=== PATIENT | female | born 1970 | race African-American/Black ===

== ENCOUNTER 2019-03-25 13:21 | Inpatient (IN) | payer OTHER ==
[~2019-03-25] VITALS: Ht 170.2 cm; Wt 100.4 kg
[~2019-03-25 13:21] MED LIST: LORAZEPAM 1 MG TABLET FOR AGITATION PO PRN; QUET300T5 PO; TRAZ-214 PO
--- NOTE | 2019-03-25 13:39 | NUR ---
MS/RN NOTE RECEIVED AMBULATING PATIENT. PATIENT ALERT AND ORIENTED X4. IN ROOM AIR AND DENIES SOB. RESPIRATION REGULAR AND UNLABORED. DENIES PAIN. THE PATIENT IN NO APPARENT DISTRESS. DENIES S-/HI AT THIS TIME. NO IV PRESENT. PATIENT IS GIVEN ORIENTATION TO THE UNIT/FLOOR AND SHE VERBALIZED UNDERSTANDING. WILL CONTINUE TO MONITOR. Addendum: 03/25/19 at 1910 by LAURYN VÁZQUEZ RN THE PATIENT STATED HAVING AUDITORY HALLUCINATIONS. DENIES COMMAND HALLUCINATIONS. PER PATIENT " I JUST HEAR LOTS OF PEOPLE TALKING BUT NOTHING SPECIFIC".
[2019-03-25 14:00] VITALS: BP 123/72
[2019-03-25] MEDS ORDERED: HYDR25TA4 PO (14:29)
[2019-03-25] MEDS ORDERED: ZOLP10TA6 PO (14:29)
[2019-03-25] MEDS ORDERED: LORA1TAB PO (14:29)
[2019-03-25] MEDS ORDERED: IBUP-1953 PO (14:29)
[2019-03-25] MEDS ORDERED: AMLO5TAB4 PO (14:29)
[2019-03-25] MEDS ORDERED: ACET-2030 PO (14:29)
[2019-03-25] MEDS ORDERED: MAGN400O6 PO (14:29)
[2019-03-25] MEDS ORDERED: QUET50TA PO (14:29)
[2019-03-25] MEDS ORDERED: QUET300T2 PO (14:29)
[2019-03-25] MEDS ORDERED: QUET100T PO (14:29)
[2019-03-25] MEDS ORDERED: MAG-55 PO (14:29)
[2019-03-25] MEDS ORDERED: MAG HYDROX/AL HYDROX/SIMETH 30 ML UDC PO PRN (15:00)
[2019-03-25] MEDS ORDERED: IBUPROFEN 200 MG TABLET PO PRN (15:00)
[2019-03-25] MEDS ORDERED: MAGNESIUM HYDROXIDE 30 ML UDC PO PRN (15:00)
[2019-03-25] MEDS ORDERED: ACETAMINOPHEN ES 500 MG TABLET PO PRN (15:00)
[2019-03-25] MEDS ORDERED: LORAZEPAM 1 MG TABLET FOR AGITATION PO PRN (15:00)
--- NOTE | 2019-03-25 15:59 | NUR ---
MS/RN NOTE PER DR AC REGULAR DIET. NOTED AND CARRIED OUT.
[2019-03-25 16:00] VITALS: BP 119/83
--- NOTE | 2019-03-25 18:35 | NUR ---
MS/RN CLOSING NOTE THE PATIENT ALERT AND ORIENTED X4. IN ROOM AIR AND SATURATION IS AT 99%. DENIES SOB. RESPIRATION REGULAR AND UNLABORED. DENIES PAIN. THE PATIENT IN NO APPARENT DISTRESS. THE PATIENT IS DENIES ANY HALLUCINATIONS AT THIS TIME. PATIENT IS CALM AND COOPERATIVE. BED LOW AND LOCKED. SIDE RAILS UP X2. CALL LIGHT WITHIN REACH. WILL ENDORSE TO KILN HEAD HOUSE OPERATOR.
--- NOTE | 2019-03-25 20:06 | NUR ---
RN MS OPENING NOTES RECEIVED PT IN BED, AWAKE ALERT ORIENTED X4, BREATHING EVEN AND UNLABORED ON ROOM AIR. NO COMPLAINT OF PAIN OR DISCOMFORT AT THIS TIME. DENIES HALLUCINATIONS AT THIS TIME, APPEARS CALM AND COOPERATIVE. BED IN LOCKED POSITION, CALL LIGHT WITHIN REACH AT ALL TIMES. WILL CONTINUE TO MONITOR FREQUENTLY
[2019-03-25] MEDS ORDERED: SEROQUEL 300 MG PO ONE (22:00)
--- NOTE | 2019-03-26 06:13 | NUR ---
RN MS CLOSING NOTES PT REMAINS IN BED, SLEEPING, EASILY AROUSED TO NAME CALL. BREATHING EVEN AND UNLABORED ON ROOM AIR, NO SOB. NO COMPLAINT OF PAIN OR DISCOMFORT, DENIES HALLUCINATIONS, CALM AND COOPERATIVE DURING SHIFT. ALL NEEDS MET, COMPLIANT WITH CARE PLAN. BED IN LOCKED POSITION, CALL LIGHT WITHIN REACH AT ALL TIMES, WILL ENDORSE TO DAY NURSE FOR JUANJO
--- NOTE | 2019-03-26 07:40 | NUR ---
MS/RN OPENING NOTE THE PATIENT ALERT AND ORIENTED X4. IN ROOM AIR AND DENIES SOB. RESPIRATION REGULAR AND UNLABORED. DENIES PAIN. THE PATIENT DENIES SI/HI. CONFIRMS HAVING AUDITORY HALLUCINATION. ACCORDING TO HER THERE ARE MULTIPLE VOICES BUT THE NON OF THE VOICES GIVE COMMANDS OR ABOUT SI/HI. PER PATIENT " THEY ARE JUST TALKING". BED LOW AND LOCKED. SIDE RAILS UP X2. CALL LIGHT WITHIN REACH. WILL CONTINUE TO MONITOR.
[2019-03-26 08:00] VITALS: BP 117/80
[2019-03-26] MEDS: AMLODIPINE 5 MG PO SCH (08:14)
[2019-03-26] MEDS: HYDROCHLOROTHIAZIDE 25 MG PO SCH (08:15)
[2019-03-26] MEDS ORDERED: HYDROCHLOROTHIAZIDE 25 MG TABLET PO SCH (09:00)
[2019-03-26] MEDS ORDERED: AMLODIPINE BESYLATE 5 MG TABLET PO SCH (09:00)
[2019-03-26 16:00] VITALS: BP 108/68
--- NOTE | 2019-03-26 18:37 | NUR ---
MS/RN CLOSING NOTE THE PATIENT ALERT AND ORIENTED X4. DENIES PAIN. RESPIRATION REGULAR AND UNLABORED. DENIES SOB. THE PATIENT IN NO APPARENT DISTRESS. DENIES SI/HI. THE PATIENT IN NO APPARENT DISTRESS. BED LOW AND LOCKED. SIDE RAILS UP X2. CALL LIGHT WITHIN REACH. WILL ENDORSE TO SALES REPRESENTATIVE GROCERIES.
[2019-03-26 20:00] VITALS: BP 106/65
[2019-03-26 21:47] VITALS: BP 106/65
[2019-03-26] MEDS ORDERED: SEROQUEL 300 MG PO ONE (22:00)
[2019-03-27 08:00] VITALS: BP 126/88
--- NOTE | 2019-03-27 08:08 | NUR ---
MS RN OPENING NOTES RECEIVED PT SITTING UP IN BED. PT IS A/O X4, AFEBRILE. RESPIRATIONS ARE EVEN AND UNLABORED, NOT IN ANY ACUTE DISTRESS NOTED. PT DENIES ANY PAIN AT THIS TIME, NO C/O SOB, N/V NOTED. NO IV ACCESS. DENIES ANY HALLUCINATIONS, HI/SI. INSTRUCTED PT TO USE CALL LIGHT WHEN ASSISTANCE IS NEEDED, CALL LIGHT IS LEFT WITHIN REACH. WILL CONTINUE TO MONITOR THROUGHOUT SHIFT FOR CONTINUITY OF CARE.
[2019-03-27] MEDS: HYDROCHLOROTHIAZIDE 25 MG PO SCH (08:29)
[2019-03-27] MEDS: AMLODIPINE 5 MG PO SCH (08:30)
--- NOTE | 2019-03-27 13:34 | NUR ---
MS RN NOTES-- PT ABLE TO MAKE NEEDS KNOWN. PT NOT IN ANY APPARENT ACUTE DISTRESS. WILL CONTINUE TO MONITOR.
--- NOTE | 2019-03-27 18:28 | NUR ---
MS RN CLOSING NOTES ALL DUE MEDS GIVEN, NEEDS MET AND RENDERED. PT IS A/O X4, AFEBRILE. RESPIRATIONS ARE EVEN AND UNLABORED, NOT IN ANY ACUTE DISTRESS NOTED. PT DENIES ANY PAIN AT THIS TIME, NO C/O SOB, N/V. NO IV ACCESS. SAFETY MEASURES ARE IN PLACE. REMINDED PT TO USE CALL LIGHT WHEN ASSISTANCE IS NEEDED, CALL LIGHT IS LEFT WITHIN REACH. WILL ENDORSE TO NEXT SHIFT FOR CONTINUITY OF CARE.
--- NOTE | 2019-03-27 19:10 | NUR ---
RN MS OPENING NOTES RECEIVED PATIENT IN BED AWAKE ALERT AND ORIENTED X4, RESPIRATIONS EVEN AND UNLABORED WITH EQUAL RISE AND FALL OF CHEST, DENIES ANY PAIN OR DISCOMFORT, NO IV ACCESS MD AWARE, ORIENTED TO STAFF AND CALL LIGHT AND KEPT WITHIN REACH, FLUIDS OFFERED, IN NO ACUTE DISTRESS. ALL NEEDS ATTENDED AT THIS TIME, WILL CONTINUE TO MONITOR.
[2019-03-27 20:00] VITALS: BP 137/88
[2019-03-27] MEDS ORDERED: SEROQUEL 300 MG PO ONE (22:00)
--- NOTE | 2019-03-28 07:38 | NUR ---
MS RN OPENING NOTES RECEIVED PATIENT AWAKE IN BED IN NO ACUTE SIGNS OF DISTRESS. A/O X4. VERBALLY RESPONSIVE, DENIES PAIN OR ANY DISCOMFORTS AT THIS TIME. ON ROOM AIR, RESPIRATIONS EVEN AND UNLABORED. NO IV ACCESS. SAFETY PRECAUTIONS IN PLACE. BED IN LOW LOCKED POSITION WITH SR UP X2. CALL LIGHT WITHIN REACH. WILL CONTINUE TO MONITOR ACCORDINGLY.
--- NOTE | 2019-03-28 07:39 | NUR ---
RN MS CLOSING NOTES PATIENT IN BED AWAKE ALERT AND ORIENTED X4, RESPIRATIONS EVEN AND UNLABORED WITH EQUAL RISE AND FALL OF CHEST, DENIES ANY PAIN OR DISCOMFORT, NO IV ACCESS MD AWARE, CALL LIGHT KEPT WITHIN REACH, FLUIDS OFFERED, IN NO ACUTE DISTRESS. ALL NEEDS ATTENDED AT THIS TIME, WILL CONTINUE TO MONITOR AND ENDORSE TO NEXT SHIFT, NO CHANGES IN BEHAVIOR.SLEPT WELL.
[2019-03-28 08:00] VITALS: BP 98/58
[2019-03-28] MEDS: AMLODIPINE 5 MG PO SCH (08:41)
[2019-03-28] MEDS: HYDROCHLOROTHIAZIDE 25 MG PO SCH (08:42)
--- NOTE | 2019-03-28 08:43 | NUR ---
RN NOTES PATIENT NOTED WITH BP OF 98/58 MMHG THIS MORNING. HOME BP MEDS NOT GIVEN AND PT AWARE. WILL CONTINUE TO MONITOR.
--- NOTE | 2019-03-28 14:34 | NUR ---
RN NOTES PATIENT PICKED-UP BY MIGUEL FROM DR AC OFFICE FOR [employer] VISIT TO DR. CID EYE BRAINERD PER PROTOCOL BEFORE STARTING INVESTIGATIONAL MEDICATION.
[2019-03-28 16:00] VITALS: BP 100/60
--- NOTE | 2019-03-28 17:36 | NUR ---
RN NOTES PT CAME BACK FROM OPHTHALMOLOGY VISIT ACCOMPANIED BY MIGULE. NO ACUTE SIGNS OF DISTRESS NOTED. WILL CONTINUE TO MONITOR
--- NOTE | 2019-03-28 19:37 | NUR ---
MS RN CLOSING NOTES PATIENT AWAKE AND RESTING IN BED AT THIS TIME. A/O X4. VERBALLY RESPONSIVE. ON ROOM AIR, RESPIRATIONS EVEN AND UNLABORED. NO IV ACCESS. SAFETY PRECAUTIONS IN PLACE. BED IN LOW LOCKED POSITION WITH SR UP X2. CALL LIGHT WITHIN REACH. ALL NEEDS AND CARE ATTENDED WELL. ENDORSED TO SILO TENDER NURSE AARON FOR JUANJO.
[2019-03-28 20:00] VITALS: BP 121/84
--- NOTE | 2019-03-28 20:00 | NUR ---
CLINICAL TRIAL/RN NOTES RECEIVED PATIENT AWAKE, ABLE TO VERBALIZE NEEDS, ALERT, ORIENTED X3, PARTICIPATIVE TO CARE, WITH SELF CARE. RESPIRATIONS EVEN AND UNLABORED, WILL MONITOR FOR ANY CHANGES, SKIN WARM TO TOUCH. BED LOCKED, CALL LIGHTS WITHIN REACH. RECEIVED ENDORSEMENT FROM AM RN FOR JUANJO.
[2019-03-28] MEDS ORDERED: SEROQUEL 150 MG PO ONE (22:00)
--- NOTE | 2019-03-29 07:16 | NUR ---
209 RN NOTES PATIETN ABLE TO VERBALIZE NEES, SKIN WARM TO TOUCH, RESPIRATIONS EVEN AND UNLABORED, SKIN WARM TO TOUCH. MARITZA MONITOR AND ENDORSE TO AM RN FOR JUANJO
--- NOTE | 2019-03-29 07:27 | NUR ---
MS RN OPENING NOTES RECEIVED PATIENT AWAKE IN BED IN NO ACUTE SIGNS OF DISTRESS. A/O X4. ABLE TO MAKE NEEDS KNOWN, DENIES PAIN OR ANY DISCOMFORTS AT THIS TIME. ON ROOM AIR, RESPIRATIONS EVEN AND UNLABORED. NO IV ACCESS. SAFETY MEASURES IN PLACE. BED IN LOW LOCKED POSITION WITH SR UP X2. WILL CONTINUE TO MONITOR ACCORDINGLY.
[2019-03-29 08:00] VITALS: BP 111/70
[2019-03-29] MEDS: AMLODIPINE 5 MG PO SCH (08:27)
[2019-03-29] MEDS: HYDROCHLOROTHIAZIDE 25 MG PO SCH (08:27)
--- NOTE | 2019-03-29 15:00 | NUR ---
RN NOTES PATIENT WENT TO THE [facility] ACCOMPANIED BY NUCLEAR MEDICINE PET CT TECHNOLOGIST TODAY.
[2019-03-29 16:00] VITALS: BP 128/85
--- NOTE | 2019-03-29 18:51 | NUR ---
MS RN CLOSING NOTES PATIENT AWAKE IN BED WATCHING TV. A/O X4. ABLE TO MAKE NEEDS KNOWN. AMBULATORY AND ENCOURAGED TO GET OUT OF HER ROOM TO TAKE BREAK. ON ROOM AIR, RESPIRATIONS EVEN AND UNLABORED, NO ACUTE DISTRESS NOTED. NO IV ACCESS. SAFETY MEASURES IN PLACE. BED IN LOW LOCKED POSITION WITH SR UP X2. CALL LIGHT WITHIN REACH. WILL ENDORSED TO SUPERVISOR TWISTING DEPARTMENT NURSE FOR CONTINUITY OF CARE.
--- NOTE | 2019-03-29 19:10 | NUR ---
MS RN OPENING NOTES RECEIVED PATIENT AWAKE IN BED, ALERT, ORIENTED X 4. BREATHING EVEN AND UNLABORED, IN NO ACUTE SIGNS OF DISTRESS. NO COMPLAINTS OF PAIN OR DISCOMFORT AT THIS TIME. NO IV ACCESS. SAFETY MEASURES IN PLACE. BED IN LOW LOCKED POSITION. WILL CONTINUE TO MONITOR ACCORDINGLY.
[2019-03-29 20:00] VITALS: BP 124/82
[2019-03-29] MEDS ORDERED: SEROQUEL 150 MG PO ONE (22:00)
--- NOTE | 2019-03-30 01:00 | NUR ---
RN NOTES Patient rounds- sleeping comfortably
--- NOTE | 2019-03-30 06:22 | NUR ---
MS RN CLOSING NOTES Patient sleeping in bed, easily arousable. Breathing even and unlabored. Not in any distress, on room air. No IV access. No acute changes overnight. Safety measures in place; call light within reach, bed in low, locked position. Will endorse JUANJO to oncoming RN
[2019-03-30 08:00] VITALS: BP 95/65
--- NOTE | 2019-03-30 08:00 | NUR ---
RN NOTES RECEIVED PATIENT IN THE BED, A/O X3, PATIENT HAS NO ACUTE RESPIRATORY DISTRESS, STABLE, V/S TAKEN BP-95/65, HELD AM BP HOME MEDICATION. ENCOURAGED PATIENT TO EXPRESS FEELINGS AND CONCERNS. PATIENT HAS AUDITORY HALLUCINATION. REFUSED SI/HI AT THIS TIME. PATIENT SELF CARE, AMBULATORY. NEEDS ATTENDED AND ANTICIPATED. SAFETY PRECAUTION MAINTAINED ALL THE TIME.
[2019-03-30 08:55] VITALS: BP 95/65
[2019-03-30] MEDS: AMLODIPINE 5 MG PO SCH (09:00)
[2019-03-30] MEDS: HYDROCHLOROTHIAZIDE 25 MG PO SCH (09:00)
--- NOTE | 2019-03-30 13:00 | NUR ---
RN NOTES PATIENT STABLE, RESTING IN THE BED. CONTINUED MONITORING Q 15 MINS.
[2019-03-30 16:20] VITALS: BP 110/73
--- NOTE | 2019-03-30 18:30 | NUR ---
RN NOTES PATIENT STABLE REFUSED SI/HI AT THIS TIME. REDIRECTABLE. PATIENT SELF CARE. CALL LIGHT WITHIN TO REACH. ENDORSED ONCOMING NURSE FOLLOW PLAN OF CARE.
--- NOTE | 2019-03-30 19:45 | NUR ---
RN OPENING NOTES RECEIVED PATIENT AWAKE IN BED, ALERT, ORIENTED X 4. RESTING COMFORTABLY. NO SIGNS OF RESPIRATORY DISTRESS. DENIES SHORTNESS OF BREATH. PATIENT DENIES PAIN OR DISCOMFORT AT THIS TIME. PATIENT HAS NO IV ACCESS. SAFETY PRECAUTIONS IMPLEMENTED; CALL LIGHT WITHIN REACH, BED LOW, BED LOCKED, SIDE RAILS UP X2. WILL CONTINUE TO MONITOR PATIENT ACCORDINGLY.
[2019-03-30 20:00] VITALS: BP 112/68
[2019-03-30] MEDS ORDERED: SEROQUEL 300 MG PO ONE (22:00)
--- NOTE | 2019-03-30 22:11 | NUR ---
RN NOTES MEDICATION: SEROQUEL FOR 2199. PATIENT STATES SHE ONLY TAKES 1 PILL. NOT 2 PILLS. I ONLY ADMINISTERED 1 PILL PER PATIENT REQUEST.
--- NOTE | 2019-03-31 06:55 | NUR ---
RN CLOSING NOTES PATIENT IS RESTING IN BED COMFORTABLY, EASILY AROUSABLE. PATIENT IS STABLE THROUGHOUT THE NIGHT. NO SI/HI REPORTED. PATIENT COMPLIANT. NO SIGNS OF RESPIRATORY DISTRESS. NO SIGNS OF SOB. NO FACIAL GRIMACING OR DISCOMFORT. ABLE TO STATE NEEDS. NO ACUTE CHANGES OVERNIGHT. SAFETY PRECAUTIONS IMPLEMENTED; CALL LIGHT WITHIN REACH, BED LOW, BED LOCKED, HOB UP, SIDE RAILS UP X2. WILL ENDORSE TO ONCOMING AM NURSE FOR CONTINUITY OF CARE.
--- NOTE | 2019-03-31 07:27 | NUR ---
MS RN OPENING NOTES RECEIVED PT LAYING IN BED, RESTING COMFORTABLY. PT IS A/O X4, AFEBRILE. RESPIRATIONS ARE EVEN AND UNLABORED, NOT IN ANY ACUTE DISTRESS NOTED. PT DENIES ANY PAIN AT THIS TIME, NO C/O SOB, N/V NOTED. NO IV ACCESS. DENIES ANY HALLUCINATIONS, HI/SI. INSTRUCTED PT TO USE CALL LIGHT WHEN ASSISTANCE IS NEEDED, CALL LIGHT IS LEFT WITHIN REACH. WILL CONTINUE TO MONITOR THROUGHOUT SHIFT FOR CONTINUITY OF CARE.
[2019-03-31 08:00] VITALS: BP 105/62
[2019-03-31] MEDS: AMLODIPINE 5 MG PO SCH (08:46)
[2019-03-31] MEDS: HYDROCHLOROTHIAZIDE 25 MG PO SCH (08:46)
--- NOTE | 2019-03-31 08:46 | NUR ---
MS RN NOTES-- BP MEDICATIONS WITHHELD D/T BP 105/62 HR 65. AT RISK FOR HYPOTENSION. PT MADE AWARE.
--- NOTE | 2019-03-31 14:13 | NUR ---
MS RN NOTES-- RECEIVED A CALL FROM PHARMACY STATING THEY SPOKE WITH CLINICAL TRIAL/INVESTIGATIONAL NURSE AND TO HOLD SEROQUEL FOR 2 NIGHTS 03/31-04/01 AND TO START CLINICAL TRIAL DRUG ON MONDAY 04/02. PT MADE AWARE AND AGREED.
[2019-03-31 16:00] VITALS: BP 119/72
--- NOTE | 2019-03-31 19:30 | NUR ---
RN OPEN NOTES RECEIVED PATIENT AWAKE SITTING IN BED. A/OX3. NO SIGNS OF DISTRESS OR DISCOMFORT. BREATHING EVEN AND UNLABORED. DENIES ANY PAIN AT THIS TIME. NO IV ACCESS. PATIENT IS HERE FOR CLINICAL TRIAL. BED IN LOW LOCKED POSITION WITH SIDE RAILS X2. CALL LIGHT WITHIN REACH. WILL CONTINUE TO MONITOR.
[2019-03-31 20:00] VITALS: BP 117/76
--- NOTE | 2019-04-01 07:17 | NUR ---
RN CLOSING NOTES PATIENT RESTING IN BED, EASILY AROUSABLE. A/OX3. NO SIGNS OF DISTRESS OR DISCOMFORT. BREATHING EVEN AND UNLABORED. HAS NO IV ACCESS. NO SIGNIFICANT CHANGES THROUGH THE NIGHT. ALL NEED MET. PATIENT SLEPT 7 HRS. BED IN LOW LOCKED POSITION WITH SIDE RAILS X2. CALL LIGHT WITHIN REACH. ENDORSED TO AM SHIFT FOR JUANJO.
--- NOTE | 2019-04-01 07:25 | NUR ---
RN OPENING NOTE PT RECEIVED IN BED AT LOWEST AND LOCKED POSITION WITH SIDE RAILS UPX2, A/O X4 BREATHING EVEN AND UNLABORED ON RA, NO S/S OF ANY DISTRESS OR PAIN NOTED AT THIS TIME, PT IS ON A CLINICAL TRIAL NO IV IN PLACE, INFORMED BY NIGHT RN THAT SEROQUEL WILL BE HELD TONIGHT DUE TO TRIAL BEGINNING ON 04/02, SAFETY PRECAUTIONS IN PLACE, CALL LIGHT WITHIN REACH, WILL MONITOR PT ACCORDINGLY
[2019-04-01 08:00] VITALS: BP 104/66
[2019-04-01] MEDS: HYDROCHLOROTHIAZIDE 25 MG PO SCH (09:00)
[2019-04-01] MEDS: AMLODIPINE 5 MG PO SCH (09:00)
[2019-04-01 16:00] VITALS: BP 121/89
--- NOTE | 2019-04-01 16:05 | NUR ---
RN NOTE PT WAS GIVEN ATIVAN AT THIS TIME DUE TO FEELING AGITATED
--- NOTE | 2019-04-01 18:55 | NUR ---
RN CLOSING NOTE PT IN BED AT LOWEST AND LOCKED POSITION WITH SIDE RAILS UPX2, A/O X4 BREATHING EVEN AND UNLABORED ON RA, NO S/S OF ANY DISTRESS OR PAIN NOTED AT THIS TIME, SEROQUEL WILL BE HELD TONIGHT DUE TO TRIAL BEGINNING ON 04/02, SAFETY PRECAUTIONS IN PLACE, CALL LIGHT WITHIN REACH, ALL NEEDS ATTENDED TO, WILL MONITOR ENDORSE TO SITE SUPERVISING TECHNICAL OPERATOR RN FOR JUANJO.
--- NOTE | 2019-04-01 19:20 | NUR ---
MS RN OPENING NOTES: RECEIVED PT ON ROOM AIR AND IS TOLERATING WELL. NO SOB NOTED. NO S/S OF DISTRESS. PT ON TELEPHONE AT THIS TIME AND LISTENING TO MUSIC. PT REQUESTING FOR ATIVAN. INFORMED HER THAT IT IS NOT DUE AND SHE RECENTLY HAD IT 3 HOURS AGO. NO IV NOTED AT THIS TIME. BED KEPT IN LOW, LOCKED POSITION, AND SIDE RAILS X 2UP. WILL CONTINUE TO MONITOR PT.
[2019-04-01 20:19] VITALS: BP 126/80
[2019-04-01] MEDS: ZOLPIDEM TARTRATE 10 MG TABLET PO PRN (20:46)
--- NOTE | 2019-04-01 20:46 | NUR ---
MS RN NOTES: PT REQUESTING FOR SLEEPING AID. PT WAS ADMINISTERED AMBIEN 10MG PO. WILL CONTINUE TO MONITOR.
--- NOTE | 2019-04-02 07:05 | NUR ---
MS RN CLOSING NOTES: ALL NEEDS WERE ATTENDED AND ANTICIPATED FOR. PT ASLEEP AND RESTING COMFORTABLY AT THIS TIME. NO IV NOTED. BED KEPT IN LOW, LOCKED POSITION, AND SIDE RAILS X2 UP. WILL ENDORSE TO AM NURSE FOR JUANJO.
[2019-04-02 08:00] VITALS: BP 116/81
--- NOTE | 2019-04-02 08:00 | NUR ---
MS RN CLINICAL TRIAL OPENING NOTES: RECEIVED PT ALERT AND AWAKE,SITTING ON THE BED. NO SOB NOTED. NO S/S OF DISTRESS. PT LISTENING TO MUSIC.WAS PICKED UP AND BROUGHT TO DR AC'[facility] CLIN[facility].MED COMPLIANT.BED KEPT IN LOW, LOCKED POSITION, AND SIDE RAILS X 2UP. WILL CONTINUE TO MONITOR PT.
[2019-04-02] MEDS: AMLODIPINE 5 MG PO SCH (08:47)
[2019-04-02] MEDS: HYDROCHLOROTHIAZIDE 25 MG PO SCH (08:47)
--- NOTE | 2019-04-02 10:00 | NUR ---
PT CAME BACK FROM DR AC'[facility] CLIN[facility] AND WAS ASKING FOR ATIVAN. EXPLAINED THAT IT'S NOT DUE NOT TILL 12NN.
[2019-04-02] MEDS: LORAZEPAM 1 MG TABLET FOR AGITATION PO PRN (12:24)
[2019-04-02 16:00] VITALS: BP 135/87
[2019-04-02] MEDS: INVESTIGATIONAL MED RGH-MD-24 1 CAP PO SCH (16:26)
--- NOTE | 2019-04-02 18:48 | NUR ---
PT IN BED WATCHING TV DENIES ANY DISTRESS.,MED COMPLIANT.WILL CONTINUE TO MONITOR.CALL LIGHT PLACED WITHIN REACH.
--- NOTE | 2019-04-02 19:05 | NUR ---
MS RN OPENING NOTES: RECEIVED PT ON ROOM AIR AND IS TOLERATING WELL AND ON HER PHONE. CONFIRMED WITH PT THAT SHE CANNOT HAVE ANYMORE ATIVAN SHE CANNOT HAVE IT FOR MORE THAN 3 DAYS. PT UNDERSTOOD. NO IV NOTED. NO SI VERBALIZED. BED KEPT IN LOW, LOCKED POSITION, AND SIDE RAILS X 2UP. WILL CONTINUE TO MONITOR PT.
[2019-04-02 20:09] VITALS: BP 127/82
[2019-04-02] MEDS: ZOLPIDEM TARTRATE 10 MG TABLET PO PRN (21:42)
--- NOTE | 2019-04-02 21:44 | NUR ---
MS RN NOTES: PT REQUESTING FOR SLEEPING AID. "I CANNOT SLEEP AND I CANNOT HAVE ATIVAN, SO I WANT A SLEEPING PILL." PT ADMINISTERED AMBIEN 10MG PO. WILL CONTINUE TO MONITOR.
--- NOTE | 2019-04-03 06:47 | NUR ---
MS RN CLOSING NOTES: ALL NEEDS WERE ATTENDED AND ANTICIPATED FOR. PT ASLEEP AT THIS TIME AND RESTING COMFORTABLY. NO IV NOTED. BED KEPT IN LOW, LOCKED POSITION, AND SIDE RAILS X 2UP. WILL CONTINUE TO MONITOR PT.
[2019-04-03 08:00] VITALS: BP 110/70
--- NOTE | 2019-04-03 08:00 | NUR ---
RN CLINICAL TRIAL AM NOTES: RECEIVED PT ALERT AND AWAKE,SITTING ON THE BED. NO SOB NOTED. NO S/S OF DISTRESS. PT LISTENING TO MUSIC. MED COMPLIANT.BED KEPT IN LOW, LOCKED POSITION, AND SIDE RAILS X 2UP. WILL CONTINUE TO MONITOR PT. CALL LIGHT PLACED WITHIN REACH.
[2019-04-03] MEDS: AMLODIPINE 5 MG PO SCH (08:46)
[2019-04-03] MEDS: HYDROCHLOROTHIAZIDE 25 MG PO SCH (08:46)
[2019-04-03 16:00] VITALS: BP 101/60
[2019-04-03] MEDS: INVESTIGATIONAL MED RGH-MD-24 1 CAP PO SCH (17:55)
--- NOTE | 2019-04-03 19:00 | NUR ---
PT SITTING IN BED DENYING ANY PAIN OR DISTRESS. LISTENING TO MUSIC. MED COMPLIANT.CALL LIGHT PLACED WITHIN REACH,.
[2019-04-03 20:00] VITALS: BP 100/68
--- NOTE | 2019-04-03 20:04 | NUR ---
RN OPENING NOTES RECEIVED PATIENT AWAKE, RESTING COMFORTABLY IN BED. PATIENT IS A/O X 4. NO SIGNS OF RESPIRATORY DISTRESS. DENIES SHORTNESS OF BREATH. DENIES PAIN AT THIS TIME. SAFETY PRECAUTIONS IMPLEMENTED; CALL LIGHT WITHIN REACH, BED IN LOWEST POSITION, BED LOCKED, SIDE RAILS UP X2. WILL CONTINUE TO MONITOR PATIENT.
[2019-04-03 20:39] VITALS: BP 100/68
[2019-04-03] MEDS: ZOLPIDEM TARTRATE 10 MG TABLET PO PRN (21:07)
--- NOTE | 2019-04-04 06:47 | NUR ---
RN CLOSING NOTES PATIENT ASLEEP RESTING COMFORTABLY AT THIS TIME. NO IV SITE NOTED. NO SIGNS OF PAIN OR DISTRESS AT THIS TIME. ALL NEEDS WERE ATTENDED AND ANTICIPATED FOR. SAFETY PRECAUTIONS IMPLEMENTED; CALL LIGHT WITHIN REACH, BED IN LOWEST POSITION, BED LOCKED, AND SIDE RAILS UP X2. WILL ENDORSE TO ONCOMING AM NURSE FOR CONTINUITY OF CARE.
[2019-04-04 07:41] VITALS: BP 117/66
[2019-04-04] MEDS: HYDROCHLOROTHIAZIDE 25 MG PO SCH (07:50)
[2019-04-04] MEDS: AMLODIPINE 5 MG PO SCH (07:50)
[2019-04-04 08:00] VITALS: BP 117/66
--- NOTE | 2019-04-04 08:00 | NUR ---
RN CLINICAL TRIAL AM NOTES: RECEIVED PT ALERT AND AWAKE,SITTING ON THE BED. NO SOB NOTED. NO C/O OF DISTRESS. PT LISTENING TO MUSIC. MED COMPLIANT.BED KEPT IN LOW, LOCKED POSITION, AND SIDE RAILS X 2UP. WILL CONTINUE TO MONITOR PT. CALL LIGHT PLACED WITHIN REACH.
[2019-04-04 16:00] VITALS: BP 113/73
[2019-04-04] MEDS: INVESTIGATIONAL MED RGH-MD-24 1 CAP PO SCH (17:29)
--- NOTE | 2019-04-04 18:11 | NUR ---
PT SITTING IN BED LISTENING TO MUSIC.DENIES ANY DISTRESS.,MED COMPLIANT.WILL CONTINUE TO MONITOR.CALL LIGHT PLACED WITHIN REACH.
[2019-04-04 20:00] VITALS: BP 116/76
[2019-04-04 20:27] VITALS: BP 116/76
[2019-04-04] MEDS: ZOLPIDEM TARTRATE 10 MG TABLET PO PRN (21:10)
--- NOTE | 2019-04-04 21:15 | NUR ---
RN NOTES PATIENT REQUESTED AMBIEN FOR SLEEP. V/S 116/76, HR 84, T 98.8, R18, O2-97% PRIOR TO ADMINISTRATION.
--- NOTE | 2019-04-05 06:58 | NUR ---
RN CLOSING NOTES PATIENT ASLEEP RESTING COMFORTABLY AT THIS TIME. NO IV SITE NOTED. NO SIGNS OF PAIN OR DISTRESS AT THIS TIME. ALL NEEDS WERE ATTENDED AND ANTICIPATED FOR. MED COMPLIANT. DENIES ANY THOUGHTS OF HARMING HERSELF. SAFETY PRECAUTIONS IMPLEMENTED; CALL LIGHT WITHIN REACH, BED IN LOWEST POSITION, BED LOCKED, AND SIDE RAILS UP X2. WILL ENDORSE TO ONCOMING AM NURSE FOR CONTINUITY OF CARE.
--- NOTE | 2019-04-05 07:43 | NUR ---
MS RN NOTES PATIENT RECEIVED RESTING INSIDE ROOM. AWAKE, ALERT AND ORIENTED, VERBALLY RESPONSIVE AND RESPONDS TO VERBAL AND TACTILE STIMULI. BREATHING EVEN AND UNLABORED. NO ACUTE DISTRESS AT THIS TIME. PATIENT CALM AND RELAXED. WILL CONTINUE TO MONITOR. BED LOCKED AND IN LOW POSITION. BILATERAL UPPER SIDE RAILS UP AND LOCKED. CALL LIGHT WITHIN EASY REACH
[2019-04-05 08:12] VITALS: BP 111/71
[2019-04-05] MEDS: HYDROCHLOROTHIAZIDE 25 MG PO SCH (08:29)
[2019-04-05] MEDS: AMLODIPINE 5 MG PO SCH (08:29)
[2019-04-05 16:11] VITALS: BP 118/78
[2019-04-05] MEDS: LORAZEPAM 1 MG TABLET FOR AGITATION PO PRN (16:15)
[2019-04-05] MEDS: INVESTIGATIONAL MED RGH-MD-24 1 CAP PO SCH (16:32)
--- NOTE | 2019-04-05 18:51 | NUR ---
MS RN NOTES PATIENT RESTING INSIDE ROOM. AWAKE, ALERT AND ORIENTED X 4, NO ACUTE DISTRESS. DENIES ANY PAIN OR DISCOMFORT. NO CHANGES IN LOC NOTED AT THIS TIME. WILL ENDORSE TO INCOMING SHIFT FOR JUANJO. BED LOCKED AND IN LOW POSITION. BILATERAL UPPER SIDE RAILS UP AND LOCKED. CALL LIGHT WITHIN EASY REACH
--- NOTE | 2019-04-05 19:29 | NUR ---
MS RN RECEIVE PT IN BED AWAKE A/O X 4 NO S/S OF DISTRESS, RESPIRATIONS EVEN AND UNLABORED, SAFETY MEASURES IN PLACE. WILL CONTINUE TO MONITOR
[2019-04-05 20:00] VITALS: BP 117/79
--- NOTE | 2019-04-06 06:17 | NUR ---
PT SLEPT WELL 9 HOURS. STABLE NO S/S OF DISTRESS, NO AKATHISIA OR TREMOR NO EPS NO MEDICAL OR PSYCH INSTABILITY NOTED. DENIES ANY OTHER AE BESIDES INCREASED TIREDNESS. COOPERATIVE. APPROPRIATE BEHAVIOR. NEEDS ATTENDED AND ANTICIPATED, SAFETY MEASURE AT ALL TIMES. ENDORSE TO NEXT SHIFT.
--- NOTE | 2019-04-06 07:30 | NUR ---
RN MS NOTES PT AWAKE, WALKING INSIDE HER ROOM, ALERT AND ORIENTED, NO COMPLAINT OF PAIN, BREATHING PATTERN NORMAL, CALL LIGHT WITHIN REACH.
[2019-04-06 07:51] VITALS: BP 114/78
[2019-04-06] MEDS: AMLODIPINE 5 MG PO SCH (08:38)
[2019-04-06] MEDS: HYDROCHLOROTHIAZIDE 25 MG PO SCH (08:38)
--- NOTE | 2019-04-06 12:23 | NUR ---
RN MS NOTES PT AWAKE, ALERT AND ORIENTED, SITTING IN HER CHAIR, NO COMPLAINT OF PAIN, RESPIRATIONS NORMAL, CALL LIGHT WITHIN REACH, AMBULATES WITH STEADY GAIT.
[2019-04-06 16:40] VITALS: BP 121/84
[2019-04-06] MEDS: INVESTIGATIONAL MED RGH-MD-24 1 CAP PO SCH (16:47)
--- NOTE | 2019-04-06 18:54 | NUR ---
RN MS NOTES PT IN HER ROOM, SITTING IN HER CHAIR, NO COMPLAINT OF PAIN OR ANY DISCOMFORT, RESPIRATIONS NORMAL, CALL LIGHT WITHIN REACH, COMPLIANT WITH MEDS AND INTERVENTIONS, ABLE WALK WITH STEADY GAIT, NEEDS ATTEDED.
--- NOTE | 2019-04-06 19:09 | NUR ---
MS RN RECEIVE PT WATCHING TV A/O X 4 CALM NO S/S OF DISTRESS, RESPIRATIONS EVEN AND UNLABORED, SAFETY MEASURES IN PLACE. WILL CONTINUE TO MONITOR
[2019-04-06 19:49] VITALS: BP 127/78
[2019-04-06] MEDS: ZOLPIDEM TARTRATE 10 MG TABLET PO PRN (20:58)
--- NOTE | 2019-04-07 06:09 | NUR ---
ASLEEP AND EASILY AWAKEN. TOLERATING ROOM AIR 99%. NO AKATHISIA OR TREMOR NO EPS NO MEDICAL OR PSYCH INSTABILITY NOTED.APPROPRIATE BEHAVIOR. NEEDS ATTENDED AND ANTICIPATED, SLEPT WELL 10 HOURS. SAFETY MEASURE AT ALL TIMES. ENDORSE TO NEXT SHIFT.
--- NOTE | 2019-04-07 07:49 | NUR ---
MS RN NOTES PATIENT RECEIVED RESTING INSIDE ROOM. AWAKE, ALERT AND ORIENTED X 4, VERBALLY RESPONSIVE AND RESPONDS TO VERBAL AND TACTILE STIMULI. NO ACUTE DISTRESS. DENIES ANY PAIN OR DISCOMFORT. WILL CONTINUE TO MONITOR. BED LOCKED AND IN LOW POSITION. BILATERAL UPPER SIDE RAILS UP AND LOCKED. CALL LIGHT WITHIN EASY REACH
[2019-04-07 08:00] VITALS: BP 111/75
[2019-04-07] MEDS: AMLODIPINE 5 MG PO SCH (08:09)
[2019-04-07] MEDS: HYDROCHLOROTHIAZIDE 25 MG PO SCH (08:10)
[2019-04-07] MEDS: LORAZEPAM 1 MG TABLET FOR AGITATION PO PRN (14:27)
[2019-04-07 15:49] VITALS: BP 117/81
[2019-04-07] MEDS: INVESTIGATIONAL MED RGH-MD-24 1 CAP PO SCH (16:09)
--- NOTE | 2019-04-07 18:13 | NUR ---
MS RN NOTES PATIENT RESTING INSIDE ROOM. AWAKE, ALERT AND ORIENTED, NO ACUTE DISTRESS. DENIES ANY PAIN OR DISCOMFORT. NO CHANGES IN LOC NOTED. WILL ENDORSE TO INCOMING SHIFT FOR JUANJO. BED LOCKED AND IN LOW POSITION. BILATERAL UPPER SIDE RAILS UP AND LOCKED. CALL LIGHT WITHIN EASY REACH
[2019-04-07 20:16] VITALS: BP 117/73
[2019-04-07] MEDS: ZOLPIDEM TARTRATE 10 MG TABLET PO PRN (21:13)
--- NOTE | 2019-04-08 07:30 | NUR ---
MS/RN OPENING NOTE THE PATIENT IS ALERT AND ORIENTED X4. DENIES PAIN. DENIES SOB. RESPIRATION REGULAR AND UNLABORED. PATIENT IS IN ROOM AIR. THE PATIENT DENIES SI/HI. BED LOW AND LOCKED. SIDE RAILS UP X2. CALL LIGHT WITHIN REACH. WILL CONTINUE TO MONITOR.
[2019-04-08] MEDS: AMLODIPINE 5 MG PO SCH (08:25)
[2019-04-08] MEDS: HYDROCHLOROTHIAZIDE 25 MG PO SCH (08:25)
[2019-04-08 08:44] VITALS: BP 112/72
--- NOTE | 2019-04-08 09:30 | NUR ---
MS/RN NOTE THE PATIENT ALERT AND ORIENTED X4. DENIES SI/HI. IN ROOM AIR AND SATURATION IS AT 98%. DENIES SOB. RESPIRATION REGULAR AND UNLABORED. DENIES PAIN. THE PATIENT IN NO APPARENT DISTRESS. DISCHARGE EDUCATION PROVIDED AND THE PATIENT VERBALIZED UNDERSTANDING. THE PATIENT IS PICKED UP BY CLINIC STAFF. LEFT IN STABLE CONDITION.
== END 2019-04-08 09:30 | disposition home or self-care (01) | DRG 951 ==
LOC: MEDSG2 13:21
PROVIDERS: ADMIT Psychiatry & Neurology Psychiatry; ATTEND Psychiatry & Neurology Psychiatry
DX: Z00.6 Encounter for examination for normal comparison and control in clinical research program (principal); F20.0 Paranoid schizophrenia; I10 Essential (primary) hypertension; Z79.899 Other long term (current) drug therapy; Z90.710 Acquired absence of both cervix and uterus; G47.00 Insomnia, unspecified
CPT/HCPCS: 87081-TC; G0378

== ENCOUNTER 2020-12-15 09:33 | Inpatient (IN) | payer OTHER ==
[~2020-12-15] VITALS: Ht 170.2 cm; Wt 106.1 kg
[~2020-12-15 09:33] MED LIST changes: +ACET-2030 PO; +AMLO5TAB4 PO; +HYDR25TA4 PO; +IBUP-1953 PO; +LORA1TAB PO; -LORAZEPAM 1 MG TABLET FOR AGITATION PO PRN; +MAG-55 PO; +MAGN400O6 PO; +QUET100T PO; +QUET300T2 PO; -QUET300T5 PO; +QUET50TA PO; -TRAZ-214 PO; +ZOLP10TA6 PO
[2020-12-15] MEDS ORDERED: ZOLPIDEM TARTRATE 10 MG TABLET PO PRN (14:00)
[2020-12-15] MEDS ORDERED: ACETAMINOPHEN ES 500 MG TABLET PO PRN (14:00)
[2020-12-15] MEDS ORDERED: MAGNESIUM HYDROXIDE 30 ML UDC PO PRN (14:00)
[2020-12-15] MEDS ORDERED: LORAZEPAM 1 MG TABLET FOR AGITATION PO PRN (14:00)
[2020-12-15] MEDS ORDERED: IBUPROFEN 200 MG TABLET PO PRN (14:00)
[2020-12-15] MEDS ORDERED: MAG HYDROX/AL HYDROX/SIMETH 30 ML UDC PO PRN (14:00)
--- NOTE | 2020-12-15 14:35 | NUR ---
MS RN ADMITTING/OPENING NOTE PT ARRIVED IN UNIT AT 1335. PT IS AWAKE, A/O X 4, KYRGYZ SPEAKING AND ABLE TO MAKE NEEDS KNOWN. PT HAS NO C/O PAIN AT THIS TIME. PT IS ON ROOM AIR WITH NO S/SX OF RESPIRATORY DISTRESS NOTED. PT IS AMBULATORY WITH STEADY GAIT. PT ORIENTED TO UNIT AND TO ROOM. PT EDUCATED ON IMPORTANCE OF AND USE OF CALL LIGHT WITH SUCCESSFUL RETURN DEMONSTRATION AND VERBALIZATION OF UNDERSTANDING. ADMISSION ORDERS RECEIVED AND CARRIED OUT. SAFETY MEASURES IN PLACE: BED IN LOWEST POSITION AND LOCKED. CALL LIGHT PLACED WITHIN REACH. WILL CONTINUE TO MONITOR.
[2020-12-15 16:00] VITALS: BP_SYST 107; BP_DIAS 72; BP_DIAS 82
--- NOTE | 2020-12-15 18:24 | NUR ---
MS RN ADMITTING/OPENING NOTE PT AWAKE, IN ROOM, RESTING COMFORTABLY. PT IS A/O X 4 WITH NO C/O PAIN AT THIS TIME. PT IS ON ROOM AIR WITH NO S/SX OF RESPIRATORY DISTRESS NOTED. ALL CARE, NEEDS, MEDICATIONS AND TREATMENTS GIVEN ON TIME ORDERED PER MD ORDER. SAFETY MEASURES IN PLACE: BED IN LOWEST, LOCKED POSITION. CALL LIGHT PLACED WITHIN REACH. WILL ENDORSE TO JUNIOR [employer] NURSE. Addendum: 12/15/20 at 1827 by PILLO GRIGGS RN MS RN CLOSING NOTE PT AWAKE, IN ROOM, RESTING COMFORTABLY. PT IS A/O X 4 WITH NO C/O PAIN AT THIS TIME. PT IS ON ROOM AIR WITH NO S/SX OF RESPIRATORY DISTRESS NOTED. ALL CARE, NEEDS, MEDICATIONS AND TREATMENTS GIVEN ON TIME ORDERED PER MD ORDER. SAFETY MEASURES IN PLACE: BED IN LOWEST, LOCKED POSITION. CALL LIGHT PLACED WITHIN REACH. WILL ENDORSE TO JUNIOR [employer] BU[employer]ER NURSE.
--- NOTE | 2020-12-15 19:05 | NUR ---
MS RN OPENING NOTES: RECEIVED PATIENT RESTING IN BED, A/O X4. NO S/S OF DISTRESS NOTED. CALL LIGHT WITHIN REACH. BED IN LOWEST AND LOCKED POSITION. INSTRUCTED PT TO INFORM STAFF BEFORE SHE GOES DOWN TO SMOKE, AND WHEN SHE COMES BACK ,PT VERBALIZED UNDERSTANDING.
[2020-12-15 20:38] VITALS: BP 117/73
[2020-12-15] MEDS ORDERED: SEROQUEL 300 MG PO SCH (22:00)
--- NOTE | 2020-12-16 05:39 | NUR ---
MS RN CLOSING NOTES: PATIENT IN BED, ASLEEP,EASILY AROUSABLE, NO S/S OF DISTRESS NOTED. CALL LIGHT WITHIN REACH. BED IN LOWEST AND LOCKED POSITION. RESTED THROUGHOUT THE NIGHT. NO COMPLAIN OF PAIN.
--- NOTE | 2020-12-16 07:38 | NUR ---
RN MS NOTES PT IN BED, ASLEEP, EASY TO AROUSE, ALERT AND ORIENTED, DENIES PAIN, NOT IN DISTRESS, CALL LIGHT WITHIN REACH, NEEDS ATTENDED, BREAKFAST SERVED.
[2020-12-16 08:00] VITALS: BP 116/83
[2020-12-16] MEDS: HYDROCHLOROTHIAZIDE 25 MG TABLET PO SCH (08:31)
[2020-12-16] MEDS: AMLODIPINE BESYLATE 5 MG TABLET PO SCH (08:32)
[2020-12-16 16:00] VITALS: BP 108/72
--- NOTE | 2020-12-16 18:59 | NUR ---
RN MS NOTES PT IN BED, AWAKE, ALERT AND ORIENTED, NO COMPLAINT AT THIS TIME, NO BEHAVIOR PROBLEM, NOT IN DISTRESS, STAYS IN HER ROOM MOSTLY, NEEDS ATTENDED.
--- NOTE | 2020-12-16 19:30 | NUR ---
PATIENT AWAKE AND A/OX4. SITTING UP IN BED USING SMARTPHONE. NO REPORTS OF PAIN AND NO SIGNS OF DISTRESS NOTED. SAFETY MEASURES IN PLACE. BED IN LOW POSITION AND LOCKED. CALL LIGHT WITHIN REACH. WILL CONTINUE TO MONITOR.
[2020-12-16 20:00] VITALS: BP 111/73
[2020-12-16] MEDS: SEROQUEL XR 50 MG PO SCH (22:11)
--- NOTE | 2020-12-17 | NUR ---
PATIENT SLEEPING COMFORTABLY AT THIS TIME. WILL CONTINUE TO MONITOR.
--- NOTE | 2020-12-17 04:00 | NUR ---
PATIENT ASLEEP. WILL CONTINUE TO MONITOR.
[2020-12-17 08:00] VITALS: BP 108/72
--- NOTE | 2020-12-17 08:00 | NUR ---
MS RN OPENING NOTES: RECEIVED PT AWAKE, CURRENTLY IN RESTROOM. A/OX4. NO REPORTS OF PAIN AND NO SIGNS OF DISTRESS NOTED. SAFETY MEASURES IN PLACE. BED IN LOW POSITION AND LOCKED. CALL LIGHT WITHIN REACH. WILL CONTINUE TO MONITOR.
[2020-12-17] MEDS: HYDROCHLOROTHIAZIDE 25 MG TABLET PO SCH (08:30)
[2020-12-17] MEDS: AMLODIPINE BESYLATE 5 MG TABLET PO SCH (08:30)
[2020-12-17 16:00] VITALS: BP 122/77
--- NOTE | 2020-12-17 18:42 | NUR ---
MS RN CLOSING NOTES: PATIENT LYING IN BED, WATCHING TV. NO PAIN NOTED, NO S/S OF DISTRESS NOTED. CALL LIGHT WITHIN REACH. BED IN LOWEST AND LOCKED POSITION. WILL ENDORSE TO TRAFFIC ENGINEERING DIRECTOR NURSE.
[2020-12-17 20:00] VITALS: BP 104/70
--- NOTE | 2020-12-17 22:00 | NUR ---
MS SUPERVISOR PHOSPHATIC FERTILIZER NOTES' PT SEEN IN BED LYING WHILE WATCHING TV. PT STATED THAT WHY HER MEDS LATE BECAUSE AT HOME SHE'S TAKING HER MEDS BY 9 PM . I EXPLAINED TO HER THAT THE ORDERED IS 10 PM NOT 9 PM . WE HAVE TO FOLLOWED WHAT THE DOCTORS ORDERED AND WHAT THE PHARMACY PUT IN NOT THE TIME THAT SHE FOLLOWED AT HOME. THEN PATIENT SAID "OK ". KEPT HER WARM AND COMFORTABLE AT ALL TIMES. PLACE CALL LIGHT AT REACH.
[2020-12-17] MEDS: SEROQUEL XR 50 MG PO SCH (22:15)
--- NOTE | 2020-12-18 03:44 | NUR ---
MS MUSIC INDUSTRY INTERNSHIP NOTES PT REMAINS SLEEPING AT THIS TIME. WILL CONTINUE MONITORING.
--- NOTE | 2020-12-18 06:45 | NUR ---
ms codifier closing notes pt slept well and stable throughout the night. no signs of any behavioral issue at this time. kept her warm and comfortable at all times. will continue monitoring and will endorse to am nurse for continuity of care.
[2020-12-18 08:00] VITALS: BP 121/77
--- NOTE | 2020-12-18 08:09 | NUR ---
MS RN OPENING NOTES: RECEIVED PT LYING IN BED. AWAKE, A/OX4. NO REPORTS OF PAIN AND NO SIGNS OF DISTRESS NOTED. SAFETY MEASURES IN PLACE. BED IN LOW POSITION AND LOCKED. CALL LIGHT WITHIN REACH. WILL CONTINUE TO MONITOR.
[2020-12-18] MEDS: AMLODIPINE BESYLATE 5 MG TABLET PO SCH (08:41)
[2020-12-18] MEDS: HYDROCHLOROTHIAZIDE 25 MG TABLET PO SCH (08:41)
[2020-12-18 16:00] VITALS: BP 115/76
--- NOTE | 2020-12-18 18:09 | NUR ---
MS RN CLOSING NOTES: PATIENT LYING IN BED, AWAKE AND WATCHING TV. A/O X4. NO PAIN NOTED, NO S/S OF DISTRESS NOTED. CALL LIGHT WITHIN REACH. BED IN LOWEST AND LOCKED POSITION. WILL ENDORSE TO BABBITTER NURSE.
--- NOTE | 2020-12-18 19:30 | NUR ---
MS/RN OPENING NOTES RECEIVED PATIENT IN BED RESTING. PATIENT IS ALERT AND ORIENTED X 4. PATIENT BREATHING IS EVEN AND UNLABORED. NO SIGNS OF SOB OR RESPIRATORY DISTRESS NOTED. PATIENT STATES NO PAIN AT THIS TIME. SAFETY MEASURES ARE IN PLACE, BED IS LOCKED AND PLACED IN THE LOW POSITION, SIDE RAILS UP X 2, CALL LIGHT IS WITHIN REACH. WILL CONTINUE TO MONITOR THROUGH OUT SHIFT.
[2020-12-18 20:00] VITALS: BP 100/73
[2020-12-18] MEDS: SEROQUEL XR 50 MG PO SCH (21:48)
--- NOTE | 2020-12-19 06:40 | NUR ---
MS/RN CLOSING NOTES PATIENT IN BED SLEEPING EASY TO AROUSE. PATIENT IS ALERT AND ORIENTED X 4. PATIENT BREATHING IS EVEN AND UNLABORED. NO SIGNS OF SOB OR RESPIRATORY DISTRESS NOTED. PATIENT STATES NO PAIN AT THIS TIME. PATIENT ABLE TO GET SOME SLEEP DURING THE NIGHT. ALL NEEDS HAVE BEEN MET DURING SHIFT SAFETY MEASURES ARE IN PLACE, BED IS LOCKED AND PLACED IN THE LOW POSITION, SIDE RAILS UP X 2, CALL LIGHT IS WITHIN REACH. WILL ENDORSE CARE TO DAY SHIFT NURSE.
--- NOTE | 2020-12-19 07:48 | NUR ---
MS/RN NOTES RECEIVED PATIENT ON BED AWAKE ALERT AND ORIENTED X4. PATIENT IS ON ROOM AIR SATURATING WELL. PATIENT IN NO APPARENT RESPIRATORY DISTRESS NOTED. NO COMPLAINED OF PAIN NOTED AT THIS TIME. WILL CONTINUE TO MONITOR.
[2020-12-19 08:00] VITALS: BP 131/85
[2020-12-19] MEDS: HYDROCHLOROTHIAZIDE 25 MG TABLET PO SCH (08:16)
[2020-12-19] MEDS: AMLODIPINE BESYLATE 5 MG TABLET PO SCH (08:16)
[2020-12-19 16:00] VITALS: BP 115/77
--- NOTE | 2020-12-19 18:42 | NUR ---
MS/RN CLOSING NOTES PATIENT IS ON BED. ALERT AND ORIENTED X4. PATIENT IS ON ROOM AIR SATURATION 98%. PATIENT IN NO APPARENT RESPIRATORY DISTRESS NOTED. NO COMPLAINED OF PAIN AT THIS TIME. ALL NEEDS HAVE BEEN MET DURING SHIFT SAFETY MEASURES ARE IN PLACE, BED IS LOCKED AND PLACED IN THE LOW POSITION, SIDE RAILS UP X 2, CALL LIGHT IS WITHIN REACH. WILL ENDORSE TO SPRAY DRY OPERATOR FOR JUANJO.
[2020-12-19 20:00] VITALS: BP 103/72
--- NOTE | 2020-12-20 06:30 | NUR ---
MS RN NOTES AWAKE & RESPONSIVE. NOT IN ANY DISTRESS. NO SOB NOTED. DENIES ANY PAIN OR DISCOMFORT AT THIS TIME. MONITORED ACCORDINGLY. SLEPT FOR 8 HOURS. WILL ENDORSE TO NEXT SHIFT.
--- NOTE | 2020-12-20 07:40 | NUR ---
MS/RN OPENING NOTES RECEIVED PATIENT ON BED AWAKE ALERT AND ORIENTED X4. PATIENT IS ON ROOM AIR SATURATING WELL. PATIENT IN NO APPARENT RESPIRATORY DISTRESS NOTED. NO COMPLAINED OF PAIN NOTED AT THIS TIME. WILL CONTINUE TO MONITOR.
[2020-12-20 08:00] VITALS: BP 120/77
[2020-12-20] MEDS: AMLODIPINE BESYLATE 5 MG TABLET PO SCH (08:35)
[2020-12-20] MEDS: HYDROCHLOROTHIAZIDE 25 MG TABLET PO SCH (08:35)
[2020-12-20 16:00] VITALS: BP 107/76
--- NOTE | 2020-12-20 18:45 | NUR ---
MS/RN CLOSING NOTES PATIENT IS ON BED. ALERT AND ORIENTED X4. PATIENT IS ON ROOM AIR SATURATION 95%. PATIENT IN NO APPARENT RESPIRATORY DISTRESS NOTED. NO COMPLAINED OF PAIN AT THIS TIME. ALL NEEDS HAVE BEEN MET DURING SHIFT SAFETY MEASURES ARE IN PLACE, BED IS LOCKED AND PLACED IN THE LOW POSITION, SIDE RAILS UP X 2, CALL LIGHT IS WITHIN REACH. WILL ENDORSE TO WIRED SWEATBAND CUTTER FOR JUANJO.
--- NOTE | 2020-12-20 19:56 | NUR ---
MS RN OPENING NOTES PATIENT A/OX4. ON ROOM AIR, TOLERATING WELL WITH NO SOB. DENIES PAIN OR DISCOMFORT AT THIS TIME. NO IV ACCESS. ALL NEEDS ARE ME. SAFETY PRECAUTIONS IN PLACE: BED IN LOWEST LOCKED POSITION; SIDERAILS UPX2; CALL LIGHT WITHIN REACH. PATIENT MEDICALLY STABLE.
[2020-12-20 20:00] VITALS: BP 124/79
--- NOTE | 2020-12-21 06:29 | NUR ---
MS RN CLOSING NOTES PATIENT A/OX4. ON ROOM AIR, TOLERATING WELL WITH NO SOB. DENIES PAIN OR DISCOMFORT AT THIS TIME. NO IV ACCESS. ALL NEEDS ARE ME. SAFETY PRECAUTIONS IN PLACE: BED IN LOWEST LOCKED POSITION; SIDERAILS UPX2; CALL LIGHT WITHIN REACH. PATIENT MEDICALLY STABLE.
--- NOTE | 2020-12-21 07:42 | NUR ---
MS RN OPENING NOTES PATIENT A/O X 4 ON ROOM AIR, BREATHING WELL WITH NO SOB, NO PAIN OR DISCOMFORT NOTED AT THIS TIME, NO IV PRESENT, ALL NEEDS ATTENDED TO AND MET BY STAFF, SIDE RAILS X2 BED IN LOWEST POSITION , CALL LIGHT WITHIN REACH AND ANSWERED PROMPTLY, PATIENT MEDICALLY STABLE AT THIS TIME.
[2020-12-21 08:00] VITALS: BP 118/82
[2020-12-21] MEDS: AMLODIPINE BESYLATE 5 MG TABLET PO SCH (08:21)
[2020-12-21] MEDS: HYDROCHLOROTHIAZIDE 25 MG TABLET PO SCH (08:21)
[2020-12-21 16:00] VITALS: BP 117/76
--- NOTE | 2020-12-21 18:44 | NUR ---
MS RN CLOSING NOTES PATIENT A/O X 4 ON ROOM AIR, BREATHING WELL WITH NO SOB, NO PAIN OR DISCOMFORT NOTED AT THIS TIME, NO IV PRESENT, ALL NEEDS ATTENDED TO AND MET BY STAFF, SIDE RAILS X2 BED IN LOWEST POSITION , CALL LIGHT WITHIN REACH AND ANSWERED PROMPTLY, PATIENT MEDICALLY STABLE AT THIS TIME.
[2020-12-21 20:00] VITALS: BP 121/82
--- NOTE | 2020-12-21 20:29 | NUR ---
MSRN FULLY AWAKE, VERY PLEASANT LADY. AWAKE HER SEROQUEL WAS RESUMED TONIGHT. WANTED TO TAKE MEDS BY 10 PM. NO NEEDS ATTENDED OF THIS TIME. SAFETY PRECAUTIONS EMPHASIZED, WELL UNDERSTOOD.
--- NOTE | 2020-12-21 22:00 | NUR ---
MSRN REMINDED NOTHING B MOUTH ORDERED TONIGHT AFTER SEROQUEL. WENT BACK TO SLEEP AND STATED WILL CALL IF NEEDED
[2020-12-21] MEDS: SEROQUEL 300 MG PO SCH (22:20)
--- NOTE | 2020-12-22 06:59 | NUR ---
MSRN STATED SHE SLEPT FOR 8 HRS. NPO REMINDED
[2020-12-22 08:00] VITALS: BP 114/75
--- NOTE | 2020-12-22 08:09 | NUR ---
RN NOTES PATIENT CURRENTLY NPO PER PREVIOUS SHIFT RN REPORT.
[2020-12-22] MEDS: HYDROCHLOROTHIAZIDE 25 MG TABLET PO SCH (08:10)
[2020-12-22] MEDS: AMLODIPINE BESYLATE 5 MG TABLET PO SCH (08:10)
--- NOTE | 2020-12-22 09:11 | NUR ---
RN NOTES RECEIVED CALL FROM DR. AC'S OFFICE PER PLASTIC PARTS FABRICATOR THAT PATIENT IS NOT ON THE CLINICAL TRIAL ANYMORE AND WILL BE DISCHARGED THIS MONDAY AND THAT PATIENT IS OKAY TO EAT BREAKFAST; ORDER TO CHANGE DIET STATUS NOTED. DIETARY AND PATIENT MADE AWARE.
[2020-12-22] MEDS ORDERED: LORAZEPAM 1 MG TABLET FOR AGITATION PO PRN (12:00)
[2020-12-22 16:00] VITALS: BP_SYST 116; BP_SYST 119; BP_DIAS 82; BP_DIAS 91
[2020-12-22 20:00] VITALS: BP 104/68
[2020-12-22] MEDS ORDERED: INVEST MED MK-8189-008-02 MISC 1 DOSE PO SCH (20:00)
--- NOTE | 2020-12-22 20:00 | NUR ---
MSRN RESTING QUIETLY, DENIES ANY DISCOMFORTS.STABLE FOR NOW
--- NOTE | 2020-12-22 22:20 | NUR ---
MSRN DUE MED ADMINISTERED. NO NEEDS MADE. REMAINS STABLE
[2020-12-22] MEDS: SEROQUEL 300 MG PO SCH (22:27)
--- NOTE | 2020-12-23 07:30 | NUR ---
PT RECEIVED RESTING COMFORTABLY IN BED. NO S/S OR C/O PAIN OR DISTRESS NOTED. SIDE RAILS UP X2, CALL LIGHT LEFT WITHIN REACH. WILL CONTINUE PLAN OF CARE.
[2020-12-23 08:00] VITALS: BP 116/76
--- NOTE | 2020-12-23 08:00 | NUR ---
MSRN ENDORSED TO INCOMING RN. PATIENT STABLE
[2020-12-23] MEDS: HYDROCHLOROTHIAZIDE 25 MG TABLET PO SCH (08:37)
[2020-12-23] MEDS: AMLODIPINE BESYLATE 5 MG TABLET PO SCH (08:38)
[2020-12-23 10:00] VITALS: BP 116/76
[2020-12-23 16:00] VITALS: BP_SYST 123; BP_SYST 144; BP_DIAS 67; BP_DIAS 83
--- NOTE | 2020-12-23 18:45 | NUR ---
CHANGE OF SHIFT REPORT PT RESTING COMFORTABLY IN BED. NO S/S OR C/O PAIN OR DISTRESS NOTED. SIDERAILS UP X2, CALL LIGHT LEFT WITHIN REACH. PT KEPT CLEAN, DRY, AND COMFORTABLE. NO SIGNIFICANT CHANGES SINCE PREVIOUS SHIFT. WILL GIVE REPORT TO LEAH MEEKS.
--- NOTE | 2020-12-23 19:40 | NUR ---
MS/RN OPENING NOTE RECEIVED PATIENT UP IN ROOM. ALERT AND ORIENTED X 4. ABLE TO MAKE NEEDS KNOWN. NO COMPLAINTS OF PAIN AT THIS TIME. CONTINUES ON REGULAR DIET. CALL LIGHT WITHIN REACH. ASPIRATION, FALL AND SAFETY PRECAUTIONS MAINTAINED. WILL CONTINUE TO MONITOR.
[2020-12-23 20:00] VITALS: BP 121/90
[2020-12-23] MEDS: SEROQUEL 300 MG PO SCH (22:03)
--- NOTE | 2020-12-24 07:15 | NUR ---
MS/RN CLOSING NOTE PATIENT CURRENTLY RESTING IN BED. ALERT AND ORIENTED X 4. ABLE TO MAKE NEEDS KNOWN. NO COMPLAINTS OF PAIN AT THIS TIME. CONTINUES ON REGULAR DIET. CALL LIGHT WITHIN REACH. ASPIRATION, FALL AND SAFETY PRECAUTIONS MAINTAINED. WILL ENDORSE PLAN OF CARE TO ONCOMING SHIFT.
--- NOTE | 2020-12-24 07:37 | NUR ---
MS RN OPENING NOTES RECEIVED PATIENT AWAKE IN BED IN NO ACUTE SIGNS OF DISTRESS. A/O X 4. ABLE TO MAKE NEEDS KNOWN, DENIES PAIN OR ANY DISCOMFORTS AT THIS TIME. SAFETY MEASURES IN PLACE: BED IN LOWEST LOCKED POSITION WITH SR UP X2. CALL LIGHT WITHIN REACH. WILL CONTINUE TO MONITOR.
[2020-12-24 08:00] VITALS: BP 115/79
[2020-12-24] MEDS: HYDROCHLOROTHIAZIDE 25 MG TABLET PO SCH (09:11)
[2020-12-24] MEDS: AMLODIPINE BESYLATE 5 MG TABLET PO SCH (09:11)
--- NOTE | 2020-12-24 10:03 | NUR ---
RN DISCHARGED NOTES PATIENT STABLE FOR DISCHARGE PER DR AC. PT IS A/O X4. ABLE TO MAKE NEEDS KNOWN. AMBULATORY WITH STEADY GAIT. ALL BELONGINGS ACCOUNTED FOR AND SIGNED FORM. NO IV ACCESS OR SKIN ISSUES NOTED. NAME ARMBAND REMOVED. HEALTH TEACHINGS AND DISCHARGED INSTRUCTIONS GIVEN TO PT AND VERBALIZED UNDERSTANDING. PT LEFT UNIT 0950 AMBULATORY AND WAS MET BY DR AC'S STAFF LALY AT THE [facility] TO TAKE PT TO DR AC OFFICE.
[2020-12-29] MEDS ORDERED: LORAZEPAM 1 MG TABLET FOR AGITATION PO PRN (12:00)
[2021-01-05] MEDS ORDERED: LORAZEPAM 1 MG TABLET FOR AGITATION PO PRN (12:00)
[2021-01-12] MEDS ORDERED: LORAZEPAM 1 MG TABLET FOR AGITATION PO PRN (12:00)
[2021-01-19] MEDS ORDERED: LORAZEPAM 1 MG TABLET PO PRN (12:00)
== END 2020-12-24 09:45 | disposition home or self-care (01) | DRG 951 ==
LOC: MED 13:11
PROVIDERS: ADMIT Psychiatry & Neurology Psychiatry; ATTEND Psychiatry & Neurology Psychiatry
DX: Z00.6 Encounter for examination for normal comparison and control in clinical research program (principal); F20.0 Paranoid schizophrenia; I10 Essential (primary) hypertension; Z79.899 Other long term (current) drug therapy; Z90.710 Acquired absence of both cervix and uterus; G47.00 Insomnia, unspecified; F15.21 Other stimulant dependence, in remission; F10.21 Alcohol dependence, in remission
CPT/HCPCS: 87081-TC; G0378

== ENCOUNTER 2021-11-03 08:45 | Inpatient (IN) | payer OTHER ==
[~2021-11-03] VITALS: Ht 170.2 cm; Wt 102.1 kg
[2021-11-03] MEDS ORDERED: LORAZEPAM 1 MG TABLET FOR AGITATION/ANXIETY PO PRN (14:30)
[2021-11-03] MEDS ORDERED: ACETAMINOPHEN ES 500 MG TABLET PO PRN (14:30)
[2021-11-03] MEDS ORDERED: MAGNESIUM HYDROXIDE 30 ML UDC PO PRN (14:30)
[2021-11-03] MEDS ORDERED: ZOLPIDEM TARTRATE 10 MG TABLET PO PRN (14:30)
[2021-11-03] MEDS ORDERED: IBUPROFEN 200 MG TABLET PO PRN (14:30)
[2021-11-03] MEDS ORDERED: HCTZ 25 MG PO SCH ×2 (15:00)
[2021-11-03 15:42] VITALS: BP 98/64
[2021-11-03 16:15] VITALS: BP 98/64
--- NOTE | 2021-11-03 16:21 | NUR ---
Admitted a 50 years old female. Alert and oriented x3. Admitted for clinical trial @ 1430. Pt. is under the services of Dr. Sales. Pt. arrived to the unit, ambulatory and escorted by Dr. Sales's staff. Bed locked. bed on lowest position. bed alarm on. side rails up x2. Pt. denies suicidal and homicidal ideation at this time. Pt is calm and cooperative upon admission. V/S taken. All belongings in posession of patient. Pt. signed the admissions papers. Pt refused skin assessment. Pt refused face photograph. Pt. is hearing random voices. No visual hallucinations. Pt. is sleepy. Needs attended and will continue to monitor Q15 minutes for safety, comfort and behavior.
[2021-11-03 19:47] VITALS: BP 110/73
--- NOTE | 2021-11-03 20:00 | NUR ---
GPS/HEALTH AID NOTES: PT. IN BED RESTING. NO DISTRESS OR AGITATION NOTED. QUIET AND COOPERATIVE. SAFETY ENVIRONMENT OBSERVED AT ALL TIMES. WILL CONTINUE TO MONITOR Q 15 MIN FOR SAFETY AND BEHAVIOR.
[2021-11-03] MEDS ORDERED: SEROQUEL 300 MG PO ONE (22:00)
--- NOTE | 2021-11-04 07:10 | NUR ---
RN-NOTES RECEIVED PATIENT LYING IN BED AWAKE,ALERT X4 ,NO ACUTE DISTRESS NOTED.
[2021-11-04] MEDS: HCTZ 25 MG PO SCH (09:00)
[2021-11-04] MEDS: AMLODIPINE 5 MG PO SCH (09:00)
--- NOTE | 2021-11-04 09:22 | NUR ---
RN-NOTES PATIENT BP OF 103/73,P 81,BP MEDICATIONS WAS HELD . DR. AC MADE AWARE. PATIENT LEFT THE UNIT AROUND 0915 CHEMISTRY RESEARCH ASSISTANT BY DR. AC 'S OFFICE STAFF. PATIENT LEFT THE UNIT IN STABLE CONDITION A/O X4 AMBULATORY STEADY GAIT.
[2021-11-04 15:50] VITALS: BP 107/68
--- NOTE | 2021-11-04 19:30 | NUR ---
GPS RN NOTE, RECEIVED PATIENT AWAKE AND IN BED, NO S/S OR COMPLAINTS OF PAIN AT THIS TIME. PATIENT IS DISPLAYING NO S/S OF APPARENT DISTRESS AT THIS TIME. PATIENT BREATHING IS UNLABORED WITH EQUAL RISE AND FALL OF THE CHEST. PATIENT IS ALERT AND ORIENTED X 3 ON ROOM AIR WITH A SPO2 96%. PATIENT IS COMPLIANT WITH MEDICATIONS, CALM, POLITE, MAKES NEEDS KNOWN, AND COOPERATIVE. PATIENT DENIES SUICIDAL AND HOMICIDAL IDEATIONS AT THIS TIME. PATIENT ASSISTED WITH TURNING AND REPOSITIONING Q2HR AND PRN FOR COMFORT AND CIRCULATION. PATIENT HAS NO NEEDS AT THIS TIME. PATIENT EDUCATED ON THE USE OF THE CALL BUSBY. PATIENT BED SIDE RAILS UP X 2 FOR SAFETY. PATIENT BED IS LOCKED, LOW, WITH BED ALARM ON. WILL CONTINUE TO MONITOR THIS PATIENT Q15 MINUTES WITH THE HELP OF STAFF TO MAINTAIN SAFETY.
[2021-11-04 20:00] VITALS: BP 121/69
[2021-11-05 08:00] VITALS: BP 112/75
[2021-11-05] MEDS: AMLODIPINE 5 MG PO SCH (08:03)
[2021-11-05] MEDS: HCTZ 25 MG PO SCH (08:03)
--- NOTE | 2021-11-05 10:00 | NUR ---
RN Notes: Received pt. awake in bed, responsive to staffs, quiet, no distress and no agitation noted. Ate 100% for breakfast, complaint on meds. Encouraged to verbalize feelings and motivated to attend group activity. Needs attended and will continue to monitor for safety.
[2021-11-05 16:00] VITALS: BP 116/75
--- NOTE | 2021-11-05 19:30 | NUR ---
GPS RN NOTE, RECEIVED PATIENT AWAKE AND IN BED, NO S/S OR COMPLAINTS OF PAIN AT THIS TIME. PATIENT IS DISPLAYING NO S/S OF APPARENT DISTRESS AT THIS TIME. PATIENT BREATHING IS UNLABORED WITH EQUAL RISE AND FALL OF THE CHEST. PATIENT IS ALERT AND ORIENTED X 3 ON ROOM AIR WITH A SPO2 98%. PATIENT IS COMPLIANT WITH MEDICATIONS, CALM, POLITE, MAKES NEEDS KNOWN, AND COOPERATIVE. PATIENT DENIES SUICIDAL AND HOMICIDAL IDEATIONS AT THIS TIME. PATIENT ASSISTED WITH TURNING AND REPOSITIONING Q2HR AND PRN FOR COMFORT AND CIRCULATION. PATIENT HAS NO NEEDS AT THIS TIME. PATIENT EDUCATED ON THE USE OF THE CALL BUSBY. PATIENT BED SIDE RAILS UP X 2 FOR SAFETY. PATIENT BED IS LOCKED, LOW, WITH BED ALARM ON. WILL CONTINUE TO MONITOR THIS PATIENT Q15 MINUTES WITH THE HELP OF STAFF TO MAINTAIN SAFETY.
[2021-11-05 20:00] VITALS: BP 119/87
[2021-11-06 08:00] VITALS: BP 105/72
[2021-11-06] MEDS: AMLODIPINE 5 MG PO SCH (08:35)
[2021-11-06] MEDS: HCTZ 25 MG PO SCH (08:35)
--- NOTE | 2021-11-06 10:25 | NUR ---
RN Notes: Received pt. awake in bed, responsive to staffs, quiet, no distress and no agitation noted. Refused to eat breakfast, meds not given for a low BP. Encouraged to verbalize feelings and motivated to attend group activity. Needs attended and will continue to monitor for safety.
[2021-11-06 16:00] VITALS: BP 114/79
[2021-11-06 20:00] VITALS: BP 120/78
[2021-11-07 08:00] VITALS: BP 126/78
--- NOTE | 2021-11-07 09:00 | NUR ---
Patient alert ,verbally responsive ,isolative and withdrawn .Patient stated "I hear voices telling me different things" .Patient stay in her room all day .Encourage patient to verbalize feelings , redirect as needed.
[2021-11-07] MEDS: HCTZ 25 MG PO SCH (09:26)
[2021-11-07] MEDS: AMLODIPINE 5 MG PO SCH (09:27)
--- NOTE | 2021-11-07 13:00 | NUR ---
Patient remains isolative and withdrawn .Mood depressed ,flat affect Patient stay in her room .Continue to monitor for safety q15 minutes encourage patient to verbalize feelings and thoughts ,redirect as needed.
[2021-11-07 18:00] VITALS: BP 128/76
[2021-11-07 20:00] VITALS: BP 125/75
--- NOTE | 2021-11-07 20:31 | NUR ---
GPS RN NOTE: PATIENT RESTING IN HER BED. SLEEPING INTERMITTENTLY, CALM, COOPERATIVE, ISOLATIVE, WITHDRAWN,GUARDED, BUT REDIRECTABLE. NO C/O PAIN VERBALIZED. NO ACUTE DISTRESS NOTED. PATIENT IS AMBULATORY/STEADY. MED COMPLAINT. PATIENT IS ABLE TO MAKE HIS NEEDS KNOWN. WILL CONTINUE TO MONITOR THE PATIENT Q 15 MIN FOR SAFETY AND BEHAVIOR.
--- NOTE | 2021-11-08 06:08 | NUR ---
GPS RN NOTE: PATIENT RESTING WELL, CALM, COOPERATIVE, THROUGH OUT SHIFT.NO BEHAVIOR PROBLEM NOTED NO ACUTE DISTRESS NOTED. WILL CONTINUE TO MONITOR THE PATIENT Q 15 MIN FOR SAFETY AND BEHAVIOR.
[2021-11-08 08:00] VITALS: BP 118/76
--- NOTE | 2021-11-08 09:00 | NUR ---
Patient alert ,mood depressed .Patient stated "I still hear voices talking to me". .Patient isolative and withdrawn refused to attend groups Continue to monitor for safety q15 minutes ,encourage patient to verbalize feelings and thoughts ,redirect as needed.
[2021-11-08] MEDS: AMLODIPINE 5 MG PO SCH (09:38)
[2021-11-08] MEDS: HCTZ 25 MG PO SCH (09:39)
--- NOTE | 2021-11-08 13:00 | NUR ---
Patient remains isolative and withdrawn .Flat affect ,labile ,mood depressed. Patient stay in her room .Continue to monitor for safety q15 minutes .Encourage patient to verbalize feelings and thoughts ,redirect as needed.
[2021-11-08 16:00] VITALS: BP 110/77
[2021-11-08 19:48] VITALS: BP 113/75
--- NOTE | 2021-11-08 19:59 | NUR ---
GPS RN OPENING NOTES: RECEIVED PATIENT IN BED, AWAKE, A & O X 3, APPROPRIATE AFFECT, CALM, COOPERATIVE, PASSIVE. DENIES SI, HI, A/V HALLUCINATIONS. DENIES PAIN AT THIS TIME. NO S/S OF DISTRESS NOTED. RESPIRATION EVEN AND UNLABORED WITH EQUAL RISE AND FALL OF THE CHEST, ON ROOM AIR. PATIENT IS ABLE TO MAKE HIS NEEDS KNOWN. OFFERED FLUID AND SNACKS TOLERATED. BED IN LOW LOCKED POSITION, SIDE RAILS UP X2 FOR SAFETY. WILL CONTINUE TO MONITOR Q15 MIN FOR SAFETY, MOOD AND BEHAVIOR.
[2021-11-09 08:00] VITALS: BP 111/77
--- NOTE | 2021-11-09 09:00 | NUR ---
Patient alert ,isolative and withdrawn.Patient isolative and withdrawn patient still hearing voices .refused to attend groups Continue to monitor for safety q15 minutes encourage patient to verbalize feelings and thoughts, ,redirect as needed.
[2021-11-09] MEDS: AMLODIPINE 5 MG PO SCH (09:06)
[2021-11-09] MEDS: HCTZ 25 MG PO SCH (09:06)
--- NOTE | 2021-11-09 13:00 | NUR ---
Patient remains isolative and withdrawn .Mood depressed. Patient stay in her room .Continue to monitor for safety q15 minutes Encourage patient to verbalize feelings and thoughts ,redirect as needed.
[2021-11-09 16:00] VITALS: BP 130/85
--- NOTE | 2021-11-09 19:55 | NUR ---
GPS RN OPENING NOTES: RECEIVED PATIENT IN BED, AWAKE, A/O X3, APPEARS DEPRESSED, ISOLATIVE, PASSIVE, GUARDED, WITHDRAWN, COOPERATIVE. DENIES SI, HI, A/V HALLUCINATIONS. DENIES PAIN AT THIS TIME. NO S/S OF DISTRESS NOTED. RESPIRATION EVEN AND UNLABORED WITH EQUAL RISE AND FALL OF THE CHEST, ON ROOM AIR. PATIENT IS ABLE TO MAKE HIS NEEDS KNOWN. OFFERED FLUID AND SNACKS TOLERATED. BED IN LOW LOCKED POSITION, SIDE RAILS UP X2 FOR SAFETY. WILL CONTINUE TO MONITOR Q15 MIN FOR SAFETY, MOOD AND BEHAVIOR.
[2021-11-09 20:00] VITALS: BP 121/83
--- NOTE | 2021-11-10 06:36 | NUR ---
GPS RN CLOSING NOTES: PATIENT IS CURRENTLY SLEEPING. PATIENT SLEPT 9HR THIS SHIFT. NO BEHAVIORAL ISSUES THIS SHIFT. NO S/S OF DISTRESS. RESPIRATION EVEN AND UNLABORED WITH EQUAL RISE AND FALL OF THE CHEST, ON ROOM AIR. NO C/O PAIN THIS SHIFT. ALL PATIENT CARE NEEDS HAVE BEEN MET ANTICIPATED. WILL ENDORSE TO AM SHIFT.
[2021-11-10 08:00] VITALS: BP 134/68
[2021-11-10] MEDS: AMLODIPINE 5 MG PO SCH (08:11)
[2021-11-10] MEDS: HCTZ 25 MG PO SCH (08:11)
--- NOTE | 2021-11-10 13:38 | NUR ---
RN-CO: Patient remains isolative and withdrawn .Mood is labile ,blunted affect Patient stay in her room .Continue to monitor for saftey q15 minutes encourage patient to verbalize feelings and thoughts ,redirect as needed. Patient stated that she still hears voices and has visual hallucinations.
--- NOTE | 2021-11-10 13:53 | NUR ---
RN-CO: Patient was walking back and forth in the hallway. Redirectable, quiet, watches tv once in a while. He denies pain and discomforts. He stated he still has auditory hallucinations.
[2021-11-10 16:00] VITALS: BP 129/85
--- NOTE | 2021-11-10 19:30 | NUR ---
GPS RN NOTES RECEIVED PATIENT IN BED AWAKE, ALERT AND ORIENTED X3, NO ACUTE RESPIRATORY DISTRESS NOTED. PATIENT REMAINS ISOLATIVE, WITHDRAWN, LABILE, BLUNTED AFFECT. NO VERBALIZATION OF THOUGHTS OR FEELINGS. ENCOURAGED PATIENT TO ATTEND IN GROUP ACTIVITIES. SAFETY PRECAUTIONS MAINTAINED. PATIENT STATES SHE STILL HEARING VOICES, TELLING HER WHERE ARE THEY AND DEVILS ARE TALKING. PATIENT STATES SHE IS ALSO SEEING THINGS LIKE BAD SPIRITS AND PEOPLE IN THE HOSPITAL. REORIENTATION PROVIDED. WILL CONTINUE TO MONITOR Q15MIN ROUNDS FOR SAFETY AND BEHAVIOR.
[2021-11-10 20:00] VITALS: BP 126/76
[2021-11-11 08:00] VITALS: BP 114/67
[2021-11-11] MEDS: AMLODIPINE 5 MG PO SCH (08:03)
[2021-11-11] MEDS: HCTZ 25 MG PO SCH (08:05)
--- NOTE | 2021-11-11 09:10 | NUR ---
RN-CO: RECEIVED PATIENT AWAKE, DENIED PAIN AND DISCOMFORTS. SHE IS FOCUS ON SELFCARE. HAS VISUAL HALLUCINATIONS LIKE " I AM SEEING PEOPLE." AND UDITORY HALLUCINATIONS LIKE, " THE DEVILS ARE TALKING TO ME." SHE DENIED HOMICIDAL IDEATIONS.SHE WILL GO TO DR AC'S OFFICE THIS MORNING. MD STAFF PICKED HER UP FROM THE UNIT.
[2021-11-11] MEDS ORDERED: ZOLPIDEM TARTRATE 10 MG TABLET PO PRN (13:00)
[2021-11-11 16:09] VITALS: BP 125/68
--- NOTE | 2021-11-11 19:30 | NUR ---
GPS RN NOTES: RECEIVED PATIENT IN BED AWAKE, ALERT AND ORIENTED X3, NO ACUTE DISTRESS NOTED. PATIENT REMAINS ISOLATIVE, WITHDRAWN, LABILE, BLUNTED AFFECT. NO VERBALIZATION OF THOUGHTS OR FEELINGS. ENCOURAGED PATIENT TO ATTEND IN GROUP ACTIVITIES. SAFETY PRECAUTIONS MAINTAINED. PATIENT HAVING HALLUCINATIONS STILL HEARING VOICES TELLING HER WHERE ARE THEY AND DEVILS ARE TALKING TO ME. PATIENT HAVING VISUAL HALLUCINATION, SEEING THINGS LIKE BAD SPIRITS, DEMONS AND PEOPLE ON THE WALL. REORIENTATION PROVIDED. SAFETY PRECAUTIONS MAINTAINED. WILL CONTINUE TO MONITOR Q15MIN ROUNDS FOR SAFETY AND BEHAVIOR.
[2021-11-11 20:00] VITALS: BP 112/80
[2021-11-12 08:00] VITALS: BP 105/61
[2021-11-12] MEDS: HCTZ 25 MG PO SCH (08:08)
[2021-11-12] MEDS: AMLODIPINE 5 MG PO SCH (08:08)
--- NOTE | 2021-11-12 08:08 | NUR ---
Amlodipine and HCTZ meds not given for a low BP. BP 105/[address] 72[address]
[2021-11-12] MEDS: INVEST MED Kar XT OR PLACEBO 50/20 MG PO SCH ×2 (10:01→21:06)
--- NOTE | 2021-11-12 10:15 | NUR ---
RN Notes: Received pt. awake in bed, responsive to staffs, no distress and no agitation noted. Pt. ate 100% for breakfast, Amlodipine and HCTZ meds not given for a low BP. BP 105/61 and OH 72. Pt. is compliant on the Investigational meds. Encouraged to verbalize feelings and motivated to take shower. Needs attended and will continue to monitor for safety.
--- NOTE | 2021-11-12 10:28 | NUR ---
Pt. went to the doctor's office and being picked up by the staff. Left ambulatory and on stable condition.
--- NOTE | 2021-11-12 10:56 | NUR ---
Pt. is back from the doctor's office and escorted by staff.
[2021-11-12 16:00] VITALS: BP 119/85
--- NOTE | 2021-11-12 19:30 | NUR ---
GPS RN NOTE, RECEIVED PATIENT AWAKE AND IN BED, NO S/S OR COMPLAINTS OF PAIN AT THIS TIME. PATIENT IS DISPLAYING NO S/S OF APPARENT DISTRESS AT THIS TIME. PATIENT BREATHING IS UNLABORED WITH EQUAL RISE AND FALL OF THE CHEST. PATIENT IS ALERT AND ORIENTED X 3 ON ROOM AIR WITH A SPO2 99%. PATIENT IS COMPLIANT WITH MEDICATIONS, CALM, POLITE, MAKES NEEDS KNOWN, AND COOPERATIVE. PATIENT DENIES SUICIDAL AND HOMICIDAL IDEATIONS AT THIS TIME. PATIENT ASSISTED WITH TURNING AND REPOSITIONING Q2HR AND PRN FOR COMFORT AND CIRCULATION. PATIENT HAS NO NEEDS AT THIS TIME. PATIENT EDUCATED ON THE USE OF THE CALL BUSBY. PATIENT BED SIDE RAILS UP X 2 FOR SAFETY. PATIENT BED IS LOCKED, LOW, WITH BED ALARM ON. WILL CONTINUE TO MONITOR THIS PATIENT Q15 MINUTES WITH THE HELP OF STAFF TO MAINTAIN SAFETY.
[2021-11-12 20:00] VITALS: BP 119/85
[2021-11-13 08:00] VITALS: BP 116/86
[2021-11-13] MEDS: AMLODIPINE 5 MG PO SCH (08:01)
[2021-11-13] MEDS: HCTZ 25 MG PO SCH (08:02)
--- NOTE | 2021-11-13 09:35 | NUR ---
RN Notes: Received pt. asleep in bed, breathing is even and unlabored. Ate 100% for breakfast and compliant on meds. Encouraged to verbalize feelings and motivated to socialize with peers. Needs attended, no distress and no agitation noted. Will continue to monitor for safety.
[2021-11-13] MEDS: INVEST MED Kar XT OR PLACEBO 50/20 MG PO SCH ×2 (10:19→21:39)
[2021-11-13 16:00] VITALS: BP 138/93
--- NOTE | 2021-11-13 19:20 | NUR ---
RN NOTES: PATIENT RESTING IN BED AWAKE, ALERT AND ORIENTED X3, NO ACUTE DISTRESS NOTED. PATIENT REMAINS ISOLATIVE, WITHDRAWN, LABILE, BLUNTED AFFECT. NO VERBALIZATION OF THOUGHTS OR FEELINGS. ENCOURAGED PATIENT TO ATTEND IN GROUP ACTIVITIES. SAFETY PRECAUTIONS MAINTAINED. PATIENT HAVING HALLUCINATIONS STILL HEARING VOICES TELLING HER WHERE ARE THEY AND DEVILS ARE , SEEING THINGS LIKE BAD SPIRITS, REORIENTATION PROVIDED. SAFETY PRECAUTIONS MAINTAINED. WILL CONTINUE TO MONITOR Q15 MIN FOR SAFETY AND BEHAVIOR.
[2021-11-13 19:49] VITALS: BP 123/83
--- NOTE | 2021-11-14 06:34 | NUR ---
RN NOTES: PATIENT IS CURRENTLY SLEEPING. PATIENT SLEPT 8HR THIS SHIFT. NO BEHAVIORAL ISSUES THIS SHIFT NOTED. NO S/S OF DISTRESS. ALL PATIENT CARE NEEDS HAVE BEEN MET ANTICIPATED. WILL ENDORSE TO AM SHIFT.
[2021-11-14 08:00] VITALS: BP 116/83
[2021-11-14] MEDS: AMLODIPINE 5 MG PO SCH (08:06)
[2021-11-14] MEDS: HCTZ 25 MG PO SCH (08:06)
[2021-11-14] MEDS: INVEST MED Kar XT OR PLACEBO 50/20 MG PO SCH ×2 (09:49→21:27)
[2021-11-14] MEDS: LORAZEPAM 1 MG TABLET FOR AGITATION/ANXIETY PO PRN (11:35)
--- NOTE | 2021-11-14 11:36 | NUR ---
RN-CO: ATIVAN WAS GIVEN FOR C/O ANXIETY. PT REMAINS COOPERATIVE TO CARE. SHE STATED THAT SHE HAS A LITTLE "DISCOMFORTS" BEC SHE TOOK 2 CUPS OF REGULAR COFFEE. I WILL CONTINUE TO MONITOR.
[2021-11-14] MEDS: MAG HYDROX/AL HYDROX/SIMETH 30 ML UDC PO PRN (14:43)
--- NOTE | 2021-11-14 14:43 | NUR ---
RN-CO: MAALOX GIVEN FOR C/O HYPERACIDITY.
[2021-11-14 16:00] VITALS: BP 120/85
--- NOTE | 2021-11-14 19:55 | NUR ---
GPS RN OPENING NOTES: RECEIVED PATIENT IN BED, AWAKE, A/O X3, ISOLATIVE PASSIVE, GUARDED, COOPERATIVE. DENIES SI, HI, A/V HALLUCINATIONS. DENIES PAIN AT THIS TIME. NO S/S OF DISTRESS NOTED. RESPIRATION EVEN AND UNLABORED WITH EQUAL RISE AND FALL OF THE CHEST, ON ROOM AIR. PATIENT IS ABLE TO MAKE HIS NEEDS KNOWN. OFFERED FLUID AND SNACKS TOLERATED. BED IN LOW LOCKED POSITION, SIDE RAILS UP X2 FOR SAFETY. WILL CONTINUE TO MONITOR Q15 MIN FOR SAFETY, MOOD AND BEHAVIOR.
[2021-11-14 22:14] VITALS: BP 110/83
--- NOTE | 2021-11-15 06:33 | NUR ---
GPS RN CLOSING NOTES: PATIENT IS CURRENTLY SLEEPING INTERMITTENTLY. PATIENT SLEPT 8HR THIS SHIFT. WEEKLY SKIN ASSESSMENT DONE/SKIN INTACT. NO BEHAVIORAL ISSUES THIS SHIFT. NO S/S OF DISTRESS. RESPIRATION EVEN AND UNLABORED WITH EQUAL RISE AND FALL OF THE CHEST, ON ROOM AIR. NO C/O PAIN THIS SHIFT. ALL PATIENT CARE NEEDS HAVE BEEN MET ANTICIPATED. WILL ENDORSE TO AM SHIFT.
[2021-11-15 08:00] VITALS: BP 132/68
[2021-11-15] MEDS: AMLODIPINE 5 MG PO SCH (09:15)
[2021-11-15] MEDS: HCTZ 25 MG PO SCH (09:15)
[2021-11-15] MEDS: INVEST MED Kar XT OR PLACEBO 50/20 MG PO SCH ×2 (10:06→22:43)
[2021-11-15 16:00] VITALS: BP 111/75
--- NOTE | 2021-11-15 19:54 | NUR ---
GPS RN OPENING NOTES: RECEIVED PATIENT SITTING IN BED, AWAKE, A/O X3, CALM AND COOPERATIVE, PASSIVE, ISOLATIVE, GUARDED. NOT INTERACTING WITH PEERS. DENIES SI, HI, A/V HALLUCINATIONS. DENIES PAIN AT THIS TIME. NO S/S OF DISTRESS NOTED. RESPIRATION EVEN AND UNLABORED WITH EQUAL RISE AND FALL OF THE CHEST, ON ROOM AIR. PATIENT IS ABLE TO MAKE HIS NEEDS KNOWN. BED IN LOW LOCKED POSITION, SIDE RAILS UP X2 FOR SAFETY. WILL CONTINUE TO MONITOR Q15 MIN FOR SAFETY, MOOD AND BEHAVIOR.
[2021-11-15 23:09] VITALS: BP 114/72
--- NOTE | 2021-11-16 06:55 | NUR ---
GPS RN CLOSING NOTES: PATIENT IS CURRENTLY SLEEPING. PATIENT SLEPT 7HR THIS SHIFT. NO BEHAVIORAL ISSUES THIS SHIFT. NO S/S OF DISTRESS. RESPIRATION EVEN AND UNLABORED WITH EQUAL RISE AND FALL OF THE CHEST, ON ROOM AIR. NO C/O PAIN THIS SHIFT. ALL PATIENT CARE NEEDS HAVE BEEN MET ANTICIPATED. WILL ENDORSE TO AM SHIFT.
[2021-11-16] MEDS: HCTZ 25 MG PO SCH (08:30)
[2021-11-16] MEDS: AMLODIPINE 5 MG PO SCH (08:30)
--- NOTE | 2021-11-16 09:00 | NUR ---
Patient alert ,verbally responsive ,poor insight ,poor judgment ,easily irritable and anxious ,stay in her room all day ,preoccupied with her own thoughts ,encourage patient to verbalize feelings and thoughts redirect as needed ,encourage patient to attend groups and interact with peers, redirect as needed .
[2021-11-16] MEDS: INVEST MED Kar XT OR PLACEBO 50/20 MG PO SCH ×2 (09:19→21:10)
--- NOTE | 2021-11-16 19:59 | NUR ---
GPS RN OPENING NOTES: RECEIVED PATIENT IN BED, AWAKE, APPROPRIATE AFFECT, PASSIVE, GUARDED, ISOLATIVE, COOPERATIVE. DENIES SI, HI, A/V HALLUCINATIONS. DENIES PAIN AT THIS TIME. NO S/S OF DISTRESS NOTED. RESPIRATION EVEN AND UNLABORED WITH EQUAL RISE AND FALL OF THE CHEST, ON ROOM AIR. OFFERED FLUID AND SNACKS TOLERATED. BED IN LOW LOCKED POSITION, SIDE RAILS UP X2 FOR SAFETY. WILL CONTINUE TO MONITOR Q15 MIN FOR SAFETY, MOOD AND BEHAVIOR.
[2021-11-16 20:00] VITALS: BP 113/71
--- NOTE | 2021-11-17 06:37 | NUR ---
GPS RN CLOSING NOTES: PATIENT IS CURRENTLY SLEEPING. PATIENT SLEPT 8HR THIS SHIFT. NO BEHAVIORAL ISSUES THIS SHIFT. NO S/S OF DISTRESS. RESPIRATION EVEN AND UNLABORED WITH EQUAL RISE AND FALL OF THE CHEST, ON ROOM AIR. NO C/O PAIN THIS SHIFT. ALL PATIENT CARE NEEDS HAVE BEEN MET ANTICIPATED. WILL CONTINUE TO MONITOR AND ENDORSE TO AM SHIFT.
[2021-11-17] MEDS: AMLODIPINE 5 MG PO SCH (08:23)
[2021-11-17] MEDS: HCTZ 25 MG PO SCH (08:23)
--- NOTE | 2021-11-17 09:13 | NUR ---
RN-CO: PATIENT IS COOPERATIVE TO CARE. SHE DENIES ADVERSE REACTIONS FROM THE INVESTIGATIONAL MEDICINE. SHE IS GUARDED AND ISOLATIVE. SHE SAID THAT SOMETIMES SHE HAS AH.I WILL CONTINUE TO MONITOR AND ENCOURAGE TO VENTILATE FEELINGS AND CONCERN.
[2021-11-17] MEDS: INVEST MED Kar XT OR PLACEBO 50/20 MG PO SCH ×2 (09:51→21:55)
[2021-11-17] MEDS: LORAZEPAM 1 MG TABLET FOR AGITATION/ANXIETY PO PRN (15:42)
--- NOTE | 2021-11-17 15:43 | NUR ---
RN-CO: ATIVAN 1 MG GIEN FOR C/O ANXIETY.
--- NOTE | 2021-11-17 19:45 | NUR ---
RN NOTES: PATIENT RESTING IN HER ROOM, AWAKE, ALERT, ISOLATIVE, GUARDED, COOPERATIVE AT THIS TIME. ENCOURAGED TO VERBALIZE FEELINGS. DENIES SI, HI, A/V HALLUCINATIONS. NO S/S OF DISTRESS NOTED. WILL CONTINUE TO MONITOR Q15 MIN FOR SAFETY AND BEHAVIOR.
[2021-11-17 20:00] VITALS: BP 124/74
--- NOTE | 2021-11-18 07:24 | NUR ---
RN NOTE COVID SPECIMEN DROPPED OFF AT THE LAB.
[2021-11-18 08:00] VITALS: BP 139/80
[2021-11-18] MEDS: AMLODIPINE 5 MG PO SCH (08:01)
[2021-11-18] MEDS: HCTZ 25 MG PO SCH (08:02)
--- NOTE | 2021-11-18 09:04 | NUR ---
RN-CO: PATIENT IS AWAKE, REMAINS ISOLATIVE AND WITHDRAWN. COMPLIANT TO MEDICATIONS. SHE STATED THAT SHE IS HAVING EXCESSIVE SWEATING WITH THE INVESTIGATIONAL MEDICATION. SHE STILL HAS AUDITORY AND VISUAL HALLUCINATIONS AND FEELING OF PARANOIA. I WILL CONTINUE TO MONITOR AND ENC HER TO VENTILATE FEELINGS AND CONCERNS.
[2021-11-18] MEDS: INVEST MED Kar XT OR PLACEBO 50/20 MG PO SCH ×2 (09:49→21:10)
[2021-11-18 16:00] VITALS: BP 124/88
--- NOTE | 2021-11-18 19:30 | NUR ---
GPS RN NOTE, RECEIVED PATIENT AWAKE AND IN BED, NO S/S OR COMPLAINTS OF PAIN AT THIS TIME. PATIENT IS DISPLAYING NO S/S OF APPARENT DISTRESS AT THIS TIME. PATIENT BREATHING IS UNLABORED WITH EQUAL RISE AND FALL OF THE CHEST. PATIENT IS ALERT AND ORIENTED X 3 ON ROOM AIR WITH A SPO2 97%. PATIENT IS COMPLIANT WITH MEDICATIONS, CALM, POLITE, MAKES NEEDS KNOWN, AND COOPERATIVE. PATIENT STATES, " I SEE SPIRITS AND I HEAR A LOT OF PEOPLE TALKING LOUD USING BAD LANGUAGE ". PATIENT DENIES SUICIDAL AND HOMICIDAL IDEATIONS AT THIS TIME. PATIENT ASSISTED WITH TURNING AND REPOSITIONING Q2HR AND PRN FOR COMFORT AND CIRCULATION. PATIENT HAS NO NEEDS AT THIS TIME. PATIENT EDUCATED ON THE USE OF THE CALL BUSBY. PATIENT BED SIDE RAILS UP X 2 FOR SAFETY. PATIENT BED IS LOCKED, LOW, WITH BED ALARM ON. WILL CONTINUE TO MONITOR THIS PATIENT Q15 MINUTES WITH THE HELP OF STAFF TO MAINTAIN SAFETY.
[2021-11-18 20:00] VITALS: BP 119/79
[2021-11-19 08:00] VITALS: BP 117/75
[2021-11-19] MEDS: AMLODIPINE 5 MG PO SCH (08:05)
[2021-11-19] MEDS: HCTZ 25 MG PO SCH (08:06)
--- NOTE | 2021-11-19 09:40 | NUR ---
RN Notes: Received pt. awake in bed, responsive to staffs, no distress and no agitation noted. ate 100% for breakfast, compliant on meds. Encouraged to verbalize feelings and motivated to attend group activity. Needs attended and will continue to monitor for safety.
[2021-11-19] MEDS: INVEST MED Kar XT OR PLACEBO 50/20 MG PO SCH ×2 (09:53→21:50)
[2021-11-19 16:00] VITALS: BP 126/72
--- NOTE | 2021-11-19 19:30 | NUR ---
GPS RN NOTE, RECEIVED PATIENT AWAKE AND IN BED, NO S/S OR COMPLAINTS OF PAIN AT THIS TIME. PATIENT IS DISPLAYING NO S/S OF APPARENT DISTRESS AT THIS TIME. PATIENT BREATHING IS UNLABORED WITH EQUAL RISE AND FALL OF THE CHEST. PATIENT HAS A COMPLAINT OF NAUSEA AT TIMES BE REFUSES MEDICATION AT THIS TIME. PATIENT IS ALERT AND ORIENTED X 3 ON ROOM AIR WITH A SPO2 98%. PATIENT IS COMPLIANT WITH MEDICATIONS, CALM, POLITE, MAKES NEEDS KNOWN, AND COOPERATIVE. PATIENT DENIES SUICIDAL AND HOMICIDAL IDEATIONS AT THIS TIME. PATIENT ASSISTED WITH TURNING AND REPOSITIONING Q2HR AND PRN FOR COMFORT AND CIRCULATION. PATIENT HAS NO NEEDS AT THIS TIME. PATIENT EDUCATED ON THE USE OF THE CALL BUSBY. PATIENT BED SIDE RAILS UP X 2 FOR SAFETY. PATIENT BED IS LOCKED, LOW, WITH BED ALARM ON. WILL CONTINUE TO MONITOR THIS PATIENT Q15 MINUTES WITH THE HELP OF STAFF TO MAINTAIN SAFETY.
[2021-11-19 21:09] VITALS: BP 120/66
--- NOTE | 2021-11-20 09:00 | NUR ---
Patient alert ,isolative and withdrawn, no interaction with peers refused to attend groups Continue to monitor for safety q15 minutes encourage patient to verbalize feelings and thoughts ,redirect as needed.
[2021-11-20] MEDS: INVEST MED Kar XT OR PLACEBO 50/20 MG PO SCH ×2 (09:09→21:39)
[2021-11-20] MEDS: AMLODIPINE 5 MG PO SCH (09:09)
[2021-11-20] MEDS: HCTZ 25 MG PO SCH (09:09)
[2021-11-20 20:00] VITALS: BP 113/71
[2021-11-21 08:00] VITALS: BP 123/68
[2021-11-21] MEDS: AMLODIPINE 5 MG PO SCH (08:23)
[2021-11-21] MEDS: HCTZ 25 MG PO SCH (08:24)
[2021-11-21] MEDS: INVEST MED Kar XT OR PLACEBO 50/20 MG PO SCH ×2 (09:56→21:28)
[2021-11-21 16:00] VITALS: BP 112/66
--- NOTE | 2021-11-21 19:13 | NUR ---
RNAshvinCO: PT REMAINS ISOLATIVE, WITH GOOD HYGIENE. SHE IS PLEASANT TO STAFF AND COMPLIANT WITH MEDS. SHE STATED THAT SHE IS STILL HAS AH AND DENIED ADVERSE REACTIONS FROM THE INVESTIGATIONAL MEDICATION.
--- NOTE | 2021-11-21 19:45 | NUR ---
GPS RN NOTES: RECEIVED PATIENT IN BED, AWAKE, APPROPRIATE AFFECT, PASSIVE, GUARDED, ISOLATIVE, COOPERATIVE. PER PATIENT, "I HEAR AND SEE THINGS, I DON'T THINK THE MEDICATIONS ARE HELPING". DENIES SI, HI AND PAIN AT THIS TIME. NO S/S OF DISTRESS NOTED. RESPIRATION EVEN AND UNLABORED WITH EQUAL RISE AND FALL OF THE CHEST, ON ROOM AIR. OFFERED FLUID AND SNACKS TOLERATED. BED IN LOW LOCKED POSITION, SIDE RAILS UP X2 FOR SAFETY. WILL CONTINUE TO MONITOR Q15 MIN FOR SAFETY, MOOD AND BEHAVIOR.
[2021-11-21 20:12] VITALS: BP 116/71
--- NOTE | 2021-11-22 06:57 | NUR ---
GPS RN CLOSING NOTES: PATIENT IS CURRENTLY SLEEPING. PATIENT SLEPT 8HR THIS SHIFT. NO BEHAVIORAL ISSUES THIS SHIFT. NO S/S OF DISTRESS. RESPIRATION EVEN AND UNLABORED WITH EQUAL RISE AND FALL OF THE CHEST, ON ROOM AIR. NO C/O PAIN THIS SHIFT. ALL PATIENT CARE NEEDS HAVE BEEN MET ANTICIPATED. WILL ENDORSE TO AM SHIFT.
[2021-11-22 08:00] VITALS: BP 122/83
--- NOTE | 2021-11-22 09:00 | NUR ---
Patient alert ,isolative and withdrawn, no interaction with peers refused to attend groups.Patient stated "I hear voices of different people". Continue to monitor for safety q15 minutes encourage patient to verbalize feelings and thoughts ,redirect as needed.
[2021-11-22] MEDS: AMLODIPINE 5 MG PO SCH (09:01)
[2021-11-22] MEDS: HCTZ 25 MG PO SCH (09:01)
[2021-11-22] MEDS: INVEST MED Kar XT OR PLACEBO 50/20 MG PO SCH ×2 (09:26→21:27)
--- NOTE | 2021-11-22 13:00 | NUR ---
Patient remains isolative and withdrawn .Patient labile ,mood depressed flat affect . Patient stay in her room all day .Continue to monitor for safety q15 minutes .Encourage patient to verbalize feelings and thoughts redirect as needed.
[2021-11-22 16:00] VITALS: BP 122/79
[2021-11-22] MEDS: LORAZEPAM 1 MG TABLET FOR AGITATION/ANXIETY PO PRN (19:33)
--- NOTE | 2021-11-22 19:37 | NUR ---
GPS RN OPENING NOTES: RECEIVED PATIENT IN BED, AWAKE, ANXIOUS, WITHDRAWN, ISOLATIVE, COOPERATIVE. PATIENT REQUESTED FOR ATIVAN FOR ANXIETY. ATIVAN 1MG GIVEN PO AT 1933. DENIES SI, HI AND PAIN AT THIS TIME. NO S/S OF DISTRESS NOTED. RESPIRATION EVEN AND UNLABORED WITH EQUAL RISE AND FALL OF THE CHEST, ON ROOM AIR. OFFERED FLUID AND SNACKS TOLERATED. BED IN LOW LOCKED POSITION, SIDE RAILS UP X2 FOR SAFETY. WILL CONTINUE TO MONITOR Q15 MIN FOR SAFETY, MOOD AND BEHAVIOR.
[2021-11-22 20:18] VITALS: BP 127/84
--- NOTE | 2021-11-23 06:50 | NUR ---
GPS RN CLOSING NOTES: PATIENT LAYING IN BED, AWAKE, A/O X3. PATIENT SLEPT 8HR THIS SHIFT. NO C/O PAIN THIS SHIFT. NO BEHAVIORAL ISSUES THIS SHIFT. NO S/S OF DISTRESS. RESPIRATION EVEN AND UNLABORED WITH EQUAL RISE AND FALL OF THE CHEST, ON ROOM AIR. ALL PATIENT CARE NEEDS HAVE BEEN MET ANTICIPATED. WILL CONTINUE TO MONITOR AND ENDORSE TO AM SHIFT.
--- NOTE | 2021-11-23 09:00 | NUR ---
Patient alert ,isolative and withdrawn, no interaction with peers refused to attend groups.Patient still hearing voices talking to her. Continue to monitor for safety q15 minutes encourage patient to verbalize feelings and thoughts ,redirect as needed.
[2021-11-23] MEDS: HCTZ 25 MG PO SCH (09:09)
[2021-11-23] MEDS: AMLODIPINE 5 MG PO SCH (09:10)
[2021-11-23] MEDS: INVEST MED Kar XT OR PLACEBO 50/20 MG PO SCH ×2 (09:14→21:53)
[2021-11-23] MEDS: LORAZEPAM 1 MG TABLET FOR AGITATION/ANXIETY PO PRN (12:31)
--- NOTE | 2021-11-23 12:31 | NUR ---
Patient c/o anxiety medicated with Ativan 1mg x1 now will continue to monitor .
--- NOTE | 2021-11-23 13:00 | NUR ---
Patient remains isolative and withdrawn .Patient labile ,mood depressed easily irritable and anxious .flat affect .Continue to monitor for safety q15 minutes .Encourage patient to verbalize feelings and thoughts redirect as needed.
--- NOTE | 2021-11-23 19:57 | NUR ---
GPS RN OPENING NOTES: RECEIVED PATIENT IN BED, AWAKE, ANXIOUS, WITHDRAWN, ISOLATIVE, COOPERATIVE. PER PATIENT, "THE VOICES DON'T STOP, AND THE PATIENT IN THE NEXT ROOM KEEPS YELLING WHICH MAKES IT WORSE". DENIES SI, HI AND PAIN AT THIS TIME. NO S/S OF DISTRESS NOTED. RESPIRATION EVEN AND UNLABORED WITH EQUAL RISE AND FALL OF THE CHEST, ON ROOM AIR. OFFERED FLUID AND SNACKS TOLERATED. BED IN LOW LOCKED POSITION, SIDE RAILS UP X2 FOR SAFETY. WILL CONTINUE TO MONITOR Q15 MIN FOR SAFETY, MOOD AND BEHAVIOR.
[2021-11-23 20:12] VITALS: BP 128/88
[2021-11-23] MEDS: MAG HYDROX/AL HYDROX/SIMETH 30 ML UDC PO PRN (22:31)
--- NOTE | 2021-11-23 22:34 | NUR ---
GPS RN NOTES: PATIENT C/O INDIGESTION, MAALOX 30ML/1CUP GIVEN AT 2231. WILL CONTINUE TO MONITOR.
--- NOTE | 2021-11-24 06:41 | NUR ---
GPS RN CLOSING NOTES: PATIENT SLEEPING COMFORTABLY IN BED. PATIENT SLEPT 8HR THIS SHIFT. NO C/O PAIN THIS SHIFT. NO BEHAVIORAL ISSUES THIS SHIFT. NO S/S OF DISTRESS. RESPIRATION EVEN AND UNLABORED WITH EQUAL RISE AND FALL OF THE CHEST, ON ROOM AIR. ALL PATIENT CARE NEEDS HAVE BEEN MET ANTICIPATED. WILL CONTINUE TO MONITOR AND ENDORSE TO AM SHIFT.
[2021-11-24 08:00] VITALS: BP 123/89
[2021-11-24] MEDS: HCTZ 25 MG PO SCH (08:13)
[2021-11-24] MEDS: AMLODIPINE 5 MG PO SCH (08:13)
[2021-11-24] MEDS: INVEST MED Kar XT OR PLACEBO 50/20 MG PO SCH ×2 (10:06→21:12)
--- NOTE | 2021-11-24 14:03 | NUR ---
RN-CO:PATIENT STATED THAT HER VISUAL HALLUCINATIONS ARE GETTING WORSE. SHE DENIED ANY ADVERSE SIDE EFFECT ON THE INVESTIGATIONAL MEDICATIONS ASIDE FROM EXCESSIVE SWEATING. SHE IS MOTIVATED ON SELFCARE AND COOPERATIVE TO CARE.
[2021-11-24 16:00] VITALS: BP 119/78
[2021-11-24] MEDS: LORAZEPAM 1 MG TABLET FOR AGITATION/ANXIETY PO PRN (16:32)
--- NOTE | 2021-11-24 16:32 | NUR ---
RN-CO: ATIVAN 1 MG PO GIVEN FOR C/O ANXIETY.
[2021-11-24 20:00] VITALS: BP 145/88
[2021-11-25 08:00] VITALS: BP 115/79
[2021-11-25] MEDS: AMLODIPINE 5 MG PO SCH (08:09)
[2021-11-25] MEDS: HCTZ 25 MG PO SCH (08:10)
--- NOTE | 2021-11-25 09:05 | NUR ---
Pt.went to the doctor's office and escorted by 's staff. Pt. without distress and ambulatory.
--- NOTE | 2021-11-25 09:55 | NUR ---
RN Notes: Received pt. awake on room and responsive to staffs. Pt. ate 100% for breakfast, compliant on meds. Pt. went to the doctor's office and per staff to give the Investigational meds once she is back from the office. No distress and no agitation noted. Will continue to monitor for safety.
[2021-11-25] MEDS: INVEST MED Kar XT OR PLACEBO 50/20 MG PO SCH ×2 (10:27→21:19)
--- NOTE | 2021-11-25 10:30 | NUR ---
Pt. came back from the office without distress and compliant on the investigational meds.
[2021-11-25] MEDS: LORAZEPAM 1 MG TABLET FOR AGITATION/ANXIETY PO PRN (12:53)
--- NOTE | 2021-11-25 12:53 | NUR ---
RN-CO: ATIVAN I MG GIVEN FOR C/O ANXIETY.
[2021-11-25 16:00] VITALS: BP 133/85
[2021-11-25 20:00] VITALS: BP 119/72
[2021-11-26 08:00] VITALS: BP 111/69
[2021-11-26] MEDS: AMLODIPINE 5 MG PO SCH (08:07)
[2021-11-26] MEDS: HCTZ 25 MG PO SCH (08:08)
--- NOTE | 2021-11-26 09:15 | NUR ---
RN Notes: Received pt. awake on the room and responsive to staffs. Pt. ate 100% for breakfast, compliant on meds. Pt. is quiet, stayed in her room most of the time. Needs attended.No distress and no agitation noted. Will continue to monitor for safety.
[2021-11-26] MEDS: INVEST MED Kar XT OR PLACEBO 50/20 MG PO SCH ×2 (09:59→21:20)
[2021-11-26 16:00] VITALS: BP 110/75
--- NOTE | 2021-11-26 19:30 | NUR ---
GPS RN NOTES RECEIVED PATIENT IN BED AWAKE, ALERT AND ORIENTED X3, NO S/SX OF ACUTE RESPIRATORY DISTRESS NOTED. PATIENT REMAINS ISOLATIVE, WITHDRAWN, LABILE, MED COMPLIANT AND BLUNTED AFFECT. NO VERBALIZATION OF THOUGHTS OR FEELINGS. ENCOURAGED PATIENT TO ATTEND IN GROUP ACTIVITIES. PATIENT STILL HEARING VOICES TELLING HER DEVILS ARE TALKING TO ME. PATIENT HAVING VISUAL HALLUCINATION, SEEING THINGS LIKE BAD SPIRITS, DEVILS AND PEOPLE ON THE WALL. PATIENT DENIED ANY ADVERSE SIDE EFFECT ON THE INVESTIGATIONAL MEDICATIONS ASIDE FROM EXCESSIVE SWEATING. PATIENT IS MOTIVATED ON SELF CARE. SAFETY PRECAUTIONS MAINTAINED. WILL CONTINUE TO MONITOR Q15MIN ROUNDS FOR SAFETY AND BEHAVIOR.
[2021-11-26 19:50] VITALS: BP 126/83
[2021-11-27 08:00] VITALS: BP 124/87
[2021-11-27] MEDS: HCTZ 25 MG PO SCH (08:26)
[2021-11-27] MEDS: AMLODIPINE 5 MG PO SCH (08:26)
[2021-11-27] MEDS: INVEST MED Kar XT OR PLACEBO 50/20 MG PO SCH ×2 (10:01→21:11)
[2021-11-27 16:00] VITALS: BP 100/68
[2021-11-27] MEDS: LORAZEPAM 1 MG TABLET FOR AGITATION/ANXIETY PO PRN (18:22)
--- NOTE | 2021-11-27 19:25 | NUR ---
GPS RN NOTES RECEIVED PATIENT IN BED AWAKE, ALERT AND ORIENTED X3, NO ACUTE DISTRESS NOTED. PATIENT REMAINS ISOLATIVE, WITHDRAWN, BLUNTED AFFECT, MED COMPLIANT. PATIENT IS ON INVESTIGATIONAL MEDS WITH NO ADVERSE REACTIONS NOTED. PATIENT STILL HEARING VOICES. PT STATED, "DEVILS ARE TALKING TO ME". PATIENT HAVING VISUAL HALLUCINATION SEEING THINGS LIKE BAD SPIRITS, DEVILS AND PEOPLE ON THE WALL. NO VERBALIZATION OF THOUGHTS OR FEELINGS. ENCOURAGED PATIENT TO ATTEND IN GROUP ACTIVITIES. SAFETY PRECAUTIONS MAINTAINED. WILL CONTINUE TO MONITOR Q15MIN ROUNDS FOR SAFETY AND BEHAVIOR.
[2021-11-27 19:56] VITALS: BP 119/85
[2021-11-28 08:00] VITALS: BP 103/68
[2021-11-28] MEDS: HCTZ 25 MG PO SCH (08:27)
[2021-11-28] MEDS: AMLODIPINE 5 MG PO SCH (08:27)
[2021-11-28] MEDS: INVEST MED Kar XT OR PLACEBO 50/20 MG PO SCH ×2 (10:01→21:18)
[2021-11-28 16:00] VITALS: BP 116/76
[2021-11-28 19:50] VITALS: BP 108/70
--- NOTE | 2021-11-29 09:00 | NUR ---
Patient alert ,verbally responsive ,poor insight ,poor judgment ,isolative and withdrawn, no interaction with peers ,hearing voices telling her bad things. Refused to attend groups Continue to monitor for safety q15 minutes encourage patient to verbalize feelings and thoughts ,redirect as needed.
[2021-11-29] MEDS: AMLODIPINE 5 MG PO SCH (09:11)
[2021-11-29] MEDS: INVEST MED Kar XT OR PLACEBO 50/20 MG PO SCH ×2 (09:11→21:14)
[2021-11-29] MEDS: HCTZ 25 MG PO SCH (09:11)
--- NOTE | 2021-11-29 13:00 | NUR ---
Patient remains isolative and withdrawn .Patient stay in her room all day Continue to monitor for safety q15 minutes Encourage patient to verbalize feelings and thoughts ,redirect as needed.
[2021-11-29] MEDS: LORAZEPAM 1 MG TABLET FOR AGITATION/ANXIETY PO PRN (14:31)
--- NOTE | 2021-11-29 14:32 | NUR ---
ATIVAN I MG GIVEN FOR C/O ANXIETY.
--- NOTE | 2021-11-29 19:40 | NUR ---
GPS RN OPENING NOTES: RECEIVED PATIENT IN BED AWAKE, A/O X3, PASSIVE, WITHDRAWN, ISOLATIVE, CALM AND COOPERATIVE. PER PATIENT, "THE MEDICATIONS ARE NOT WORKING, I STILL HEAR VOICES EVERY DAY. WHEN ASKED WHAT THE VOICES ARE SAYING SHE REPLIED, "NEGATIVE, ABOUT DEVILS AND DEMONS". DENIES SI, HI AND PAIN AT THIS TIME. NO S/S OF DISTRESS NOTED. RESPIRATION EVEN AND UNLABORED WITH EQUAL RISE AND FALL OF THE CHEST, ON ROOM AIR. OFFERED FLUID AND SNACKS TOLERATED. BED IN LOW LOCKED POSITION, SIDE RAILS UP X2 FOR SAFETY. WILL CONTINUE TO MONITOR Q15 MIN FOR SAFETY, MOOD AND BEHAVIOR.
[2021-11-29 19:46] VITALS: BP 121/73
[2021-11-30] MEDS: AMLODIPINE 5 MG PO SCH (08:55)
[2021-11-30] MEDS: HCTZ 25 MG PO SCH (08:55)
--- NOTE | 2021-11-30 09:00 | NUR ---
Patient alert ,verbally responsive ,poor insight ,poor judgment ,isolative and withdrawn, no interaction with peers .Patient c/o hearing noise and ringing . Refused to attend groups ,mood depressed . Continue to monitor for safety q15 minutes encourage patient to verbalize feelings and thoughts redirect as needed.
[2021-11-30] MEDS: INVEST MED Kar XT OR PLACEBO 50/20 MG PO SCH ×2 (09:47→21:37)
--- NOTE | 2021-11-30 13:00 | NUR ---
Patient remains isolative and withdrawn ,flat affect ,preoccupied with her own thoughts .Patient stay in her room all day Continue to monitor for safety q15 minutes .Encourage patient to verbalize feelings and thoughts redirect as needed.
[2021-11-30] MEDS: LORAZEPAM 1 MG TABLET FOR AGITATION/ANXIETY PO PRN (19:46)
--- NOTE | 2021-11-30 19:53 | NUR ---
GPS RN NOTES: PATIENT C/O OF ANXIETY. ATIVAN 1MG GIVEN PO AT 194. WILL CONTINUE TO MONITOR.
[2021-11-30 20:00] VITALS: BP 121/73
--- NOTE | 2021-11-30 20:10 | NUR ---
GPS RN OPENING NOTES: RECEIVED PATIENT IN BED, AWAKE, A/O X3, PASSIVE, WITHDRAWN, ISOLATIVE, CALM AND COOPERATIVE. PATIENT C/O ANXIETY, ATIVAN 1MG 1 TAB GIVEN PO AT 1946. DENIES SI, HI AND PAIN AT THIS TIME. NO S/S OF DISTRESS NOTED. RESPIRATION EVEN AND UNLABORED WITH EQUAL RISE AND FALL OF THE CHEST, ON ROOM AIR. OFFERED FLUID AND SNACKS TOLERATED. BED IN LOW LOCKED POSITION, SIDE RAILS UP X2 FOR SAFETY. WILL CONTINUE TO MONITOR Q15 MIN FOR SAFETY, MOOD AND BEHAVIOR.
[2021-11-30 20:11] VITALS: BP 121/73
[2021-12-01 08:00] VITALS: BP 122/84
[2021-12-01] MEDS: AMLODIPINE 5 MG PO SCH (08:59)
[2021-12-01] MEDS: HCTZ 25 MG PO SCH (09:00)
[2021-12-01] MEDS: INVEST MED Kar XT OR PLACEBO 50/20 MG PO SCH ×2 (09:47→21:09)
[2021-12-01 16:00] VITALS: BP 128/75
--- NOTE | 2021-12-01 17:29 | NUR ---
RN-CO: Patient remains cooperative to care. Denied adverse reaction from the investigational medicine. He is isolative and withdrawn, mostly he listens to music inside his room. He said that he still has AH/VH but it doesn't bother him. We will continue to monitor. Addendum: 12/01/21 at 1734 by WESLEY CONWAY RN RN-CO: ERROR CHARTING, THIS IS FOR ANOTHER PT.
--- NOTE | 2021-12-01 17:34 | NUR ---
RN-CO: Patient is isolative but pleasant and polite. She is motivated to self care. She stated she still has AH/VH. She denies adverse reactions from investigational medicine. She denies pain and discomforts during the shift.
--- NOTE | 2021-12-01 19:55 | NUR ---
RECEIVED PATIENT IN BED AWAKE, A/O X3, PASSIVE, ISOLATIVE, CALM AND COOPERATIVE. PATIENT INFORMED SHE'S NPO FROM 2200, NO FOOD, NO ATIVAN. PATIENT DENIES SI, HI AND PAIN AT THIS TIME. NO S/S OF DISTRESS NOTED. RESPIRATION EVEN AND UNLABORED WITH EQUAL RISE AND FALL OF THE CHEST, ON ROOM AIR. OFFERED FLUID AND SNACKS TOLERATED. BED IN LOW LOCKED POSITION, SIDE RAILS UP X2 FOR SAFETY. WILL CONTINUE TO MONITOR Q15 MIN FOR SAFETY, MOOD AND BEHAVIOR.
[2021-12-01 20:00] VITALS: BP 114/78
[2021-12-02 08:00] VITALS: BP 117/87
[2021-12-02] MEDS: HCTZ 25 MG PO SCH (08:53)
[2021-12-02] MEDS: AMLODIPINE 5 MG PO SCH (08:53)
--- NOTE | 2021-12-02 09:08 | NUR ---
RN Notes: Received pt. awake in bed, responsive to staffs, no distress and no agitation noted. Pt. on NPO and compliant on due meds. Needs attended and pt. was picked by Dr. Sales's staff. Left without distress and ambulatory.
--- NOTE | 2021-12-02 09:09 | NUR ---
Pt. was picked up Dr. Sales's staff to the office. Left without distress and ambulatory.
[2021-12-02] MEDS: INVEST MED Kar XT OR PLACEBO 50/20 MG PO SCH ×2 (10:28→21:47)
--- NOTE | 2021-12-02 10:31 | NUR ---
Pt. came from Dr. Sales's office and escorted staff. Ambulatory and without distress and Investigational meds given.
[2021-12-02] MEDS ORDERED: ZOLPIDEM TARTRATE 10 MG TABLET PO PRN (13:00)
[2021-12-02] MEDS: LORAZEPAM 1 MG TABLET FOR AGITATION/ANXIETY PO PRN ×2 (14:22→20:23)
[2021-12-02 16:00] VITALS: BP 138/79
--- NOTE | 2021-12-02 19:15 | NUR ---
GPS RN NOTES RECEIVED PATIENT IN BED AWAKE, ALERT AND ORIENTED X3, NO ACUTE DISTRESS NOTED. PATIENT REMAINS ISOLATIVE, WITHDRAWN, BLUNTED AFFECT, MEDICATION COMPLIANT. PT IS ON INVESTIGATIONAL MEDS WITH NO ADVERSE REACTIONS NOTED. PATIENT STILL HEARING VOICES. PT STATED, "DEVILS ARE TALKING TO ME". PATIENT HAVING VISUAL HALLUCINATIONS SEEING THINGS LIKE SPIRITS, DEVIL AND PEOPLE ON THE WALL. NO VERBALIZATION OF THOUGHTS OR FEELINGS. ENCOURAGED PATIENT TO ATTEND IN GROUP ACTIVITIES. WILL CONTINUE TO MONITOR Q15MIN ROUNDS FOR SAFETY AND BEHAVIOR.
[2021-12-02 20:00] VITALS: BP 110/80
--- NOTE | 2021-12-02 20:23 | NUR ---
GPS RN NOTES: ANXIETY PATIENT C/O FEELING ANXIOUS. ATIVAN 1MG PO GIVEN PRN ORDER. WILL CONTINUE TO MONITOR FOR PATIENT'S SAFETY.
[2021-12-03 08:00] VITALS: BP 114/85
[2021-12-03] MEDS: HCTZ 25 MG PO SCH (08:00)
[2021-12-03] MEDS: AMLODIPINE 5 MG PO SCH (08:01)
--- NOTE | 2021-12-03 10:00 | NUR ---
RN Notes: Received pt. awake in bed, responsive to staffs, no distress and no agitation noted. Pt. ate 25% for breakfast, compliant on meds, Encouraged to soxcialize with peers and to take shower. Needs attended and will continue to monitor for safety.
[2021-12-03] MEDS: INVEST MED Kar XT OR PLACEBO 50/20 MG PO SCH ×2 (10:02→21:10)
[2021-12-03 16:00] VITALS: BP 113/76
--- NOTE | 2021-12-03 19:40 | NUR ---
GPS RN OPENING NOTE RECEIVED PATIENT IN BED AWAKE, ALERT AND ORIENTED X3, NO ACUTE DISTRESS NOTED. PATIENT REMAINS ISOLATIVE, WITHDRAWN, BLUNTED AFFECT, MED COMPLIANT. PATIENT STILL HEARING VOICES. PT STATED, "DEVILS ARE TALKING TO ME". PATIENT HAVING VISUAL HALLUCINATION SEEING THINGS LIKE SPIRITS, ENCOURAGED PATIENT TO ATTEND IN GROUP ACTIVITIES. AMBULATORY, STEADY GAIT. ALL NEEDS MET AT THIS TIME. WILL CONTINUE TO MONITOR Q15MIN ROUNDS FOR SAFETY AND BEHAVIOR.
[2021-12-03 20:00] VITALS: BP 110/68
[2021-12-03 20:01] VITALS: BP 110/68
[2021-12-04 08:00] VITALS: BP 111/78
[2021-12-04] MEDS: HCTZ 25 MG PO SCH (09:18)
[2021-12-04] MEDS: AMLODIPINE 5 MG PO SCH (09:18)
[2021-12-04] MEDS: INVEST MED Kar XT OR PLACEBO 50/20 MG PO SCH ×2 (09:53→21:15)
[2021-12-04 16:00] VITALS: BP 110/76
--- NOTE | 2021-12-04 19:45 | NUR ---
GPS RN OPENING NOTES RECEIVED PATIENT IN BED AWAKE, ALERT AND ORIENTED X3, USING HER HEADPHONES, NO ACUTE DISTRESS NOTED. PATIENT REMAINS ISOLATIVE, WITHDRAWN, APPROPRIATE AFFECT, MED COMPLIANT. PATIENT HEARING VOICES. PT STATED, "IT'S DEMONS AND DEVILS STUFF, THAT'S WHY I HAVE MY HEADPHONES ON." ENCOURAGED PATIENT TO ATTEND IN GROUP ACTIVITIES. SAFETY MEASURES IN PLACE. WILL CONTINUE TO MONITOR Q15MIN ROUNDS FOR SAFETY AND BEHAVIOR.
[2021-12-04 20:00] VITALS: BP 109/63
--- NOTE | 2021-12-04 21:20 | NUR ---
GPS RN NOTE PATIENT REQUESTED TO TAKE HER SCHEDULED 2200 MEDICATION AT THIS TIME. PER PATIENT REQUEST SCHEDULED 220 MEDICATION ADMINISTERED. NO ACUTE CHANGES NOTED. PATIENT IS CALM, RALAXED AND COOPERATIVE. WILL CONTINUE TO MONITOR.
--- NOTE | 2021-12-05 06:48 | NUR ---
GPS RN CLOSING NOTE PATIENT SLEPT WELL AT NIGHT. PATIENT IS CALM, COOPERATIVE AND RELAXED. NO CHANGE OF CONDITION NOTED. WILL ENDORSE TO AM RN FOR CONTINUITY OF CARE.
[2021-12-05] MEDS: HCTZ 25 MG PO SCH (07:59)
[2021-12-05] MEDS: AMLODIPINE 5 MG PO SCH (07:59)
[2021-12-05 08:00] VITALS: BP 130/91
[2021-12-05] MEDS: INVEST MED Kar XT OR PLACEBO 50/20 MG PO SCH ×2 (10:49→21:39)
[2021-12-05 16:00] VITALS: BP 131/69
[2021-12-05 20:18] VITALS: BP 152/81
--- NOTE | 2021-12-05 20:38 | NUR ---
GPS RN OPENING NOTES: RECEIVED PATIENT IN BED AWAKE, A/O X3, PASSIVE, WITHDRAWN, ISOLATIVE, ANXIOUS, COOPERATIVE. COMPLAINING OF NOISE FROM OTHER PATIENTS, COMPLAINING OF ANXIETY BUT REFUSED ATIVAN WHEN OFFERED. ADMITS TO AUDITORY HALLUCINATIONS. EDUCATION PROVIDED. PATIENT DENIES SI, HI AND PAIN AT THIS TIME. NO S/S OF DISTRESS NOTED. RESPIRATION EVEN AND UNLABORED WITH EQUAL RISE AND FALL OF THE CHEST, ON ROOM AIR. OFFERED FLUID AND SNACKS TOLERATED. BED IN LOW LOCKED POSITION, SIDE RAILS UP X2 FOR SAFETY. WILL CONTINUE TO MONITOR Q15 MIN FOR SAFETY, MOOD AND BEHAVIOR.
--- NOTE | 2021-12-06 06:45 | NUR ---
GPS RN CLOSING NOTES: PATIENT LAYING IN BED, AWAKE, A/O X3. PATIENT SLEPT 7HR THIS SHIFT. NO C/O PAIN THIS SHIFT. NO BEHAVIORAL ISSUES THIS SHIFT. NO PRN'S THIS SHIFT. NO S/S OF DISTRESS. RESPIRATION EVEN AND UNLABORED WITH EQUAL RISE AND FALL OF THE CHEST, ON ROOM AIR. ALL PATIENT CARE NEEDS HAVE BEEN MET ANTICIPATED. WILL CONTINUE TO MONITOR AND ENDORSE TO AM SHIFT.
[2021-12-06] MEDS: INVEST MED Kar XT OR PLACEBO 50/20 MG PO SCH ×2 (09:07→22:03)
[2021-12-06] MEDS: AMLODIPINE 5 MG PO SCH (09:07)
[2021-12-06] MEDS: HCTZ 25 MG PO SCH (09:07)
[2021-12-06 20:00] VITALS: BP 111/73
--- NOTE | 2021-12-07 09:00 | NUR ---
Patient alert,verbally responsive ,disorganized thoughts ,pt c/o hearing voices, med compliant . Refused to attend groups, Continue to monitor for safety q15 minutes encourage patient to verbalize feelings and thoughts ,redirect as needed.
[2021-12-07] MEDS: AMLODIPINE 5 MG PO SCH (09:17)
[2021-12-07] MEDS: INVEST MED Kar XT OR PLACEBO 50/20 MG PO SCH ×2 (09:17→22:01)
[2021-12-07] MEDS: HCTZ 25 MG PO SCH (09:17)
--- NOTE | 2021-12-07 13:00 | NUR ---
Patient isolative and withdrawn . disorganized thoughts.Continue to monitor for safety q15 minutes Encourage patient to verbalize feelings and thoughts ,redirect as needed.
--- NOTE | 2021-12-07 13:51 | NUR ---
late entry for 12/06/21 0900 am ,Patient alert,verbally responsive ,disorganized thoughts ,isolative and withdrawn, pt still hearing voices telling her different things . Refused to attend groups, Continue to monitor for safety q15 minutes encourage patient to verbalize feelings and thoughts ,redirect as needed.
--- NOTE | 2021-12-07 13:54 | NUR ---
late entry for 12/06/21 1300 ,Patient remains isolative and withdrawn .Flat affect, disorganized thoughts.Continue to monitor for safety q15 minutes Encourage patient to verbalize feelings and thoughts ,redirect as needed.
[2021-12-07] MEDS: LORAZEPAM 1 MG TABLET FOR AGITATION/ANXIETY PO PRN (14:50)
--- NOTE | 2021-12-07 14:51 | NUR ---
Patient c/o anxiety medicated with Ativan 1mg x1 now will continue to monitor .
[2021-12-07 20:00] VITALS: BP 113/78
--- NOTE | 2021-12-07 20:39 | NUR ---
GPS RN OPENING NOTES: RECEIVED PATIENT IN BED AWAKE, A/O X3, TALKING ON PHONE. APPROPRIATE AFFECT, PASSIVE, WITHDRAWN, ISOLATIVE, COOPERATIVE. PATIENT CONTINUES TO ADMITS TO AUDITORY HALLUCINATIONS. EDUCATION PROVIDED AND PATIENT REORIENTED TO PRESENT SITUATION. PATIENT DENIES SI, HI AND PAIN AT THIS TIME. NO S/S OF DISTRESS NOTED. RESPIRATION EVEN AND UNLABORED WITH EQUAL RISE AND FALL OF THE CHEST, ON ROOM AIR. OFFERED FLUID AND SNACKS TOLERATED. BED IN LOW LOCKED POSITION, SIDE RAILS UP X2 FOR SAFETY. WILL CONTINUE TO MONITOR Q15 MIN FOR SAFETY, MOOD AND BEHAVIOR.
--- NOTE | 2021-12-08 06:58 | NUR ---
GPS RN CLOSING NOTES: PATIENT IS CURRENTLY SLEEPING COMFORTABLY IN BED. PATIENT SLEPT 8HR THIS SHIFT. NO C/O PAIN THIS SHIFT. NO BEHAVIORAL ISSUES THIS SHIFT. NO PRN'S THIS SHIFT. NO S/S OF DISTRESS. RESPIRATION EVEN AND UNLABORED WITH EQUAL RISE AND FALL OF THE CHEST, ON ROOM AIR. ALL PATIENT CARE NEEDS HAVE BEEN MET ANTICIPATED. WILL CONTINUE TO MONITOR AND ENDORSE TO AM SHIFT.
[2021-12-08 08:00] VITALS: BP 110/73
[2021-12-08] MEDS: HCTZ 25 MG PO SCH (08:38)
[2021-12-08] MEDS: AMLODIPINE 5 MG PO SCH (08:38)
--- NOTE | 2021-12-08 09:15 | NUR ---
RN-CO: PT WENT TO THE BANK.
--- NOTE | 2021-12-08 09:39 | NUR ---
RN-CO: PT IS COOPERATIVE, CALM AND PLEASANT. SHE STATED THAT HER AH/VH IS GETTING BETTER. SHE DENIED PAIN AND DISCOMFORTS. I WILL CONTINUE TO MONITOR.
[2021-12-08] MEDS: INVEST MED Kar XT OR PLACEBO 50/20 MG PO SCH ×2 (12:24→20:35)
--- NOTE | 2021-12-08 12:26 | NUR ---
RN-CO: PT IS BACK AT 12:15 PM.
[2021-12-08 16:00] VITALS: BP 121/79
[2021-12-08 20:00] VITALS: BP 110/77
[2021-12-09 08:00] VITALS: BP 105/72
[2021-12-09] MEDS: HCTZ 25 MG PO SCH (08:55)
[2021-12-09] MEDS: AMLODIPINE 5 MG PO SCH (08:55)
[2021-12-09] MEDS: INVEST MED Kar XT OR PLACEBO 50/20 MG PO SCH ×2 (10:01→21:58)
[2021-12-09 16:00] VITALS: BP 114/87
--- NOTE | 2021-12-09 18:38 | NUR ---
RN-CO: Patient had blood works done today. She remains calm and cooperative to staff. Denied adverse reaction from IP. She was seen and examined by Dr Salse today.Pt stated that the AH/ VH is still there but denied command hallucination. I will continue to monitor.
[2021-12-09 20:00] VITALS: BP 110/72
[2021-12-10 08:00] VITALS: BP 97/65
[2021-12-10] MEDS: AMLODIPINE 5 MG PO SCH (08:47)
[2021-12-10] MEDS: HCTZ 25 MG PO SCH ×2 (08:47→08:49)
--- NOTE | 2021-12-10 08:50 | NUR ---
GPS NURSE PATIENT HAS TWO HOME MEDICATIONS FOR HYPERTENSION TO BE GIVEN @ 0900 (HCTZ AND AMLODIPINE). BOTH ARE BEING HELD BECAUSE BP IS CURRENTLY 97/65. WILL CONTINUE TO MONITOR PATIENT.
[2021-12-10] MEDS: INVEST MED Kar XT OR PLACEBO 50/20 MG PO SCH ×2 (09:55→21:58)
--- NOTE | 2021-12-10 10:20 | NUR ---
RN Notes: Received pt. awake in the room, responsive to staffs, no distress and no agitation noted. Ate 100% for breakfast, compliant on med, Pt. had shower, needs attended and will continue to monitor for safety.
[2021-12-10 16:00] VITALS: BP 111/72
[2021-12-10 20:50] VITALS: BP 108/79
[2021-12-11 08:00] VITALS: BP 99/70
[2021-12-11] MEDS: AMLODIPINE 5 MG PO SCH (08:11)
[2021-12-11] MEDS: HCTZ 25 MG PO SCH (08:11)
--- NOTE | 2021-12-11 08:12 | NUR ---
RN Notes: Morning meds of Amlodipine and HCTZ not given for a low BP. BP 99/70, SD 71.
[2021-12-11] MEDS: INVEST MED Kar XT OR PLACEBO 50/20 MG PO SCH ×2 (09:59→21:16)
--- NOTE | 2021-12-11 10:37 | NUR ---
RN Notes: Received pt. awake in the room, responsive to staffs, no distress and no agitation noted. Ate 100% for breakfast, morning meds of Amlodipine and HCTZ not given for a low BP. BP 99/70, AL 71 and compliant on Investigational meds. Needs attended and will continue to monitor for safety. Addendum: 12/11/21 at 1050 by FLORES PEREZ RN Pt. ate 25% for breakfast.
[2021-12-11 16:00] VITALS: BP 104/74
[2021-12-11 20:00] VITALS: BP 116/81
--- NOTE | 2021-12-12 02:27 | NUR ---
GPS RN NOTE, PATIENT HAS A COMPLAINT OF A HEADACHE AT 2 OUT OF 10 ON THE PAIN SCALE AND IS REQUESTING TYLENOL AT THIS TIME. PATIENT VITAL SIGNS ARE STABLE. GAVE TYLENOL 1,000 MG PO Q8HR PRN ORDERED. WILL REASSESS PAIN AND I WILL CONTINUE TO MONITOR THIS PATIENT WITH THE HELP OF STAFF.
[2021-12-12 08:00] VITALS: BP 126/72
[2021-12-12] MEDS: HCTZ 25 MG PO SCH (09:19)
[2021-12-12] MEDS: AMLODIPINE 5 MG PO SCH (09:20)
[2021-12-12] MEDS: INVEST MED Kar XT OR PLACEBO 50/20 MG PO SCH ×2 (10:08→21:10)
[2021-12-12 16:00] VITALS: BP 138/72
--- NOTE | 2021-12-12 19:45 | NUR ---
GPS RN NOTES: RECEIVED PATIENT IN BED, AWAKE, A/O X3. APPROPRIATE AFFECT, PASSIVE, ISOLATIVE, COOPERATIVE. PATIENT CONTINUES TO ADMITS TO AUDITORY HALLUCINATIONS. EDUCATION PROVIDED. PATIENT DENIES SI, HI AND PAIN AT THIS TIME. NO S/S OF DISTRESS NOTED. RESPIRATION EVEN AND UNLABORED WITH EQUAL RISE AND FALL OF THE CHEST, ON ROOM AIR. OFFERED FLUID AND SNACKS TOLERATED. BED IN LOW LOCKED POSITION, SIDE RAILS UP X2 FOR SAFETY. WILL CONTINUE TO MONITOR Q15 MIN FOR SAFETY, MOOD AND BEHAVIOR.
[2021-12-12 20:39] VITALS: BP 114/78
--- NOTE | 2021-12-13 06:19 | NUR ---
GPS RN NOTES: WEEKLY SKIN ASSESSMENT DONE, SKIN INTACT
[2021-12-13 08:00] VITALS: BP 125/98
--- NOTE | 2021-12-13 09:00 | NUR ---
Patient alert,verbally responsive poor judgment flat affect ,preoccupied with her own thoughts Continue to monitor for safety q15 minutes encourage patient to verbalize feelings and thoughts ,redirect as needed.
[2021-12-13] MEDS: AMLODIPINE 5 MG PO SCH (09:42)
[2021-12-13] MEDS: HCTZ 25 MG PO SCH (09:42)
[2021-12-13] MEDS: INVEST MED Kar XT OR PLACEBO 50/20 MG PO SCH ×2 (09:43→21:56)
[2021-12-13] MEDS ORDERED: LORAZEPAM 1 MG TABLET FOR AGITATION/ANXIETY PO PRN (13:00)
[2021-12-13] MEDS ORDERED: ZOLPIDEM TARTRATE 10 MG TABLET PO PRN (13:00)
--- NOTE | 2021-12-13 13:00 | NUR ---
Patient listening to music ,stay in her room ,isolative and withdrawn ,no interaction with peers .Continue to monitor for safety q15 minutes redirect as needed , encourage patient to verbalize feelings and thoughts
[2021-12-13 16:00] VITALS: BP 114/70
--- NOTE | 2021-12-13 19:40 | NUR ---
GPS RN NOTES: RECEIVED PATIENT IN BED, AWAKE, A/O X3. APPROPRIATE AFFECT, CALM AND COOPERATIVE. PATIENT CONTINUES TO ENDORSE V/A HALLUCINATIONS. PATIENT DENIES SI, HI AND PAIN AT THIS TIME. NO S/S OF DISTRESS NOTED. RESPIRATION EVEN AND UNLABORED WITH EQUAL RISE AND FALL OF THE CHEST, ON ROOM AIR. OFFERED FLUID AND SNACKS TOLERATED. BED IN LOW LOCKED POSITION, SIDE RAILS UP X2 FOR SAFETY. WILL CONTINUE TO MONITOR Q15 MIN FOR SAFETY, MOOD AND BEHAVIOR.
[2021-12-13 20:00] VITALS: BP 133/75
[2021-12-14 08:00] VITALS: BP 119/76
--- NOTE | 2021-12-14 09:00 | NUR ---
Patient alert,verbally responsive poor judgment flat affect, labile preoccupied with her own thoughts Continue to monitor for safety q15 minutes encourage patient to verbalize feelings and thoughts redirect as needed.
[2021-12-14] MEDS: AMLODIPINE 5 MG PO SCH (09:16)
[2021-12-14] MEDS: HCTZ 25 MG PO SCH (09:16)
[2021-12-14] MEDS: INVEST MED Kar XT OR PLACEBO 50/20 MG PO SCH ×2 (09:17→21:58)
--- NOTE | 2021-12-14 13:00 | NUR ---
Patient alert,verbally responsive poor .Continue to monitor for safety q15 minutes encourage patient to verbalize feelings and thoughts ,redirect as needed.
[2021-12-14 16:02] VITALS: BP 124/72
--- NOTE | 2021-12-14 19:38 | NUR ---
GPS RN NOTES: RECEIVED PATIENT IN BED, AWAKE, A/O X3. APPROPRIATE AFFECT, CALM AND COOPERATIVE. PATIENT DENIES SI, HI AND PAIN AT THIS TIME. NO S/S OF DISTRESS NOTED. RESPIRATION EVEN AND UNLABORED WITH EQUAL RISE AND FALL OF THE CHEST, ON ROOM AIR. OFFERED FLUID AND SNACKS TOLERATED. BED IN LOW LOCKED POSITION, SIDE RAILS UP X2 FOR SAFETY. WILL CONTINUE TO MONITOR Q15 MIN FOR SAFETY, MOOD AND BEHAVIOR.
[2021-12-14 20:00] VITALS: BP 114/78
[2021-12-15] MEDS: AMLODIPINE 5 MG PO SCH (08:20)
[2021-12-15] MEDS: HYDROCHLOROTHIAZIDE 25 MG TABLET PO SCH (08:22)
--- NOTE | 2021-12-15 09:06 | NUR ---
RN-CO: Patient is aware of her discharge tomm, per Dr Sales. She denied pain and discomforts. She still has AH/VH but she said it does not bother her anymore. She is pleasant and excited to show me her tarot cards. I will continue to monitor and notify Dr Sales.
--- NOTE | 2021-12-15 09:08 | NUR ---
RN-CO: Patient is cooperative to care. Still has AH/VH. Denied adverse reactions from IP. He was picked up by Dr Sales's staff at 0900 am for EKG.
[2021-12-15] MEDS: INVEST MED Kar XT OR PLACEBO 50/20 MG PO SCH ×2 (09:55→20:23)
[2021-12-15 20:00] VITALS: BP 115/75
[2021-12-16] MEDS: AMLODIPINE 5 MG PO SCH (08:03)
--- NOTE | 2021-12-16 08:36 | NUR ---
RN-CO: PATIENT IS AWARE OF HER DISCHARGE. SHE DENIES SUICIDAL AND HOMICIDAL IDEATION WELL COMMAND HALLUCINATION. DR AC GAVE DISCHARGE ORDER VIA PHONE CALL. PT IS EXCITED TO BE DISCHARGE AND SHE DENIES PAIN AND DISCOMFORTS. PATIENT HAS ALL HER BELONGINGS WITH HER.
--- NOTE | 2021-12-16 08:56 | NUR ---
RN-CO: PT LEFT THE UNIT AT 8:56 AM , SHE REFUSED TO BRING WITH HER DISCHARGE INSTRUCTIONS AND EXIT CARE. SHE STATED POLITELY, " I DON'T THINK I NEED THOSE PAPER WORKS, I AM VERY COMPLIANT WITH MY MEDICATIONS AND I KNOW MY DIAGNOSIS AND WHAT TO DO." SHE LEFT THE UNIT WITH ALL HER BELONGINGS AND WILL GO TO DR AC'S OFFICE NOW.
[2021-12-16 09:00] VITALS: BP 126/60
[2021-12-16] MEDS: HYDROCHLOROTHIAZIDE 25 MG TABLET PO SCH (09:00)
== END 2021-12-16 08:57 | disposition home or self-care (01) | DRG 951 ==
LOC: GPS 13:52 → UNDOADMIN 13:52 → MEDOV2 13:52 → GPS 11-04 16:54 → MEDOV2 11-05 15:57
PROVIDERS: ADMIT Psychiatry & Neurology Psychiatry; ATTEND Psychiatry & Neurology Psychiatry
DX: Z00.6 Encounter for examination for normal comparison and control in clinical research program (principal); F20.0 Paranoid schizophrenia; I10 Essential (primary) hypertension; G47.00 Insomnia, unspecified; Z79.899 Other long term (current) drug therapy; Z90.710 Acquired absence of both cervix and uterus
CPT/HCPCS: G0378

== ENCOUNTER 2022-05-03 12:00 | Inpatient (IN) | payer OTHER ==
[~2022-05-03] VITALS: Ht 170.2 cm; Wt 97.1 kg
--- NOTE | 2022-05-03 14:00 | NUR ---
RN ADMITTING NOTES: ADMITTED A 51 YO FEMALE PATIENT IN MED SURG UNIT @ 1345PM, A/O X 4 AND ABLE TO VERBALIZED NEEDS. NO SOB OR CARDIAC DISTRESS NOTED. ON ROOM AIR AND TOLERATING WELL. NO IV ACCESS. PATIENT REFUSED BODY CHECK PER PATIENT SHE DOESN'T HAVE WOUND. LUNGS CLEAR. ABDOMEN SOFT AND NON-TENDER. VS STABLE:121/84, HR 77, 02 SAT 98%, 98.2F. SAFETY PRECAUTIONS INITIATED: BED LOCKED AND IN LOWEST POSITION, SIDE RAILS UP X 2. CALL LIGHT AND BED SIDE TABLE IN EASY REACH. KEPT RESTED AND COMFORTABLE. ORIENTED TO UNIT, STAFFS. PROVIDED PITCHER OF WATER AND BED SIDE TABLE. WILL MONITOR FOR ANY SIGNIFICANT CHANGE AND WILL REPORT TO .
[2022-05-03] MEDS ORDERED: ACETAMINOPHEN ES 500 MG TABLET PO PRN (14:30)
[2022-05-03] MEDS ORDERED: IBUPROFEN 200 MG TABLET PO PRN (14:30)
[2022-05-03] MEDS ORDERED: ZOLPIDEM TARTRATE 10 MG TABLET PO PRN (14:30)
[2022-05-03] MEDS ORDERED: LORAZEPAM 1 MG TABLET FOR AGITATION PO PRN (14:30)
[2022-05-03] MEDS ORDERED: MAG HYDROX/AL HYDROX/SIMETH 30 ML UDC PO PRN (14:30)
[2022-05-03] MEDS ORDERED: MAGNESIUM HYDROXIDE 30 ML UDC PO PRN (14:30)
--- NOTE | 2022-05-03 18:46 | NUR ---
MS RN CLOSING NOTES: PATIENT IN BED AWAKE, ALERT AND ORIENTED X 4 AND ABLE TO VERBALIZED NEEDS. NO SOB OR CARDIAC DISTRESS NOTED, ON ROOM AIR AND TOLERATING WELL. NO IV ACCESS. NO ANY BEHAVIORAL ISSUES OR CHANGES HAPPENED IN OUR SHIFT. KEPT RESTED AND COMFORTABLE. CALL LIGHT AND BED SIDE TABLE IN EASY REACH. ENDORSED TO COAL UNLOADER FOR JUANJO.
--- NOTE | 2022-05-03 19:47 | NUR ---
MS RN OPENING NOTES: RECEIVED PATIENT IN BED AAOX4 AND ABLE TO VERBALIZED NEEDS.ON RM AIR LEX WELL.NO SIGN SOB/DISTRESS NOTED.NO IV ACCESS. NO ANY BEHAVIORAL ISSUES OR CHANGES HAPPENED IN OUR SHIFT. KEPT RESTED AND COMFORTABLE. CALL LIGHT WITHIN REACH.WILL CONTINUE TO MONITOR.
[2022-05-03 20:00] VITALS: BP 122/77
[2022-05-03] MEDS ORDERED: SEROQUEL 300 MG PO SCH (22:00)
[2022-05-03] MEDS ORDERED: QUETIAPINE FUMARATE 100 MG TABLET ONE ×2 (22:22→22:47)
--- NOTE | 2022-05-04 06:39 | NUR ---
MS RN CLOSING NOTES: PATIENT IN BED AAOX4 AND ABLE TO VERBALIZED NEEDS.ON RM AIR LEX WELL.NO SIGN SOB/DISTRESS NOTED.NO IV ACCESS.DUE MEDS GIVEN ORDERED.ALL NEEDS ATTENTED. NO ANY BEHAVIORAL ISSUES DURING SHIFT. KEPT RESTED AND COMFORTABLE. CALL LIGHT WITHIN REACH.WILL ENDORSED TO NEXT SHIFT.
--- NOTE | 2022-05-04 07:30 | NUR ---
MS RN OPENING NOTES RECEIVED PATIENT ON BED AND A/O X4. ON ROOM AIR TOLERATING WELL. NO SOB NOTED. NOT IN DISTRESS. WITH NO UNUSUAL BEHAVIORAL CHANGES NOTED. WITH NO IV ACCESS. ON CLINICAL STATUS. SAFETY MEASURES IN PLACED. CALL LIGHT WITHIN REACH. BED ON LOWEST LOCKED POSITION, SIDE RAILS UP X2. WILL CONTINUE TO MONITOR.
[2022-05-04 08:00] VITALS: BP 101/73
[2022-05-04] MEDS: HYDROCHLOROTHIAZIDE 25 MG PO SCH (08:49)
[2022-05-04] MEDS: AMLODIPINE 5 MG PO SCH (08:50)
[2022-05-04 16:14] VITALS: BP 110/77
--- NOTE | 2022-05-04 18:11 | NUR ---
MS RN CLOSING NOTES PATIENT ON BED AND A/O X4. ON ROOM AIR TOLERATING WELL. NO SOB NOTED. NOT IN DISTRESS. WITH NO UNUSUAL BEHAVIORAL CHANGES NOTED. WITH NO IV ACCESS. ON CLINICAL STATUS. DUE MEDS GIVEN. SAFETY MEASURES IN PLACED. CALL LIGHT WITHIN REACH. BED ON LOWEST LOCKED POSITION, SIDE RAILS UP X2. WILL ENDORSE TO NEXT SHIFT FOR JUANJO.
[2022-05-04 20:00] VITALS: BP 108/64
--- NOTE | 2022-05-04 20:01 | NUR ---
MS RN OPENING NOTES: RECEIVED PATIENT IN BED AAOX4 AND ABLE TO VERBALIZED NEEDS.ON RM AIR LEX WELL.NO SIGN SOB/DISTRESS NOTED.NO IV ACCESS. NO ANY BEHAVIORAL ISSUES NOTED. KEPT RESTED AND COMFORTABLE. CALL LIGHT WITHIN REACH.WILL CONTINUE TO MONITOR.
[2022-05-04] MEDS ORDERED: SEROQUEL 50 MG PO SCH (22:00)
--- NOTE | 2022-05-05 06:23 | NUR ---
MS RN CLOSING NOTES; PATIENT IN BED AAOX4 AND ABLE TO VERBALIZED NEEDS.ON RM AIR LEX WELL.NO SIGN SOB/DISTRESS NOTED.NO IV ACCESS.DUE MEDS GIVEN ORDERED.ALL NEEDS ATTENTED. NO ANY BEHAVIORAL ISSUES DURING SHIFT. KEPT RESTED AND COMFORTABLE. CALL LIGHT WITHIN REACH.WILL ENDORSED TO NEXT SHIFT.
--- NOTE | 2022-05-05 07:26 | NUR ---
RN OPENING NOTES; RECEIVED PATIENT IN BED, SLEEPING. AAX04, ABLE TO MAKE NEEDS KNOWN. ON ROOM AIR, TOLERATING WELL. NO NOTED S/SX OF SOB/DISTRESS. NO IV ACCESS. PATIENT IS AMBULATORY. WILL CONTINUE TO MONITOR.
[2022-05-05 08:00] VITALS: BP 104/71
[2022-05-05] MEDS: AMLODIPINE 5 MG PO SCH (08:10)
[2022-05-05] MEDS: HYDROCHLOROTHIAZIDE 25 MG PO SCH (08:11)
[2022-05-05 16:00] VITALS: BP 119/76
--- NOTE | 2022-05-05 18:50 | NUR ---
MS RN CLOSING NOTES RECEIVED PATIENT IN BED, WATCHING TV, AAX04, ABLE TO MAKE NEEDS KNOWN. ON ROOM AIR, TOLERATING WELL. NO NOTED S/SX OF SOB/DISTRESS. PATIENT IS AMBULATORY. NO IV ACCESS. SAFETY MEASURES KEPT IN PLACE. BED LOCKED AND IN LOWEST POSITION, SIDE RAILS UP X2, CALL LIGHT WITHIN REACH. ALL NEEDS AND CARE ATTENDED WELL. WILL ENDORSE TO THE MILLER HELPER NURSE.
--- NOTE | 2022-05-05 19:20 | NUR ---
RN NOTE RECEIVED PT IN BED, WATCHING TV. A/OX4, DENIES ANY PAIN/DISCOMFORT. NO SOB. AMBULATORY AND INDEPENDENT WITH ADLs. SAFETY INSTRUCTIONS PROVIDED AND PT VERBALIZED UNDERSTANDING. NO BEHAVIOR ISSUES NOTED. SAFETY MEASURES IN PLACE, BED IN LOWEST LOCKED POSITION, S/R UPX2, CALL LIGHT WITHIN REACH. WILL CONT TO MONITOR.
[2022-05-05 20:00] VITALS: BP 105/70
[2022-05-05] MEDS ORDERED: SEROQUEL 50 MG PO SCH (22:00)
--- NOTE | 2022-05-06 06:50 | NUR ---
RN NOTE PT RESTING IN BED, EASILY AROUSABLE TO STIMULI. NO C/O PAIN. NO SOB. PT SLEPT WELL THROUGHOUT THE NIGHT. NO BEHAVIOR ISSUES NOTED THIS SHIFT. SAFETY MEASURES MAINTAINED.
--- NOTE | 2022-05-06 07:15 | NUR ---
ms rn received on bed, a clinical trial patient of dr. barrientos, awake,alert,oriented x4,not in any form of distress, respirations even and unlabored,no distress noted, will monitor patient.
--- NOTE | 2022-05-06 09:20 | NUR ---
ms cervantes breakfast served,due meds given,tolerated well.
[2022-05-06] MEDS: HYDROCHLOROTHIAZIDE 25 MG PO SCH (09:31)
[2022-05-06] MEDS: AMLODIPINE 5 MG PO SCH (09:33)
--- NOTE | 2022-05-06 19:58 | NUR ---
RN OPENING NOTES RECEIVED PT IN BED, AWAKE WATCHING TV AND LISTENING TO MUSIC. AOx4, ABLE TO MAKE NEEDS KNOWN. ON RA AND TOLERATING WELL. NO SOB NOTED. NO S/SX OF RESPIRATORY DISTRESS NOTED. NO IV ACCESS PRESENT DUE TO CLINICAL TRIAL STATUS. SAFETY PRECAUTIONS IN PLACE: BED IN LOWEST, LOCKED POSITION, SIDERAILS UPx2, AND BRAKES ON. TABLE AND CALL LIGHT WITHIN REACH. WILL CONTINUE TO MONITOR.
[2022-05-06 20:25] VITALS: BP 118/79
[2022-05-06] MEDS ORDERED: SEROQUEL 50 MG PO SCH (22:00)
--- NOTE | 2022-05-07 06:53 | NUR ---
RN CLOSING NOTES PT IN BED, ASLEEP, AWAKENS TO VERBAL STIMULI. AOx4, ABLE TO MAKE NEEDS KNOWN. ON RA AND TOLERATING WELL. NO SOB NOTED. NO S/SX OF RESPIRATORY DISTRESS NOTED. NO IV ACCESS PRESENT DUE TO CLINICAL TRIAL STATUS. ALL ORDERS CARRIED OUT. ALL NEEDS MET. PT KEPT CLEAN AND DRY. SAFETY PRECAUTIONS IN PLACE: BED IN LOWEST, LOCKED POSITION, SIDERAILS UPx2, AND BRAKES ON. TABLE AND CALL LIGHT WITHIN REACH. WILL ENDORSE TO ONCOMING SHIFT FOR JUANJO.
--- NOTE | 2022-05-07 07:30 | NUR ---
RN OPENING NOTE REPORT RECEIVED PATIENT ALERT AND AWAKE A&OX4 SITTING UP IN THE BED. ALL VSS. PATIENT SATTING AT 94% ON ROOM AIR. SR. DIET REGULAR. IV NONE PATIENT HERE FOR CLINICAL TRIAL NOT TO START TILL 05/18/22. ALL SAFETY FALL PRECAUTIONS IN PLACE BED LOCK ON, BED IN LOWEST POSITION, SIDE RAILS UP, CALL LIGHT WITHIN REACH. PATIENT IS AMBULATORY AND ABLE TO LEAVE THE HOSPITAL NEEDED TO TAKE CARE OF PERSONAL BUSINESS. WILL CONTINUE TO MONITOR.
[2022-05-07 08:00] VITALS: BP 113/80
[2022-05-07] MEDS: HYDROCHLOROTHIAZIDE 25 MG PO SCH (09:49)
[2022-05-07] MEDS: AMLODIPINE 5 MG PO SCH (09:49)
[2022-05-07 16:00] VITALS: BP 118/76
--- NOTE | 2022-05-07 19:19 | NUR ---
RN CLOSING NOTE PATIENT AWAKE AND ALERT A&OX4. ALL VSS. PATIENT ON ROOM AIR SATTING AT 96%. REGULAR DIET. CURRENTLY AWAITING A CLINICAL TRIAL TO START. ALL SAFETY FALL PRECAUTIONS IN PLACE. PATIENT IS STABLE AND SHOWS NO SIGHS OF DISTRESS.
--- NOTE | 2022-05-07 19:52 | NUR ---
MS RN OPENING NOTE RECEIVED PT AWAKE IN BED. A/O X4 AND ABLE TO MAKE NEEDS KNOWN. PT STABLE ON ROOM AIR. NO SOB OR S/S OF RESPIRATORY DISTRESS. BREATHING EVEN AND UNLABORED. NO IV ACCESS DUE TO CLINICAL TRAIL STATUS. SAFETY PRECAUTIONS IN PLACE. BED IN LOWEST LOCKED POSITION, HOB ELEVATED, SIDE RAILS UP X2, AND CALL LIGHT AND TABLE WITHIN REACH. ALL NEEDS MET AT THIS TIME.
[2022-05-07] MEDS ORDERED: QUETIAPINE 50 MG PO SCH (22:00)
--- NOTE | 2022-05-08 07:06 | NUR ---
MS RN OPENING NOTE PT AWAKE IN BED. A/O X4 AND ABLE TO MAKE NEEDS KNOWN. PT STABLE ON ROOM AIR. NO SOB OR S/S OF RESPIRATORY DISTRESS. BREATHING EVEN AND UNLABORED. NO IV ACCESS DUE TO CLINICAL TRAIL STATUS. ALL DUE MEDS GIVEN ORDERED. SAFETY PRECAUTIONS IN PLACE AT ALL TIMES. BED IN LOWEST LOCKED POSITION, HOB ELEVATED, SIDE RAILS UP X2, AND CALL LIGHT AND TABLE WITHIN REACH. ALL NEEDS MET AT THIS TIME AND WILL ENDORSE TO ONCOMING NURSE FOR JUANJO. Addendum: 05/08/22 at 0706 by MIKIE PATEL RN CLOSING NOTE
--- NOTE | 2022-05-08 08:24 | NUR ---
MS RN OPENING NOTE Patient in bed, awake. A/O x 4, able to make needs known. On room air, breathing evenly and unlabored. No SOB or s/s of distress noted. No IV access due to clinical trial status. Denies any pain or discomfort at this time. Safety precautions in place: bed in low, locked position; siderails up x 2; call light within reach. Will continue to monitor.
[2022-05-08 08:38] VITALS: BP 110/78
[2022-05-08] MEDS: AMLODIPINE 5 MG PO SCH (08:52)
[2022-05-08] MEDS: HYDROCHLOROTHIAZIDE 25 MG PO SCH (08:53)
--- NOTE | 2022-05-08 19:15 | NUR ---
MS RN NOTES RECEIVED PATIENT IN BED AWAKE, ALERT AND ORIENTED X3, NO ACUTE DISTRESS NOTED. PATIENT REMAINS ISOLATIVE, WITHDRAWN AND BLUNTED AFFECT. PATIENT STILL HEARING VOICES. PATIENT STATES, "PEOPLE ARE TALKING LOUD, SCREAMS AND CURSING" PATIENT HAVING VISUAL HALLUCINATION SEEING THINGS LIKE BAD SPIRITS, DEVILS AND PEOPLE ON THE WALL. NO VERBALIZATION OF THOUGHTS OR FEELINGS. SAFETY PRECAUTIONS MAINTAINED. WILL CONTINUE TO MONITOR FOR SAFETY AND BEHAVIOR.
--- NOTE | 2022-05-08 19:45 | NUR ---
MS RN CLOSING NOTE Patient in bed, resting. A/O x 4, able to make needs known. Stable on room air, breathing evenly and unlabored. No SOB or s/s of distress noted. No IV access due to clinical trial status. Denies any pain or discomfort at this time. Safety precautions maintained: bed in low, locked position; siderails up x 2; call light within reach. Will endorse to night cleaner nurse for JUANJO.
[2022-05-08 20:00] VITALS: BP 105/76
[2022-05-08] MEDS ORDERED: SEROQUEL 50 MG PO SCH (22:00)
--- NOTE | 2022-05-09 06:42 | NUR ---
MS RN CLOSING NOTE Patient in bed, asleep. A/O x 4, able to make needs known. On room air and tolerating well, breathing evenly and unlabored. No SOB or s/s of distress noted. No IV access due to clinical trial status. Denies any pain or discomfort at this time. Denies SI/HI at this time. Safety precautions maintained: bed in low, locked position; siderails up x 2; call light within reach. Will endorse to day shift nurse for continuity of care.
--- NOTE | 2022-05-09 07:04 | NUR ---
MS RN OPENING NOTE RECEIVED PATIENT SLEEPING IN BED, ON ROOM AIR, NO S/S OF RESPIRATORY DISTRESS. A/O x4, NO S/S OR C/O OF CARDIAC DISTRESS. NO IV ACCESS. PATIENT IS AMBULATORY AND CONTINENT, HAS BRP. SKIN IS INTACT. SAFETY MEASURES IN PLACE: BED LOCKED AND IN LOWEST POSITION, SIDE RAILS UP x2, HOB ELEVATED, AND CALL LIGHT WITHIN REACH.
[2022-05-09] MEDS: AMLODIPINE 5 MG PO SCH (08:51)
[2022-05-09] MEDS: HYDROCHLOROTHIAZIDE 25 MG PO SCH (08:51)
[2022-05-09 16:13] VITALS: BP 126/89
--- NOTE | 2022-05-09 18:43 | NUR ---
MS RN CLOSING NOTE PATIENT IN BED RESTING ON PHONE, ON ROOM AIR, NO S/S OF RESPIRATORY DISTRESS. A/O x4, NO S/S OR C/O OF CARDIAC DISTRESS. NO IV ACCESS. PATIENT IS AMBULATORY AND CONTINENT, HAS BRP. SKIN IS INTACT. SAFETY MEASURES MAINTAINED: BED LOCKED AND IN LOWEST POSITION, SIDE RAILS UP x2, HOB ELEVATED, AND CALL LIGHT WITHIN REACH. WILL ENDORSE TO NEXT SHIFT ANY JUANJO.
--- NOTE | 2022-05-09 19:30 | NUR ---
RN OPENING NOTES RECEIVED PT IN BED, WATCHING TV WITH HEADPHONES ON. AOx4, ABLE TO MAKE NEEDS KNOWN. ON RA AND TOLERATING WELL. NO SOB NOTED. NO S/SX OF RESPIRATORY DISTRESS NOTED. CLINICAL TRIAL PATIENT SO NO IV ACCESS PRESENT. SAFETY PRECAUTIONS IN PLACE: BED IN LOWEST, LOCKED POSITION, SIDERAILS UPx2, AND BRAKES ON. TABLE AND CALL LIGHT WITHIN REACH. WILL CONTINUE TO MONITOR.
[2022-05-09] MEDS: QUETIAPINE FUMARATE 100 MG TABLET PO SCH ×2 (22:00→22:01)
--- NOTE | 2022-05-09 22:02 | NUR ---
RN NOTES REMOVED 600 MG OF PO SEROQUEL FOR PATIENT. WENT TO ADMINISTER IT AND PATIENT SAID "I'M NOT TAKING MY MEDICATION (SEROQUEL) TONIGHT. I GOTTA LEAVE EARLY IN THE MORNING". RETURNED 600 MG OF SEROQUEL TO [facility].
--- NOTE | 2022-05-10 07:01 | NUR ---
MS RN OPENING NOTES RECEIVED PATIENT RESTING IN BED, ON ROOM AIR, NO S/S OF RESPIRATORY DISTRESS. A/O x4, NO S/S OR C/O OF CARDIAC DISTRESS. NO IV ACCESS. PATIENT IS AMBULATORY AND CONTINENT, HAS BRP. SKIN IS INTACT. SAFETY MEASURES IN PLACE: BED LOCKED AND IN LOWEST POSITION, SIDE RAILS UP x2, HOB ELEVATED, AND CALL LIGHT WITHIN REACH.
[2022-05-10 08:00] VITALS: BP 110/75
[2022-05-10] MEDS: AMLODIPINE 5 MG PO SCH (08:36)
[2022-05-10] MEDS: HYDROCHLOROTHIAZIDE 25 MG PO SCH (08:36)
--- NOTE | 2022-05-10 10:47 | NUR ---
MS SPEECH THERAPIST NOTES PATIENT STABLE, D/C HOME. PATIENT GIVEN DISCHARGE INSTRUCTIONS AND DISCHARGE SUMMARY. PATIENT PACKED BELONGINGS HERSELF AND DID NOT ALLOW RN TO TAKE INVENTORY. ONLY SIGNED DISCHARGE INSTRUCTIONS. COPIES MADE AND FILED. PATIENT LEFT WITH SKIN INTACT. PATIENT LEFT FOR DR. AC'S OFFICE ACCOMPANIED BY RN. CHARGE NURSE AND MD AWARE.
[2022-05-17] MEDS ORDERED: ZOLPIDEM TARTRATE 10 MG TABLET PO PRN (13:00)
[2022-05-17] MEDS ORDERED: LORAZEPAM 1 MG TABLET FOR AGITATION PO PRN (13:00)
[2022-05-18] MEDS ORDERED: INVEST MED CVL-231-2002 PO SCH (10:00)
[2022-05-24] MEDS ORDERED: LORAZEPAM 1 MG TABLET FOR AGITATION PO PRN (13:00)
[2022-05-24] MEDS ORDERED: ZOLPIDEM TARTRATE 10 MG TABLET PO PRN (13:00)
[2022-05-31] MEDS ORDERED: LORAZEPAM 1 MG TABLET FOR AGITATION PO PRN (13:00)
[2022-05-31] MEDS ORDERED: ZOLPIDEM TARTRATE 10 MG TABLET PO PRN (13:00)
[2022-06-07] MEDS ORDERED: LORAZEPAM 1 MG TABLET FOR AGITATION PO PRN (13:00)
[2022-06-07] MEDS ORDERED: ZOLPIDEM TARTRATE 10 MG TABLET PO PRN (13:00)
[2022-06-14] MEDS ORDERED: ZOLPIDEM TARTRATE 10 MG TABLET PO PRN (13:00)
[2022-06-14] MEDS ORDERED: LORAZEPAM 1 MG TABLET FOR AGITATION PO PRN (13:00)
[2022-06-21] MEDS ORDERED: LORAZEPAM 1 MG TABLET FOR AGITATION PO PRN (13:00)
[2022-06-21] MEDS ORDERED: ZOLPIDEM TARTRATE 10 MG TABLET PO PRN (13:00)
[2022-06-28] MEDS ORDERED: ZOLPIDEM TARTRATE 10 MG TABLET PO PRN (13:00)
[2022-06-28] MEDS ORDERED: LORAZEPAM 1 MG TABLET FOR AGITATION PO PRN (13:00)
== END 2022-05-10 10:30 | disposition home or self-care (01) | DRG 951 ==
LOC: UNDOADMIN 12:00 → MED 12:00
PROVIDERS: ADMIT Psychiatry & Neurology Psychiatry; ATTEND Psychiatry & Neurology Psychiatry
DX: Z00.6 Encounter for examination for normal comparison and control in clinical research program (principal); F20.0 Paranoid schizophrenia; I10 Essential (primary) hypertension; G47.00 Insomnia, unspecified; Z90.710 Acquired absence of both cervix and uterus; H50.9 Unspecified strabismus; Z79.899 Other long term (current) drug therapy
CPT/HCPCS: 87081-TC; G0378

== ENCOUNTER 2022-11-10 14:56 | Inpatient (IN) | payer OTHER ==
[~2022-11-10] VITALS: Ht 170.2 cm; Wt 105.7 kg
--- NOTE | 2022-11-10 15:30 | NUR ---
RN NOTES PATIENT REFUSED SKIN ASSESSMENT, VERBALIZED " I DON'T HAVE ANY WOUNDS".
--- NOTE | 2022-11-10 15:30 | NUR ---
PATIENT SAFETY COORDINATOR NOTES ADMITTED PATIENT TO ROOM 316, AMBULATORY, AWAKE AND ALERT X 4. ON ROOM AIR, TOLERATING WELL. NO SOB, NO SIGNS OF DISTRESS NOTED. NO BEHAVIORAL ISSUES NOTED, COOPERATIVE. NO IV ACCESS NOTED. REORIENT THE PT TO THE ROOM & THE USE OF CALL LIGHT BUTTON. VITALS TAKEN, STABLE AND RECORDED. PATIENT WILL BE ON CLINICAL TRIAL UNDER DR. AC. ALL NEEDS ATTENDED. SAFETY PRECAUTION IS MAINTAINED. BED AT LOW POSITION, SIDE RAILS UP X 2, BED ALARM IS ON, HOB ELEVATED, HEAD CALL LIGHT WITHIN REACH. WILL CONTINUE TO MONITOR.
[2022-11-10] MEDS ORDERED: IBUPROFEN 200 MG TABLET PO PRN (16:00)
[2022-11-10] MEDS ORDERED: MAGNESIUM HYDROXIDE 30 ML UDC PO PRN (16:00)
[2022-11-10] MEDS ORDERED: MAG HYDROX/AL HYDROX/SIMETH 30 ML UDC PO PRN (16:00)
[2022-11-10] MEDS ORDERED: ZOLPIDEM TARTRATE 10 MG TABLET PO PRN (16:00)
--- NOTE | 2022-11-10 16:00 | NUR ---
RN NOTES PATIENT WAS NEGATIVE FOR COVID ANTIGEN TEST, RESULT ATTACHED TO PATIENT CHART.
[2022-11-10 16:17] VITALS: BP 132/93
[2022-11-10] MEDS: AMLODIPINE 5 MG PO SCH (16:59)
[2022-11-10] MEDS: HYDROCHLOROTHIAZIDE 25 MG PO SCH (17:09)
--- NOTE | 2022-11-10 18:15 | NUR ---
RN CLOSING NOTES PATIENT AWAKE AND ALERT X 4. ON ROOM AIR, TOLERATING WELL. NO SOB, NO SIGNS OF DISTRESS NOTED. NO BEHAVIORAL ISSUES NOTED, COOPERATIVE. NO IV ACCESS. DUE MEDS GIVEN. ALL NEEDS ATTENDED. SAFETY PRECAUTION IS MAINTAINED. BED AT LOW POSITION, SIDE RAILS UP X 2, BED ALARM IS ON, HOB ELEVATED, HEAD CALL LIGHT WITHIN REACH. ENDORSED TO NIGHT NURSE
--- NOTE | 2022-11-10 18:54 | NUR ---
RN NOTES ASKED PHARMACY IF PATIENT'S MEDICATION( AMLODIPINE AND HYDROCHLOROTHIAZIDE CAN CHANGE SCHEDULE FROM EVENING TO MORNING SCHEDULE PATIENT IS USUALLY TAKING THESE PILLS IN THE MORNING. AWAITS RESPONSE FROM PHARMACY.
--- NOTE | 2022-11-10 19:30 | NUR ---
MS RN OPENING NOTE RECEIVED PATIENT IN BED; AWAKE, ALERT AND ORIENTED X 4. ON ROOM AIR; TOLERATING WELL. BREATHING EVEN AND NONLABORED. AFEBRILE; IN NO ACUTE DISTRESS. DENIES ANY PAIN OR DISCOMFORT AT THIS TIME. ON CLINICAL TRIAL. NO IV ACCESS. ABLE TO MAKE NEEDS KNOWN. SAFETY PRECAUTIONS IMPLEMENTED: CALL LIGHT AND TABLE WITHIN REACH, SIDE RAILS UP X 2, BED IN LOWEST LOCKED POSITION. WILL CONTINUE PLAN OF CARE.
[2022-11-10 20:00] VITALS: BP 121/85
[2022-11-10] MEDS ORDERED: SEROQUEL 50 MG PO ONE (20:00)
--- NOTE | 2022-11-11 06:35 | NUR ---
MS RN CLOSING NOTE PATIENT IN BED; AWAKE, A/O X 4. STABLE ON ROOM AIR. BREATHING EQUAL AND UNLABORED. IN NO APPARENT DISTRESS. NO C/O ANY PAIN OR DISCOMFORT AT THIS TIME. ON CLINICAL TRIAL. NO IV ACCESS. ALL DUE MEDS GIVEN ORDERED. SAFETY PRECAUTIONS IN PLACE: CALL LIGHT AND TABLE WITHIN REACH, SIDE RAILS UP X 2, BED IN LOWEST LOCKED POSITION. ENDORSED TO MORNING SHIFT FOR JUANJO.
--- NOTE | 2022-11-11 07:30 | NUR ---
MS RN OPENING NOTES RECEIVED PATIENT RESTING ON BED AND A/O X4. ON ROOM AIR TOLERATING WELL. NO SOB NOTED. NOT IN DISTRESS. WITH NO COMPLAINTS OF PAIN OR DISCOMFORT AT THIS TIME. WITH NO IV ACCESS. ON CLINICAL TRIAL STATUS. SAFETY MEASURES IN PLACED. CALL LIGHT WITHIN REACH. BED ON LOWEST LOCKED POSITION, SIDE RAILS UP X2. WILL CONTINUE TO MONITOR.
[2022-11-11 08:34] VITALS: BP 117/81
[2022-11-11] MEDS: ACETAMINOPHEN ES 500 MG TABLET PO PRN (16:08)
[2022-11-11] MEDS: AMLODIPINE 5 MG PO SCH (16:08)
[2022-11-11] MEDS: HYDROCHLOROTHIAZIDE 25 MG PO SCH (16:08)
[2022-11-11 16:14] VITALS: BP 124/80
--- NOTE | 2022-11-11 18:42 | NUR ---
MS RN CLOSING NOTES PATIENT RESTING ON BED AND A/O X4. ON ROOM AIR TOLERATING WELL. NO SOB NOTED. NOT IN DISTRESS. WITH NO COMPLAINTS OF PAIN OR DISCOMFORT AT THIS TIME. WITH NO IV ACCESS. ON CLINICAL TRIAL STATUS. DUE MEDS GIVEN. SAFETY MEASURES IN PLACED. CALL LIGHT WITHIN REACH. BED ON LOWEST LOCKED POSITION, SIDE RAILS UP X2. WILL ENDORSE TO NEXT SHIFT FOR JUANJO.
--- NOTE | 2022-11-11 19:15 | NUR ---
MSRN RECEIVED FULLY AWAKE, COOPERATIVE, NO DISCOMFORTS MADE. PLAN OF CARE AND MEDICATION REGIMEN, DISCUSSED WELL UNDERSTOOD. NO NEEDS FOR NOW. SAFETY PRECAUTIONS EMPHASIZED. TO CONTINUE.
[2022-11-11 20:00] VITALS: BP 120/86
[2022-11-11] MEDS ORDERED: SEROQUEL 50 MG PO ONE (20:00)
--- NOTE | 2022-11-11 20:41 | NUR ---
MSRN DUE MED ADMINISTERED, 2 OF 50 MG SEROQUEL TABS TOTAL OF 100MG PO GIVEN. WENT BACK TO SLEEP. NO NEEDS MADE, REMINDED TO CALL STAFF FOR ANY ASSISTANCE OR DISCOMFORTS. CALL LIGHT USE REVIEWED WITH PATIENT WELL UNDERSTOOD.
[2022-11-11 21:04] VITALS: BP 120/86
--- NOTE | 2022-11-12 06:21 | NUR ---
MSRN GOOD AMOUNT OF SLEEP. DID NOT VERBALIZE ANY TYPE OF HALLUCINATION,
[2022-11-12 08:00] VITALS: BP 132/90
[2022-11-12 16:00] VITALS: BP 140/86
[2022-11-12] MEDS: AMLODIPINE 5 MG PO SCH (16:43)
[2022-11-12] MEDS: HYDROCHLOROTHIAZIDE 25 MG PO SCH (16:43)
--- NOTE | 2022-11-12 19:27 | NUR ---
MS RN OPENING NOTE RECEIVED PATIENT SITTING IN BED, AWAKE, ALERT AND ORIENTED X4. ABLE TO COMMUNICATE NEEDS WITH THE STAFFS. AFEBRILE AND NOT IN ANY FORM OF ACUTE DISTRESS. BREATHING EVEN AND NON LABORED. NO C/O PAIN OR DISCOMFORT AT THIS TIME. ON CLINICAL TRIAL, MONITORED FOR ANY BEHAVIORAL ISSUES. SAFETY MEASURES IN PLACE. KEPT BED IN LOCKED AND IN LOW POSITION TO REDUCE INJURY. SIDE RAILS UP X2. ADVISED TO USE THE CALL LIGHT WHEN IN NEED OF ASSISTANCE.
[2022-11-12 20:00] VITALS: BP 129/89
--- NOTE | 2022-11-13 06:30 | NUR ---
MS RN CLOSING NOTE PATIENT IN BED, ASLEEP, BUT EASY TO AROUSE AND RESPONSIVE. ALERT AND ORIENTED X4. ABLE TO COMMUNICATE NEEDS WITH THE STAFFS. AFEBRILE AND NOT IN ANY FORM OF ACUTE DISTRESS. BREATHING EVEN AND NON LABORED. NO C/O PAIN OR DISCOMFORT THROUGHOUT THE SHIFT. ON CLINICAL TRIAL, MONITORED FOR ANY BEHAVIORAL ISSUES. SAFETY MEASURES IN PLACE. KEPT BED IN LOCKED AND IN LOW POSITION TO REDUCE INJURY. SIDE RAILS UP X2. ADVISED TO USE THE CALL LIGHT WHEN IN NEED OF ASSISTANCE. ALL NURSING NEEDS ATTENDED. ENDORSED TO INCOMING SHIFT FOR CONTINUITY OF CARE.
[2022-11-13 07:00] VITALS: BP 116/79
--- NOTE | 2022-11-13 07:45 | NUR ---
MS RN NOTES: RECEIVED PATIENT ASLEEP, EASILY ROUSED, ALERT AND ORIENTED X4. ABLE TO COMMUNICATE NEED. ON RA WITH BREATHING EVEN AND NON LABORED. NO C/O PAIN OR DISCOMFORT AT THIS TIME. SAFETY MEASURES IN PLACE. KEPT BED IN LOCKED AND IN LOW POSITION. ADVISED TO USE THE CALL LIGHT WHEN IN NEED OF ASSISTANCE, WILL CONT WITH PLAN OF CARE DURING SHIFT.
[2022-11-13] MEDS: HYDROCHLOROTHIAZIDE 25 MG PO SCH (15:56)
[2022-11-13] MEDS: AMLODIPINE 5 MG PO SCH (15:56)
[2022-11-13 16:00] VITALS: BP 123/84
--- NOTE | 2022-11-13 16:00 | NUR ---
RN NOTES: HOME BP MED GIVEN, BP= 123/84, HR= 80
--- NOTE | 2022-11-13 18:58 | NUR ---
MS RN CLOSING NOTES: PT IS AWAKE, IN BED, ALERT AND ORIENTED X4. ABLE TO COMMUNICATE NEEDS. ON RA WITH BREATHING EVEN AND NON LABORED. NO C/O PAIN OR DISCOMFORT AT THIS TIME, ALL NEEDS MET. SAFETY MEASURES IN PLACE, KEPT BED IN LOCKED AND IN LOW POSITION. ADVISED TO USE THE CALL LIGHT WHEN IN NEED OF ASSISTANCE, WILL ENDORSE TO PM SHIFT.
--- NOTE | 2022-11-13 19:21 | NUR ---
MS RN OPENING NOTE RECEIVED PATIENT SITTING IN BED, TALKING ON THE PHONE, ALERT AND ORIENTED X4. ABLE TO MAKE NEEDS KNOWN. AFEBRILE AND NOT IN ANY FORM OF ACUTE DISTRESS. BREATHING EVEN AND NON LABORED. NO C/O PAIN OR DISCOMFORT AT THIS TIME. ON CLINICAL TRIAL, MONITORED FOR ANY BEHAVIORAL CHANGES. SAFETY MEASURES IN PLACE. KEPT BED IN LOCKED AND IN LOW POSITION. SIDE RAILS UP X2. ADVISED TO USE THE CALL LIGHT WHEN IN NEED OF ASSISTANCE.
--- NOTE | 2022-11-14 06:30 | NUR ---
MS RN CLOSING NOTE PATIENT ON BED, ASLEEP BUT EASY TO AROUSE AND RESPONSIVE. ABLE TO MAKE NEEDS KNOWN. AFEBRILE AND NOT IN ANY FORM OF ACUTE DISTRESS. BREATHING EVEN AND NON LABORED. NO C/O PAIN OR DISCOMFORT THROUGHOUT THE SHIFT. ON CLINICAL TRIAL, MONITORED FOR ANY BEHAVIORAL CHANGES. SAFETY MEASURES IN PLACE. KEPT BED IN LOCKED AND IN LOW POSITION. SIDE RAILS UP X2. ADVISED TO USE THE CALL LIGHT WHEN IN NEED OF ASSISTANCE. ALL NURSING NEEDS ATTENDED. ENDORSED TO INCOMING SHIFT FOR CONTINUITY OF CARE.
--- NOTE | 2022-11-14 07:00 | NUR ---
RN OPENING NOTE- PT AMBULATING IN ROOM COMPLETING MORNING CARE, ALERT AND ORIENTED X4. ABLE TO MAKE NEEDS KNOWN. BREATHING EVEN AND NON LABORED. NO C/O PAIN OR DISCOMFORT AT THIS TIME. ON CLINICAL TRIAL, MONITORED FOR ANY BEHAVIORAL CHANGES. DENIES SI HI VH, NO EPS REPORTED, SAFETY MEASURES IN PLACE. KEPT BED IN LOCKED AND IN LOW POSITION. SIDE RAILS UP X2.
[2022-11-14 08:00] VITALS: BP 110/79
[2022-11-14] MEDS: AMLODIPINE 5 MG PO SCH (16:01)
[2022-11-14] MEDS: HYDROCHLOROTHIAZIDE 25 MG PO SCH (16:01)
--- NOTE | 2022-11-14 18:24 | NUR ---
RN CLOSING NOTE- PT IN ROOM, NO CHANGES, ALERT AND ORIENTED X4. ABLE TO MAKE NEEDS KNOWN. BREATHING EVEN AND NON LABORED. NO C/O PAIN OR DISCOMFORT AT THIS TIME. ON CLINICAL TRIAL, MONITORED FOR ANY BEHAVIORAL CHANGES. DENIES SI HI VH, NO EPS REPORTED, SAFETY MEASURES IN PLACE. KEPT BED IN LOCKED AND IN LOW POSITION. SIDE RAILS UP X2.
--- NOTE | 2022-11-14 19:53 | NUR ---
MS RN OPENING NOTES RECEIVED PATIENT WATCHING TV IN BED AWAKE, ALERT AND ORIENTED. A/O X 4. NO S/S OF PAIN NOTED AT THIS TIME. ON ROOM AIR, BREATHING EVEN AND UNLABORED. NO DISTRESS OR SHORTNESS OF BREATH NOTED. SAFETY MEASURES GIVEN WITH BED ON LOWEST AND LOCKED POSITION. CALL LIGHT AND TRAY WITHIN REACH. WILL CONTINUE WITH THE PLAN OF CARE.
[2022-11-14 20:00] VITALS: BP 104/80
--- NOTE | 2022-11-15 07:45 | NUR ---
RN OPENING NOTE PATIENT SITTING IN BED, ALERT AND ORIENTED X4. ABLE TO MAKE NEEDS KNOWN. BREATHING EVEN AND NON LABORED. NO C/O PAIN OR DISCOMFORT AT THIS TIME. ON CLINICAL TRIAL, MONITORED FOR ANY BEHAVIORAL CHANGES. DENIES LILLIAM CANNON , SAFETY MEASURES IN PLACE, KEPT BED IN LOCKED AND IN LOWEST POSITION. SIDE RAILS UP X2.
[2022-11-15 08:00] VITALS: BP 122/84
[2022-11-15] MEDS ORDERED: LORAZEPAM 1 MG TABLET PO PRN (12:01)
[2022-11-15] MEDS ORDERED: ZOLPIDEM TARTRATE 10 MG TABLET PO PRN (12:01)
--- NOTE | 2022-11-15 14:30 | NUR ---
RN NOTE RECEIVED AN ORDER FOR URINE TEST. PT REFUSED THE TEST, STATED SHE HAD HYSTERECTOMY AND CALLED DR AC OFFICE AND CONFIRMED WITH THEM. AGAIN STATED SHE REFUSE THE TEST.
[2022-11-15] MEDS: AMLODIPINE 5 MG PO SCH (15:41)
[2022-11-15] MEDS: HYDROCHLOROTHIAZIDE 25 MG PO SCH (15:41)
[2022-11-15 16:08] VITALS: BP 120/84
--- NOTE | 2022-11-15 18:45 | NUR ---
RN CLOSING NOTE PT IN ROOM, NO CHANGES, ALERT AND ORIENTED X4. ABLE TO MAKE NEEDS KNOWN. BREATHING EVEN AND NON LABORED. NO C/O PAIN OR DISCOMFORT AT THIS TIME. ON CLINICAL TRIAL, MONITORED FOR ANY BEHAVIORAL CHANGES. DENIES SI HI VH, NO EPS REPORTED, SAFETY MEASURES IN PLACE. KEPT BED IN LOCKED AND LOWEST POSITION. SIDE RAILS UP X2. WILL ENDORSE TO NEXT SHIFT FOR JUANJO.
--- NOTE | 2022-11-15 19:30 | NUR ---
MS RN OPENING NOTES RECEIVED PATIENT WATCHING TV IN BED AWAKE, ALERT AND ORIENTED X 4. NO S/S OF PAIN NOTED AT THIS TIME. ON ROOM AIR, BREATHING EVEN AND UNLABORED. NO DISTRESS OR SHORTNESS OF BREATH NOTED. ALL SAFETY MEASURES IN PLACE.BED ON LOWEST AND LOCKED POSITION. CALL LIGHT AND TABLE WITHIN REACH. WILL CONTINUE TO MONITOR CLOSELY .
[2022-11-15 20:31] VITALS: BP 126/83
--- NOTE | 2022-11-16 07:30 | NUR ---
RN MS NOTES PT AWAKE, ALERT AND ORIENTED, WALKING ALONG THE HALLWAY, NO COMPLAINT OF PAIN OR ANY DISCOMFORT, BREATHING PATTERN NORMAL.
--- NOTE | 2022-11-16 07:30 | NUR ---
MS RN CLOSING NOTES PATIENT WATCHING TV IN BED AWAKE, ALERT AND ORIENTED X 4. NO S/S OF PAIN NOTED AT THIS TIME. ON ROOM AIR, BREATHING EVEN AND UNLABORED. NO DISTRESS OR SHORTNESS OF BREATH NOTED. ALL SAFETY MEASURES IN PLACE.BED ON LOWEST AND LOCKED POSITION. CALL LIGHT AND TABLE WITHIN REACH. WILL ENDORSE FOR JUANJO.
[2022-11-16 08:00] VITALS: BP 118/80
--- NOTE | 2022-11-16 13:19 | NUR ---
RN MS NOTES PT WOULD LIKE TO TAKE HER BP MEDS IN THE MORNING LIKE SHE USED TO, INSTEAD OF IN THE AFTERNOON ORIGINALLY ORDERED, DR. AC INFORMED AND ORDERED TO CHANGE THE TIME OF BP MEDS IN THE MORNING.
[2022-11-16] MEDS: HCTZ 25 MG PO SCH (13:35)
[2022-11-16] MEDS: AMLODIPINE 5 MG PO SCH (13:35)
[2022-11-16 16:00] VITALS: BP 121/79
--- NOTE | 2022-11-16 18:46 | NUR ---
RN MS NOTES PT IN HER ROOM, AWAKE, ALERT AND ORIENTED, NO COMPLAINT OF PAIN OR ANY DISCOMFORT, NO BEHAVIOR PROBLEM NOTED DURING THE SHIFT, ALL NEEDS ATTENDED.
--- NOTE | 2022-11-16 19:37 | NUR ---
MS RN OPENING NOTES; RECEIVED PATIENT IN BED AAOX4.ON ROOM AIR LEX WELL,NO SOB/DISTRESS NOTED,NO BEHAVIORAL CHANGES AT THIS TIME,ALL SAFETY MEASURES IN PLACE.BED ON LOWEST AND LOCKED POSITION. CALL LIGHT AND TABLE WITHIN REACH. WILL CONTINUE TO MONITOR.
[2022-11-16 20:00] VITALS: BP 118/77
--- NOTE | 2022-11-17 06:30 | NUR ---
MS RN OPENING NOTES;316 PATIENT IN BED SLEEPING COMFORTABLE,ON ROOM AIR LEX WELL,NO SOB/DISTRESS NOTED,NO BEHAVIORAL CHANGES DURING SHIFT,ALL SAFETY MEASURES IN PLACE.BED ON LOWEST AND LOCKED POSITION. CALL LIGHT AND TABLE WITHIN REACH. WILL ENDORSED TO NEXT SHIFT.
[2022-11-17] MEDS ORDERED: INVESTIGATIONAL MED RVP -30-001 PO SCH (07:30)
--- NOTE | 2022-11-17 07:42 | NUR ---
MS RN OPENING NOTE Patient observed to be awake, in bed, appropriate, alert and oriented x 4, no c/o pain, no signs of discomfort nor distress, no unusual behavior or signs of EPS. Patient stated she slept well and feels well rested. Will continue to monitor per MD POC.
[2022-11-17 08:00] VITALS: BP 122/85
[2022-11-17] MEDS: AMLODIPINE 5 MG PO SCH (09:05)
[2022-11-17] MEDS: HCTZ 25 MG PO SCH (09:05)
[2022-11-17] MEDS: INVESTIGATIONAL MED RVP -30-001 PO SCH (10:11)
--- NOTE | 2022-11-17 12:00 | NUR ---
CLINICAL TRIAL MEDICATION MONITORING UPDATE Patient's vital signs are stable. No signs of distress, no SI, no HI, no signs of delusions, no apparent mood swings, no akathesia, no EPS, no c/o pain. Patient tolerated breakfast well with fair appetite. Patient swallowed all her scheduled 9:00 am routine medications for blood pressure and her 10:00 am scheduled investigational clinical trial medication. patient has been cooperative without any signs of adverse effects to medication. Will continue to monitor patient per MD POC.
[2022-11-17 16:00] VITALS: BP 118/75
--- NOTE | 2022-11-17 18:39 | NUR ---
MS RN CLOSING NOTE Patient has been alert and oriented x 4 all dayshift, cooperative, compliant with medication, without any signs of adverse effects. Patient visited Dr. Sales across the street from hospital this afternoon and returned to unit without any incident. Patient resting in bed with headphones on listening to her cellphone at the moment. Patient requesting to have ambien medication from night nurse edgardo to help her sleep. Will endorse to night nurseLeonidas, for JUANJO.
--- NOTE | 2022-11-17 19:30 | NUR ---
RN Opening Notes Received pt in bed, awake, watching TV. AOx4, able to make needs known. On RA and tolerating well. No SO Noted. No s/sx of respiratory distress noted. No IV access due to patient clinical trial status. Safety precautions in place: bed in lowest, locked position, siderails upX2, and brakes on. Table and call light within reach. All needs met at this time.
--- NOTE | 2022-11-17 19:35 | NUR ---
RN NOTES ADMINISTERED AMBIEN FOR SLEEP PER PT REQUEST.
[2022-11-17 20:19] VITALS: BP 125/86
--- NOTE | 2022-11-18 06:49 | NUR ---
RN Closing Notes Pt in room, asleep, awakens to verbal stimuli. AOx4, able to make needs known. On RA and tolerating well. No SOB Noted. No s/sx of respiratory distress noted. No IV access due to patient clinical trial status. All orders carried out. All needs met. Pt kept clean and dry. Safety precautions in place: bed in lowest, locked position, siderails upX2, and brakes on. Table and call light within reach. Will endorse to oncoming shift for JUANJO.
--- NOTE | 2022-11-18 07:20 | NUR ---
RN Opening Notes Received pt in bed, awake, on the phone, AOx4, able to make needs known. On RA and tolerating well. No SO Noted. No s/sx of respiratory distress noted. No IV access due to patient clinical trial status. Safety precautions in place: bed in lowest, locked position, siderails upX2, and brakes on. Table and call light within reach. will continue to monitor.
[2022-11-18 08:00] VITALS: BP 123/85
[2022-11-18] MEDS: INVESTIGATIONAL MED RVP -30-001 PO SCH (09:28)
[2022-11-18] MEDS: AMLODIPINE 5 MG PO SCH (09:28)
[2022-11-18] MEDS: HCTZ 25 MG PO SCH (09:28)
[2022-11-18 16:00] VITALS: BP 116/85
--- NOTE | 2022-11-18 18:47 | NUR ---
RN Closing Notes Pt in room, asleep, awakens to verbal stimuli. AOx4, able to make needs known. On RA and tolerating well. No SOB Noted. No s/sx of respiratory distress noted. No IV access due to patient clinical trial status. All orders carried out. All needs met. Pt kept clean and dry. Safety precautions in place: bed in lowest, locked position, side rails upX2, and brakes on. Table and call light within reach. Will endorse to oncoming night shift manager RN for JUANJO.
--- NOTE | 2022-11-18 19:15 | NUR ---
MS RN OPENING NOTE PATIENT IS IN BED SLEEPING, EASILY BEING AROUSED. SHE IS ALERT AND ORIENTED, AO X 4. SHE IS ON RA, TOLERATED WELL. NO S/S OF DISTRESS OR SOB. PATIENT IS ON CLINICAL TRIAL , NO IV ACCESS. PATIENT DENIES OF HAVING PAIN OR DISCOMFORT, NOR ANY BEHAVIORAL CHANGES AT THIS MOMENT. WILL HOLD PATIENT'S PRN MEDICATION LORAZEPAM AND AMBIEN AT 2100 TONIGHT. SAFETY MEASURES ARE IN PLACE: BED IN LOWEST AND LOCKED POSITION; CALL LIGHT AND TABLE ARE WITHIN REACH; SIDE RAILS UP X 2. WILL CONTINUE MONITORING THE PATIENT AND PROVIDE THE CARE PATIENT NEEDS.
[2022-11-18 20:25] VITALS: BP 133/89
--- NOTE | 2022-11-19 07:04 | NUR ---
MS RN CLOSING NOTE PATIENT IS IN BED SLEEPING, EASILY BEING AROUSED. SHE IS ALERT AND ORIENTED, AO X 4. SHE IS ON RA, TOLERATED WELL. NO S/S OF DISTRESS OR SOB. PATIENT IS ON CLINICAL TRIAL , NO IV ACCESS. PATIENT DENIES OF HAVING PAIN OR DISCOMFORT, NOR ANY BEHAVIORAL CHANGES THROUGHOUT THE SHIFT. PATIENT'S PRN MEDICATION LORAZEPAM AND AMBIEN WERE HELD AT 2100 DURING THE SHIFT. SAFETY MEASURES ARE IN PLACE: BED IN LOWEST AND LOCKED POSITION; CALL LIGHT AND TABLE ARE WITHIN REACH; SIDE RAILS UP X 2. WILL ENDORSE NEXT SHIFT NURSE FOR CONTINUING PATIENT CARE.
--- NOTE | 2022-11-19 07:30 | NUR ---
MS RN OPENING NOTE Patient in bed, awake. A/O x 4, able to make needs known. On room air, breathing evenly and unlabored. No SOB or s/s of distress noted. No IV access due to clinical trial status. Denies any pain to discomfort at this time. Safety precautions in place: bed in low, locked position; sdierails up x2; call light within reach. Will continue to monitor.
[2022-11-19 08:00] VITALS: BP 108/75
--- NOTE | 2022-11-19 09:00 | NUR ---
RN NOTE Verified with Dr. Sales about test order, per Dr. Sales he did not order test.
[2022-11-19] MEDS: INVESTIGATIONAL MED RVP -30-001 PO SCH (10:09)
[2022-11-19] MEDS: HCTZ 25 MG PO SCH (10:09)
[2022-11-19] MEDS: AMLODIPINE 5 MG PO SCH (10:09)
[2022-11-19] MEDS ORDERED: ZOLPIDEM TARTRATE 10 MG TABLET PO PRN (12:01)
[2022-11-19] MEDS ORDERED: LORAZEPAM 1 MG TABLET PO PRN (12:01)
[2022-11-19 16:00] VITALS: BP 118/80
--- NOTE | 2022-11-19 18:59 | NUR ---
MS RN CLOSING NOTE Patient in bed, resting. A/O x 4, able to make needs known. On room air, breathing evenly and unlabored. No SOB or s/s of distress noted. No IV access due to clinical trial status. Denies any adverse reaction to medication. All needs attended to. Due meds given. Safety precautions in place: bed in low, locked position; sdierails up x2; call light within reach. Will endorse to braiding operator nurse for JUANJO.
--- NOTE | 2022-11-19 19:30 | NUR ---
MS/CLINICAL TRIAL NOTE RECEIVED IN ROOM,SITTING ON HER BED,VERBALIZED NEEDS,ASKING FOR HER SLEEPING TONIGHT.WELL GROOMED,WATCHING TV PROGRAM.CALL LIGHT IN REACH,NEEDS ANTICIPATED.
[2022-11-19 20:00] VITALS: BP 110/74
[2022-11-19] MEDS ORDERED: ZOLPIDEM TARTRATE 10 MG TABLET ONE (21:48)
--- NOTE | 2022-11-19 21:49 | NUR ---
MS/CLINICAL TRIAL RN NOTES C/O INSOMNIA,AMBIEN 10MG PO GIVEN PER PATIENT REQUEST,WITH ORDER
--- NOTE | 2022-11-20 06:27 | NUR ---
MS JEANNA NOTES FAIRLY RESTED AT NIGHT.ABDOMINAL PAIN IMPROVED WITH PAIN MANAGEMENT.ON CLEAR LIQUIDS.PRESENT IVF INFUSING WELL ON LEFT AC,SITE PATENT.DUE ADMINISTERED ORDERED.CALL LIGHT IN PLACE NEEDS ATTENDED.WILL ENDORSE TO DAY NURSE FOR JUANJO. Addendum: 11/20/22 at 0642 by VERONICA CARL RN WRONG ENTRY OF NOTES,NOT FOR THIS PATIENT.
--- NOTE | 2022-11-20 06:44 | NUR ---
MS CLINICAL TRIAL NO SIGNIFICANT CHANGE IN BEHAVIOR.MED COMPLIANT.INTERACT WHEN ENGAGED,SLEEP WELL WITH AMBIEN.
--- NOTE | 2022-11-20 07:30 | NUR ---
PT RECEIVED RESTING COMFORTABLY IN BED. NO S/S OR C/O PAIN OR DISTRESS NOTED. SIDE RAILS UP X2, CALL LIGHT LEFT WITHIN REACH. WILL CONTINUE PLAN OF CARE.
[2022-11-20 08:00] VITALS: BP_SYST 114; BP_SYST 116; BP_DIAS 77; BP_DIAS 80
[2022-11-20] MEDS: AMLODIPINE 5 MG PO SCH (09:32)
[2022-11-20] MEDS: INVESTIGATIONAL MED RVP -30-001 PO SCH (09:32)
[2022-11-20] MEDS: HCTZ 25 MG PO SCH (09:32)
[2022-11-20 10:00] VITALS: BP 116/77
[2022-11-20 16:00] VITALS: BP 114/80
--- NOTE | 2022-11-20 18:49 | NUR ---
CHANGE OF SHIFT REPORT PT RESTING COMFORTABLY IN BED. NO S/S OR C/O PAIN OR DISTRESS NOTED. SIDE RAILS UP X2, CALL LIGHT LEFT WITHIN REACH. WILL CONTINUE PLAN OF CARE.
--- NOTE | 2022-11-20 19:45 | NUR ---
RN OPENING NOTE PATIENT AWAKE IN BED WATCHING TV, PT ALERT/ORIENTED X 4, ABLE TO MAKE NEEDS KNOWN. PATIENT STABLE ON RA, NO S/S OF DISTRESS OR SOB NOTED, BREATHING EVEN AND UNLABORED. NO IV ACCESS DUE TO CLINICAL TRIAL STATUS. PATIENT HAS NO NEEDS AT THIS TIME. SAFETY MEASURES IN PLACE: CALL LIGHT WITHIN REACH, SIDE RAILS UP X 2, BED LOCKED IN LOWEST POSITION. WILL CONTINUE TO MONITOR PATIENT
[2022-11-20 20:00] VITALS: BP 139/88
--- NOTE | 2022-11-21 06:55 | NUR ---
RN CLOSING NOTE PATIENT SLEEPING IN BED, PT ALERT/ORIENTED X 4, ABLE TO MAKE NEEDS KNOWN. PATIENT STABLE ON RA, NO S/S OF DISTRESS OR SOB NOTED, BREATHING EVEN AND UNLABORED. NO IV ACCESS DUE TO CLINICAL TRIAL STATUS. PATIENT SLEPT WELL THROUGH THE NIGHT, NO BEHAVIORAL OR MEDICAL CHANGES. SAFETY MEASURES IN PLACE: CALL LIGHT WITHIN REACH, SIDE RAILS UP X 2, BED LOCKED IN LOWEST POSITION. WILL ENDORSE TO DAYSHIFT RN FOR CONTINUITY OF CARE
--- NOTE | 2022-11-21 07:28 | NUR ---
CT RN OPENING NOTES RECEIVED PT IN BED, AWAKE, AMBULATORY. A/O X 4, ABLE TO MAKE NEEDS KNOWN. NO C/O PAIN/DISCOMFORT AT THIS TIME. NO IV ACCESS. ON ROOM AIR, NO SIGN OF ACUTE DISTRESS. SAFETY MEASURES IN PLACE: BED LOCKED AND IN LOWEST POSITION, CALL LIGHT AND TRAY TABLE WITHIN EASY REACH, SIDE RAILS X 2. WILL CONTINUE TO MONITOR.
[2022-11-21 08:00] VITALS: BP 135/75
[2022-11-21] MEDS: HCTZ 25 MG PO SCH (09:49)
[2022-11-21] MEDS: AMLODIPINE 5 MG PO SCH (09:49)
[2022-11-21] MEDS: INVESTIGATIONAL MED RVP -30-001 PO SCH (09:50)
[2022-11-21 16:00] VITALS: BP 135/88
--- NOTE | 2022-11-21 18:50 | NUR ---
CT RN CLOSING NOTES PT RESTING IN BED AT THIS ITME. A/O X 4, ABLE TO MAKE NEEDS KNOWN. MBULATORY WITH STEADY GAIT. NO IV ACCESS P-ER CT PROTOCOL. ON ROOM AIR, NO SIGN OF ACUTE DISTRESS NOTED. NO BEHAVIORAL ISSUES EXHIBITED DURING SHIFT. SAFETY MEASURES IN PLACE: BED LOCKED AND IN LOWEST POSITION, CALL LIGHT AND TRAY TABLE WITHIN EASY REACH, SIDE RAILS UPX 2. WILL ENDORSE JUANJO TO HAND BOOTMAKER NURSE.
--- NOTE | 2022-11-21 19:56 | NUR ---
RN OPENING NOTE PATIENT AWAKE IN BED WATCHING TV, PT ALERT/ORIENTED X 4, ABLE TO MAKE NEEDS KNOWN. PATIENT STABLE ON RA, NO S/S OF DISTRESS OR SOB NOTED, BREATHING EVEN AND UNLABORED. NO IV ACCESS DUE TO CLINICAL TRIAL STATUS. PATIENT REQUESTING ATIVAN FOR ANXIETY, WILL ADMINISTER AFTER VITALS ARE TAKEN. SAFETY MEASURES IN PLACE: CALL LIGHT WITHIN REACH, SIDE RAILS UP X 2, BED LOCKED IN LOWEST POSITION. WILL CONTINUE TO MONITOR PATIENT
[2022-11-21 20:00] VITALS: BP 117/81
[2022-11-21] MEDS: LORAZEPAM 1 MG TABLET PO PRN (20:26)
--- NOTE | 2022-11-22 07:29 | NUR ---
CT RN OPENING NOTES RECEIVED PT IN BED, AWAKE, AMBULATORY. A/O X 4, ABLE TO MAKE NEEDS KNOWN. DENIES PAIN/DISCOMFORT AT THIS TIME. NO IV ACCESS. ON ROOM AIR, TOLERATING WELL, NO SIGN OF ACUTE DISTRESS. SAFETY MEASURES IN PLACE: BED LOCKED AND IN LOWEST POSITION, CALL LIGHT AND TRAY TABLE WITHIN EASY REACH, SIDE RAILS X 2. WILL CONTINUE TO MONITOR.
[2022-11-22 08:00] VITALS: BP 122/87
[2022-11-22] MEDS: AMLODIPINE 5 MG PO SCH (09:51)
[2022-11-22] MEDS: HCTZ 25 MG PO SCH (09:51)
[2022-11-22] MEDS: INVESTIGATIONAL MED RVP -30-001 PO SCH (09:52)
[2022-11-22] MEDS ORDERED: LORAZEPAM 1 MG TABLET PO PRN (12:00)
[2022-11-22] MEDS: LORAZEPAM 1 MG TABLET PO PRN (13:39)
--- NOTE | 2022-11-22 13:41 | NUR ---
RN NOTES PT VERBALIZED THAT SHE WANTS HER ANXIETY MEDICINE, ATIVAN 1MG 1 TAB PRN GIVEN AT 1339. WILL CONTINUE TO MONITOR.
--- NOTE | 2022-11-22 18:50 | NUR ---
CT RN CLOSING NOTES PT RESTING IN BED AT THIS ITME. A/O X 4, ABLE TO MAKE NEEDS KNOWN. AMBULATORY WITH STEADY GAIT. NO IV ACCESS PER CT PROTOCOL. ON ROOM AIR, NO SIGN OF ACUTE DISTRESS NOTED. NO BEHAVIORAL ISSUES EXHIBITED DURING SHIFT. SAFETY MEASURES IN PLACE: BED LOCKED AND IN LOWEST POSITION, CALL LIGHT AND TRAY TABLE WITHIN EASY REACH, SIDE RAILS X 2. WILL ENDORSE JUANJO TO BARREL DRAINER NURSE.
--- NOTE | 2022-11-22 19:30 | NUR ---
MS RN OPENING NOTE RECEIVED PATIENT IN BED, AWAKE, ALERT AND ORIENTED X4. ABLE TO COMMUNICATE NEEDS WITH THE STAFFS. AFEBRILE AND NOT IN ANY FORM OF ACUTE DISTRESS. BREATHING EVEN AND NON LABORED. LUNG SOUND CLEAR ON AUSCULTATION. NO C/O PAIN OR DISCOMFORT AT THIS TIME. ON CLINICAL TRIAL, MONITORED FOR LISA BEHAVIORAL CHANGES. SAFETY MEASURES IN PLACE. KEPT BED IN LOCKED AND IN LOW POSITION. SIDE RAILS UP X2. ADVISED TO USE THE CALL LIGHT WHEN IN NEED OF ASSISTANCE.
[2022-11-22 20:38] VITALS: BP 121/84
[2022-11-22] MEDS: ZOLPIDEM TARTRATE 10 MG TABLET PO PRN (20:57)
--- NOTE | 2022-11-23 06:30 | NUR ---
MS RN CLOSING NOTE PATIENT IN BED, ASLEEP BUT EASY TO AROUSE AND RESPONSIVE. ABLE TO COMMUNICATE NEEDS WITH THE STAFFS. AFEBRILE AND NOT IN ANY FORM OF ACUTE DISTRESS. BREATHING EVEN AND NON LABORED. LUNG SOUND CLEAR ON AUSCULTATION. NO C/O PAIN OR DISCOMFORT THROUGHOUT THE SHIFT. ON CLINICAL TRIAL, MONITORED FOR LISA BEHAVIORAL CHANGES. SAFETY MEASURES IN PLACE. KEPT BED IN LOCKED AND IN LOW POSITION. SIDE RAILS UP X2. ADVISED TO USE THE CALL LIGHT WHEN IN NEED OF ASSISTANCE. ALL NURSING NEEDS ATTENDED. ENDORSED TO INCOMING SHIFT FOR CONTINUITY OF CARE.
--- NOTE | 2022-11-23 07:15 | NUR ---
MS RN OPENING NOTE RECEIVED PATIENT IN BED, AWAKE, ALERT AND ORIENTED X4 AND ABLE TO COMMUNICATE. AFEBRILE AND NOT IN ANY FORM OF ACUTE DISTRESS. BREATHING EVEN AND NON LABORED. LUNG SOUND CLEAR ON AUSCULTATION. NO C/O PAIN OR DISCOMFORT AT THIS TIME. ON CLINICAL TRIAL, BEING MONITORED FOR LISA BEHAVIORAL CHANGES. SAFETY MEASURES IN PLACE. KEPT BED IN LOCKED AND IN LOW POSITION. SIDE RAILS UP X2. ADVISED TO USE THE CALL LIGHT WHEN IN NEED OF ASSISTANCE.
[2022-11-23 08:00] VITALS: BP 122/72
[2022-11-23] MEDS: INVESTIGATIONAL MED RVP -30-001 PO SCH (09:29)
[2022-11-23] MEDS: HCTZ 25 MG PO SCH (09:30)
[2022-11-23] MEDS: AMLODIPINE 5 MG PO SCH (09:30)
[2022-11-23 16:00] VITALS: BP 122/83
[2022-11-23] MEDS: LORAZEPAM 1 MG TABLET PO PRN (16:56)
--- NOTE | 2022-11-23 18:58 | NUR ---
MS RN CLOSING NOTE PATIENT IN BED, ASLEEP BUT EASY TO AROUSE AND RESPONSIVE. ABLE TO COMMUNICATE NEEDS. AFEBRILE AND NOT IN ANY FORM OF ACUTE DISTRESS. BREATHING EVEN AND NON LABORED. LUNG SOUND CLEAR ON AUSCULTATION. NO C/O PAIN OR DISCOMFORT THROUGHOUT THE SHIFT. ON CLINICAL TRIAL, MONITORED FOR LISA BEHAVIORAL CHANGES. SAFETY MEASURES IN PLACE. KEPT BED IN LOCKED AND IN LOW POSITION. SIDE RAILS UP X2. ADVISED TO USE THE CALL LIGHT WHEN IN NEED OF ASSISTANCE. ALL MEDS GIVEN AND NURSING NEEDS ATTENDED. ENDORSED TO INCOMING PROCESS ENG RN FOR JUANJO.
--- NOTE | 2022-11-23 19:36 | NUR ---
MS RN OPENING NOTES: RECEIVED PATIENT SLEEP IN BED COMFORTABLY, BED IN LOW POSITION, CALL LIGHTS WITHIN REACH, NJO COMPLAIN OF PAIN AND DISCOMFORT AT THIS TIME , ON ROOM AIR SATURATING WELL, PATIENT IS A/OX4 ABLE TO MAKE NEEDS KNOWN, PATIENT ON CLINICAL TRIAL, , NO CHANGES IN BEHAVIOR WAS OBSERVE, KEPT CLEAN AND DRY ALL NEEDS MET WILL CONTINUE TO MONITOR
[2022-11-23 20:00] VITALS: BP 103/69
--- NOTE | 2022-11-24 06:48 | NUR ---
MS RN CLOSING NOTES: PATIENT SLEEP IN BED COFORTABLY, AROUSABLE TO VERBAL STIMULI, BED IN LOW POSITION, CALL LIGHTS WITHIN REACH, NO COMPLAIN OF PAIN AND DISCOMFORT AT THIS TIME, ON ROOM AIR SATURATING WELL, PATIENT IS A/OX4 AMBULATORY, ABLE TO MAKE NEEDS KNOWN , ON CLINICAL TRIAL, NO CHANGES IN BEHAVIOR WAS OBSERVED, PATIENT KEPT CLEAN AND DRY ALL NEEDS MET, ENDORSE TO INCOMING SHIFT.
--- NOTE | 2022-11-24 07:25 | NUR ---
MS RN OPENING NOTE RECEIVED PATIENT IN BED, AWAKE, ALERT AND ORIENTED X4 AND ABLE TO COMMUNICATE. AFEBRILE AND NOT IN ANY FORM OF ACUTE DISTRESS. BREATHING EVENLY UNLABORED. LUNG SOUND CLEAR ON AUSCULTATION. NO C/O PAIN OR DISCOMFORT AT THIS TIME. ON CLINICAL TRIAL, BEING MONITORED FOR ANY BEHAVIORAL CHANGES. SAFETY MEASURES IN PLACE. KEPT BED IN LOCKED AND IN LOW POSITION. SIDE RAILS UP X2. ADVISED TO USE THE CALL LIGHT WHEN IN NEED OF ASSISTANCE.
[2022-11-24] MEDS: HCTZ 25 MG PO SCH (08:14)
[2022-11-24] MEDS: AMLODIPINE 5 MG PO SCH (08:14)
[2022-11-24 08:26] VITALS: BP 117/75
[2022-11-24] MEDS: INVESTIGATIONAL MED RVP -30-001 PO SCH (09:36)
[2022-11-24] MEDS: LORAZEPAM 1 MG TABLET PO PRN (15:56)
[2022-11-24 16:29] VITALS: BP 116/74
--- NOTE | 2022-11-24 19:00 | NUR ---
RN OPENING NOTES PT IS AWAKE IN BED. A/O X 4, ABLE TO MAKE NEEDS KNOWN. PT IN RA, TOLERATING WELL, BREATHING EVEN AND UNLABORED @ THIS TIME. SAFETY MEASURES IN PLACE, BED AT ITS LOWEST AND LOCKED POSITION, SIDE RAILS X 2, BEDSIDE TABLE AND CALL LIGHT IS EASY REACH. BED ALARM IS ON. WILL CONTINUE TO MONITOR PATIENT ACCORDINGLY.
--- NOTE | 2022-11-24 19:35 | NUR ---
MS RN CLOSING NOTE PATIENT IN BED, ASLEEP BUT EASY TO AROUSE AND RESPONSIVE. ABLE TO COMMUNICATE NEEDS. AFEBRILE AND NOT IN ANY FORM OF ACUTE DISTRESS. BREATHING EVEN AND UNLABORED. NO C/O PAIN OR DISCOMFORT THROUGHOUT THE SHIFT. ON CLINICAL TRIAL, MONITORED FOR LISA BEHAVIORAL CHANGES. SAFETY MEASURES IN PLACE. KEPT BED IN LOCKED AND IN LOW POSITION. SIDE RAILS UP X2. ADVISED TO USE THE CALL LIGHT WHEN IN NEED OF ASSISTANCE. ALL MEDS GIVEN AND NURSING NEEDS ATTENDED. ENDORSED TO INCOMING RN DIALYSIS RN FOR JUANJO.
[2022-11-24] MEDS: ZOLPIDEM TARTRATE 10 MG TABLET PO PRN (20:14)
[2022-11-24 20:25] VITALS: BP 122/84
--- NOTE | 2022-11-25 06:21 | NUR ---
RN CLOSING NOTES PT IS ASLEEP AND RESTING COMFORATBLY IN BED. A/O X 4, ABLE TO MAKE NEEDS KNOWN. PT IN RA, TOLERATING WELL, BREATHING EVEN AND UNLABORED @ THIS TIME. SAFETY MEASURES IN PLACE, BED AT ITS LOWEST AND LOCKED POSITION, SIDE RAILS X 2, BEDSIDE TABLE AND CALL LIGHT IS EASY REACH. BED ALARM IS ON. WILL CONTIINUE TO MONITOR PATIENT ACCORDINGLY.
[2022-11-25 07:00] VITALS: BP 103/68
--- NOTE | 2022-11-25 07:20 | NUR ---
RN NOTE RECEIVED PATIENT IN BED, AWAKE, A/O X4, VERBALLY RESPONSIVE, NO SIGNS OF ACUTE DISTRESS NOTED. NO C/O PAIN OR DISCOMFORT. STABLE ON ROOM AIR, NO SOB NOTED, BREATHING EVEN AND UNLABORED. PATIENT REMAINS ON CLINICAL TRIAL. NO IV ACCESS. WILL CONTINUE TO MONITOR FOR SAFETY AND BEHAVIOR.
[2022-11-25] MEDS: HCTZ 25 MG PO SCH (08:59)
[2022-11-25] MEDS: AMLODIPINE 5 MG PO SCH (08:59)
[2022-11-25] MEDS: INVESTIGATIONAL MED RVP -30-001 PO SCH (09:55)
--- NOTE | 2022-11-25 18:50 | NUR ---
RN CLOSING NOTE PATIENT IN BED, AWAKE, A/O X4, VERBALLY RESPONSIVE AND ABLE TO MAKE NEEDS KNOWN. NOT IN ANY FORM OF ACUTE DISTRESS. BREATHING EVEN AND NON LABORED. NO C/O PAIN OR DISCOMFORT THROUGHOUT THE SHIFT. REMAINS ON CLINICAL TRIAL, MONITORED FOR ANY BEHAVIORAL CHANGES. SAFETY MEASURES IN PLACE. KEPT BED IN LOCKED AND IN LOW POSITION. SIDE RAILS UP X2. ADVISED TO USE THE CALL LIGHT WHEN IN NEED OF ASSISTANCE. ALL MEDS GIVEN AND NURSING NEEDS ATTENDED. WILL ENDORSE TO LEATHER DRIER FOR CONTINUITY OF CARE.
--- NOTE | 2022-11-25 19:30 | NUR ---
MS RN OPENING NOTES - RECEIVED PATIENT SLEEPING IN BED, EASY TO AROUSE. A/O X4. BREATHING EVEN AND NON-LABORED ON ROOM AIR. NOT IN ACUTE DISTRESS. DENIES PAIN AT THIS TIME. NO IV ACCESS, ON CLINICAL TRIAL. SAFETY PRECAUTIONS IN PLACE: BED LOCKED AND IN LOW POSITION, SIDE RAILS UP X2, CALL LIGHT WITHIN REACH. WILL CONTINUE PLAN OF CARE AND MONITOR BEHAVIOR.
[2022-11-25 20:00] VITALS: BP 114/85
--- NOTE | 2022-11-26 07:01 | NUR ---
MS RN CLOSING NOTES - PATIENT AWAKE IN BED. STABLE THROUGHOUT THE NIGHT. NO SOB OR NOTED, TOLERATING ROOM AIR WELL. NO C/O PAIN OR DISCOMFORT AT THIS TIME. AFEBRILE. ALL NEEDS ATTENDED AND ANTICIPATED. NO BEHAVIOR ISSUES NOTED. SAFETY MEASURES MAINTAINED. WILL ENDORSE TO NEXT SHIFT FOR JUANJO.
[2022-11-26 08:00] VITALS: BP 112/77
[2022-11-26] MEDS: HCTZ 25 MG PO SCH (08:52)
[2022-11-26] MEDS: AMLODIPINE 5 MG PO SCH (08:52)
[2022-11-26] MEDS: INVESTIGATIONAL MED RVP -30-001 PO SCH (10:00)
[2022-11-26] MEDS: LORAZEPAM 1 MG TABLET PO PRN (15:18)
[2022-11-26 16:00] VITALS: BP 119/81
[2022-11-26 20:00] VITALS: BP 112/80
--- NOTE | 2022-11-26 20:44 | NUR ---
RN OPENING NOTE PATIENT AWAKE IN BED. A/OX4. NO S/S OF DISTRESS, BREATHING WITHOUT DIFFICULTY ON ROOM AIR. SAFETY MEASURES IN PLACE: BED LOCKED IN PLACE AND AT LOWEST POSITION, RAILS UP X2, CALL BUSBY WITHIN REACH. WILL CONTINUE TO MONITOR PATIENT.
--- NOTE | 2022-11-27 06:54 | NUR ---
RN CLOSING NOTE PATIENT ASLEEP IN BED. A/OX4. NO S/S OF DISTRESS, BREATHING WITHOUT DIFFICULTY ON ROOM AIR. PATIENT IS CLEAN, NON-MALODOROUS; PATIENT HAS BEEN COOPERATIVE AND IN PLEASANT MOOD. SAFETY MEASURES IN PLACE: BED LOCKED AND AT LOWEST POSITION, RAILS UP X2. CALL BUSBY WITHIN REACH. WILL ENDORSE TO DAY SHIFT FOR JUANJO.
--- NOTE | 2022-11-27 07:35 | NUR ---
RN OPENING NOTE- PATIENT AWAKE IN ROOM. A/OX4. NO S/S OF DISTRESS, BREATHING WITHOUT DIFFICULTY ON ROOM AIR. NO EPS, DENIES SI HI [facility], SAFETY MEASURES IN PLACE: BED LOCKED AND AT LOWEST POSITION, RAILS UP X2. CALL BUSBY WITHIN REACH. MONITOR / ASSIST
[2022-11-27 08:00] VITALS: BP 125/87
[2022-11-27] MEDS: AMLODIPINE 5 MG PO SCH (09:13)
[2022-11-27] MEDS: HCTZ 25 MG PO SCH (09:13)
[2022-11-27] MEDS: INVESTIGATIONAL MED RVP -30-001 PO SCH (10:23)
[2022-11-27 16:00] VITALS: BP 116/79
[2022-11-27] MEDS: LORAZEPAM 1 MG TABLET PO PRN (18:14)
--- NOTE | 2022-11-27 18:14 | NUR ---
RN NOTE- C/O ANXIETY. ATIVAN 1MG ADMINISTERD
--- NOTE | 2022-11-27 18:38 | NUR ---
RN CLOSING NOTE- PATIENT AWAKE IN ROOM. A/OX4. NO S/S OF DISTRESS, BREATHING WITHOUT DIFFICULTY ON ROOM AIR. NO EPS, DENIES SI HI [facility], SAFETY MEASURES IN PLACE: BED LOCKED AND AT LOWEST POSITION, RAILS UP X2. CALL BUSBY WITHIN REACH. MONITOR / ASSIST
--- NOTE | 2022-11-27 19:20 | NUR ---
MS RN OPENING NOTE PATIENT IS SITTING IN HER BED. SHE IS ALERT AND ORIENTED, AO X 4. SHE IS ON RA, TOLERATED WELL. NO S/S OF DISTRESS OR SOB. PATIENT IS ON CLINICAL TRIAL , NO IV ACCESS. PATIENT DENIES OF HAVING PAIN OR DISCOMFORT, NOR ANY BEHAVIORAL CHANGES AT THIS MOMENT. SAFETY MEASURES ARE IN PLACE: BED IN LOWEST AND LOCKED POSITION; CALL LIGHT AND TABLE ARE WITHIN REACH; SIDE RAILS UP X 2. WILL CONTINUE MONITORING THE PATIENT AND PROVIDE THE CARE PATIENT NEEDS.
[2022-11-27 20:00] VITALS: BP 125/79
--- NOTE | 2022-11-28 06:52 | NUR ---
MS RN CLOSING NOTE PATIENT IS IN BED SLEEPING, EASILY BEING AROUSED. SHE IS ALERT AND ORIENTED, AO X 4. SHE IS ON RA, TOLERATED WELL. NO S/S OF DISTRESS OR SOB. PATIENT IS ON CLINICAL TRIAL , NO IV ACCESS. PATIENT DENIES OF HAVING PAIN OR DISCOMFORT, NOR ANY BEHAVIORAL CHANGES THROUGHOUT THE SHIFT. SAFETY MEASURES ARE IN PLACE: BED IN LOWEST AND LOCKED POSITION; CALL LIGHT AND TABLE ARE WITHIN REACH; SIDE RAILS UP X 2. WILL ENDORSE NEXT SHIFT NURSE FOR CONTINUING PATIENT CARE.
--- NOTE | 2022-11-28 07:49 | NUR ---
RN OPENING NOTE, AO X 4. SHE IS ON RA, TOLERATED WELL. NO S/S OF DISTRESS OR SOB. PATIENT IS ON CLINICAL TRIAL , NO IV ACCESS. PATIENT DENIES OF HAVING PAIN OR DISCOMFORT, NOR ANY BEHAVIORAL CHANGES AT THIS MOMENT. DENIES SI HI [facility], SAFETY MEASURES ARE IN PLACE: BED IN LOWEST AND LOCKED POSITION; CALL LIGHT AND TABLE ARE WITHIN REACH; SIDE RAILS UP X 2. WILL CONTINUE MONITORING THE PATIENT AND PROVIDE THE CARE PATIENT NEEDS. MONITOR / ASSIST
[2022-11-28 09:02] VITALS: BP 99/71
[2022-11-28] MEDS: HCTZ 25 MG PO SCH (09:02)
[2022-11-28] MEDS: AMLODIPINE 5 MG PO SCH (09:03)
[2022-11-28] MEDS: INVESTIGATIONAL MED RVP -30-001 PO SCH (09:55)
[2022-11-28 17:00] VITALS: BP 117/81
--- NOTE | 2022-11-28 18:48 | NUR ---
RN CLOSING NOTE- UNCHANGED, AO X 4. SHE IS ON RA, TOLERATED WELL. NO S/S OF DISTRESS OR SOB. PATIENT IS ON CLINICAL TRIAL , NO IV ACCESS. PATIENT DENIES OF HAVING PAIN OR DISCOMFORT, NOR ANY BEHAVIORAL CHANGES AT THIS MOMENT. DENIES SI HI [facility], SAFETY MEASURES ARE IN PLACE: BED IN LOWEST AND LOCKED POSITION; CALL LIGHT AND TABLE ARE WITHIN REACH; SIDE RAILS UP X 2. WILL CONTINUE MONITORING THE PATIENT AND PROVIDE THE CARE PATIENT NEEDS. MONITOR / ASSIST
--- NOTE | 2022-11-28 19:05 | NUR ---
MS RN OPENING NOTE PATIENT IS IN BED SLEEPING, EASILY BEING AROUSED. SHE IS ALERT AND ORIENTED, AO X 4. SHE IS ON RA, TOLERATED WELL. NO S/S OF DISTRESS OR SOB. PATIENT IS ON CLINICAL TRIAL , NO IV ACCESS. PATIENT DENIES OF HAVING PAIN OR DISCOMFORT, NOR ANY BEHAVIORAL CHANGES AT THIS MOMENT. WILL HOLD PATIENT'S PRN MEDICATION LORAZEPAM AND AMBIEN AT 2100 TONIGHT. PATIENT WILL START TO BE NPO AT 2200 TONIGHT. INSTRUCTED THE PATIENT DO NOT TAKE ANYTHING BY MOUTH AFTER 2200 TONIGHT; PATIENT VERBALIZED UNDERSTANDING. SAFETY MEASURES ARE IN PLACE: BED IN LOWEST AND LOCKED POSITION; CALL LIGHT AND TABLE ARE WITHIN REACH; SIDE RAILS UP X 2. WILL CONTINUE MONITORING THE PATIENT AND PROVIDE THE CARE PATIENT NEEDS.
[2022-11-28 20:00] VITALS: BP 109/79
[2022-11-29 07:00] VITALS: BP 124/86
--- NOTE | 2022-11-29 07:18 | NUR ---
MS RN CLOSING NOTE PATIENT IS IN BED SLEEPING, EASILY BEING AROUSED. SHE IS ALERT AND ORIENTED, AO X 4. SHE IS ON RA, TOLERATED WELL. NO S/S OF DISTRESS OR SOB. PATIENT IS ON CLINICAL TRIAL , NO IV ACCESS. PATIENT DENIES OF HAVING PAIN OR DISCOMFORT, NOR ANY BEHAVIORAL CHANGES THROUGHOUT THE SHIFT. PATIENT'S PRN MEDICATION LORAZEPAM AND AMBIEN WERE HELD AT 2100 DURING THE SHIFT. PATIENT STARTED ON NPO SINCE LAST NIGHT 2200. SAFETY MEASURES ARE IN PLACE: BED IN LOWEST AND LOCKED POSITION; CALL LIGHT AND TABLE ARE WITHIN REACH; SIDE RAILS UP X 2. ENDORSED NEXT SHIFT NURSE FOR CONTINUING PATIENT CARE.
--- NOTE | 2022-11-29 08:04 | NUR ---
RN OPENING NOTE- UNCHANGED, CURRENTLY NPO FOR DR AC. / TESTING. PATIENT AWAKE IN ROOM. A/OX4. NO S/S OF DISTRESS, BREATHING WITHOUT DIFFICULTY ON ROOM AIR. NO EPS, DENIES SI HI [facility], SAFETY MEASURES IN PLACE: BED LOCKED AND AT LOWEST POSITION, RAILS UP X2. CALL BUSBY WITHIN REACH. MONITOR / ASSIST
[2022-11-29] MEDS: AMLODIPINE 5 MG PO SCH (08:48)
[2022-11-29] MEDS: HCTZ 25 MG PO SCH (08:48)
[2022-11-29] MEDS: INVESTIGATIONAL MED RVP -30-001 PO SCH (09:32)
[2022-11-29] MEDS ORDERED: LORAZEPAM 1 MG TABLET PO PRN (12:01)
[2022-11-29 16:00] VITALS: BP 107/73
--- NOTE | 2022-11-29 18:39 | NUR ---
RN CLOSING NOTE- NPO FOR DR AC BEGINNING AT 220 TONIGHT,. / TESTING. PATIENT AWAKE IN ROOM. A/OX4. NO S/S OF DISTRESS, BREATHING WITHOUT DIFFICULTY ON ROOM AIR. NO EPS, DENIES SI HI [facility], SAFETY MEASURES IN PLACE: BED LOCKED AND AT LOWEST POSITION, RAILS UP X2. CALL BUSBY WITHIN REACH. MONITOR / ASSIST
[2022-11-29 20:00] VITALS: BP 107/70
--- NOTE | 2022-11-29 20:34 | NUR ---
MS RN OPENING NOTES RECEIVED PATIENT IN BED, ON MODERATE HIGH BACK REST POSITION.A/O X 4 NO CONTRAPTIONS NOTED. ON CLINICAL TRIAL. INSTRUCTED TO HAVE NPO AT 10 PM. NO COMPLAIN OF PAIN OR ANY DISCOMFORT AT THIS TIME. KEPT SIDE RAILS UP X 2 ALL THE TIME, KEPT BED ON LOWER LOCKED POSITION. SAFETY MEASURES MAINTAINED. WILL CONTINUE TO MONITOR
--- NOTE | 2022-11-29 22:00 | NUR ---
RN NOTES PATIENT ON NPO FOR LAB WORKS TOMR. PATIENT INSTRUCTED TO DO NOT DRINK OR EAT ANYTHING STARTING 2200 TODAY. WILL CONTINUE TO MONITOR
--- NOTE | 2022-11-30 06:43 | NUR ---
RN MS CLOSING NOTES PATIENT IS IN BED, AWAKE. ON MODERATE HIGH BACK REST POSITION. A/O X 4 MAINTAINED ON NPO FOR LAB WORKS NEEDED FOR CLINICAL TRIAL. ABLE TO VERBALIZED NEEDS. NO COMPLAIN OF PAIN OR ANY DISCOMFORT AT THIS TIME. ALL NEEDS ATTENDED. KEPT BED ON LOWER LOCKED POSITION; KEPT SIDE RAILS UP X 2 ALL THE TIME. SAFETY MEASURES MAINTAINED. WILL ENDORSED TO AM SHIFT FOR JUANJO.
[2022-11-30 07:00] VITALS: BP 112/75
--- NOTE | 2022-11-30 07:50 | NUR ---
RN OPENING NOTE PATIENT AWAKE IN BED RESTING, A/O X 4. NO S/S OF PAIN NOTED AT THIS TIME. ON ROOM AIR, BREATHING EVEN UNLABORED, NO DISTRESS OR SHORTNESS OF BREATH NOTED AT THIS TIME. NO IV ACCESS, CLINICAL TRIAL PATIENT. FALL AND SAFETY MEASURES IN PLACE, BED IN LOW AND LOCK POSITION, CALL LIGHT AND TABLE WITHIN EASY REACH, SIDE RAILS UP X2. WILL CONTINUE TO MONITOR.
[2022-11-30] MEDS: [UNRECOGNIZED DRUG - REMARK] PO SCH (09:15)
--- NOTE | 2022-11-30 09:15 | NUR ---
RN NOTE CLARIFICATION OF PATIENT NPO WAS MADE, PATIENT IS NPO BUT INVESTIGATIONAL MEDS ARE OK TO GIVE, MEDICATION ADMINISTERED. CHARGE NURSE AWARE.
[2022-11-30] MEDS: AMLODIPINE 5 MG PO SCH (14:13)
[2022-11-30] MEDS: HCTZ 25 MG PO SCH (14:13)
--- NOTE | 2022-11-30 14:15 | NUR ---
RN NOTE PATIENT'S HOME MEDICATIONS WERE GIVEN LATE BECAUSE PATIENT WAS NPO.
[2022-11-30 16:00] VITALS: BP 121/88
[2022-11-30] MEDS: LORAZEPAM 1 MG TABLET PO PRN (16:39)
--- NOTE | 2022-11-30 18:31 | NUR ---
RN CLOSING NOTE PATIENT AWAKE IN BED RESTING, A/O X 4. NO S/S OF PAIN NOTED AT THIS TIME. ON ROOM AIR, BREATHING EVEN UNLABORED, NO DISTRESS OR SHORTNESS OF BREATH NOTED AT THIS TIME. NO IV ACCESS, CLINICAL TRIAL PATIENT. FALL AND SAFETY MEASURES IN PLACE, BED IN LOW AND LOCK POSITION, CALL LIGHT AND TABLE WITHIN EASY REACH, SIDE RAILS UP X2. ALL NEEDS ATTENDED AND ANTICIPATED. WILL ENDORSE TO SOUND PRINTER NURSE.
--- NOTE | 2022-11-30 19:24 | NUR ---
MS RN OPENING NOTES RECEIVED PATIENT IN BED, ON MODERATE HIGH BACK REST POSITION.A/O X 4 NO CONTRAPTIONS NOTED. ON CLINICAL TRIAL. ON REGULAR DIET. NO COMPLAIN OF PAIN OR ANY DISCOMFORT AT THIS TIME. KEPT SIDE RAILS UP X 2 ALL THE TIME, KEPT BED ON LOWER LOCKED POSITION. SAFETY MEASURES MAINTAINED. WILL CONTINUE TO MONITOR
[2022-11-30 20:00] VITALS: BP 117/77
--- NOTE | 2022-12-01 06:40 | NUR ---
WINDOW FRAMER CLOSING NOTES PATIENT IS IN BED, A/O X 4 NO CONTRAPTIONS NOTED. ABLE TO VERBALIZED CONCERNS. NO EPISODES OF PAIN OR ANY DISCOMFORT AT THIS TIME. NO BEHAVIORAL CHANGES NOTED DURING THE SHIFT.NO PAIN OR DISCOMFORT NOTED AT THIS TIME. ON CLINICAL TRIAL REPORT ANY BEHAVIORAL CHANGES. ALL NEEDS ATTENDED, KEPT BED ON LOWER LOCKED POSITION, KEPT SIDE RAILS X 2 UP ALL THE TIME. SAFETY MEASURES MAINTAINED. WILL ENDORSED TO AM SHIFT FOR JUANJO. '
[2022-12-01 07:00] VITALS: BP 130/88
[2022-12-01] MEDS: HCTZ 25 MG PO SCH (08:04)
[2022-12-01] MEDS: AMLODIPINE 5 MG PO SCH (08:04)
[2022-12-01] MEDS: [UNRECOGNIZED DRUG - REMARK] PO SCH (08:08)
--- NOTE | 2022-12-01 18:52 | NUR ---
RN CLOSING NOTE PATIENT WENT OUT AND HAVEN'T COMES BACK, A/O X 4. PATIENT DID NOT COMPLAIN OF PAIN DURING SHIFT. ON ROOM AIR, BREATHING EVEN UNLABORED, NO DISTRESS OR SHORTNESS OF BREATH NOTED DURING THE SHIFT. NO IV ACCESS, CLINICAL TRIAL PATIENT. FALL AND SAFETY MEASURES IN PLACE, BED IN LOW AND LOCK POSITION, CALL LIGHT AND TABLE WITHIN EASY REACH, SIDE RAILS UP X2. ALL NEEDS ATTENDED AND ANTICIPATED. WILL ENDORSE TO PRE PRESS OPERATOR NURSE.
--- NOTE | 2022-12-01 19:50 | NUR ---
MS RN OPENING NOTE RECEIVED PATIENT IN BED; AWAKE, A/O X 4. BED IN LOW POSITION, CALL LIGHTS WITHIN EASY REACH. NO COMPLAINTS OF ANY PAIN AND DISCOMFORT AT THIS TIME. ON ROOM AIR SATURATING WELL. ABLE TO MAKE NEEDS KNOWN, PATIENT ON CLINICAL TRIAL. NO CHANGES IN BEHAVIOR WAS OBSERVED. KEPT CLEAN AND DRY. ALL NEEDS MET. WILL CONTINUE TO MONITOR
[2022-12-01 20:00] VITALS: BP 124/86
[2022-12-01 20:46] VITALS: BP 124/88
[2022-12-01] MEDS: ZOLPIDEM TARTRATE 10 MG TABLET PO PRN (21:09)
--- NOTE | 2022-12-02 06:21 | NUR ---
MS RN CLOSING NOTE PATIENT IN BED; ASLEEP COMFORTABLY, AROUSABLE TO VERBAL STIMULI, BED IN LOW POSITION, CALL LIGHTS WITHIN EASY REACH. NO COMPLAINTS OF PAIN AND DISCOMFORT AT THIS TIME. STABLE ON ROOM AIR; SATURATING WELL. PATIENT IS A/O X4; AMBULATORY. ON CLINICAL TRIAL. NO CHANGES IN BEHAVIOR WAS OBSERVED. PATIENT KEPT CLEAN AND DRY. ALL NEEDS MET. ENDORSED TO INCOMING SHIFT FOR JUANJO.
--- NOTE | 2022-12-02 07:45 | NUR ---
MS RN OPENING NOTE RECEIVED PATIENT IN BED; AWAKE, ASLEEP EASILY ROUSED A/O X 4. ON ROOM AIR SATURATING WELL. ABLE TO MAKE NEEDS KNOWN, DENIES PAIN AND DISCOMFORT AT THIS TIME. SAFETY MEASURES IN PLACE, WILL CONT WITH PLAN OF CARE DURING SHIFT.
[2022-12-02] MEDS: [UNRECOGNIZED DRUG - REMARK] PO SCH ×2 (08:00→09:34)
[2022-12-02] MEDS: HCTZ 25 MG PO SCH (09:00)
[2022-12-02] MEDS: AMLODIPINE 5 MG PO SCH (09:00)
--- NOTE | 2022-12-02 09:30 | NUR ---
JEANNA NOTES: HOME BP MEDS HELD DUE TO LOW BP= 108/79 Addendum: 12/02/22 at 0942 by JUAN MALIK RN ID WAS MISSING FROM [place], PANAMA HAT BLOCKER WAS IN MEETING, ID WAS IN THE SAFE, PANAMA HAT BLOCKER OFFICE, ADMINISTERED ORDERED.
[2022-12-02] MEDS: LORAZEPAM 1 MG TABLET PO PRN (16:58)
--- NOTE | 2022-12-02 17:05 | NUR ---
RN NOTES: PT ASKED FOR ATIVAN, STATES "SHE FEELS ANXIOUS", WILL MEDICATE ORDERED.
--- NOTE | 2022-12-02 19:30 | NUR ---
MS RN OPENING NOTE RECEIVED PATIENT AWAKE IN BED . PATIENT IS A/O X 4. NO S/S OF PAIN NOTED AT THIS TIME. ON ROOM AIR, BREATHING EVEN UNLABORED, NO DISTRESS OR SHORTNESS OF BREATH NOTED AT THIS TIME. NO IV ACCESS, CLINICAL TRIAL PATIENT. REMIND THE PATIENT TO USE CALL LIGHT FOR ANY ASSISTANCE. ALL SAFETY MEASURES IN PLACE, BED IN LOW AND LOCK POSITION, CALL LIGHT AND TABLE WITHIN EASY REACH, SIDE RAILS UP X2. WILL CONTINUE TO MONITOR.
[2022-12-02 20:00] VITALS: BP 113/74
--- NOTE | 2022-12-03 06:31 | NUR ---
MS RN CLOSING NOTE PATIENT SLEEPS IN BED . OPENS HER EYES UPON CALLING HER NAME. PATIENT IS A/O X 4. NO S/S OF PAIN NOTED AT THIS TIME. ON ROOM AIR, BREATHING EVEN UNLABORED, NO DISTRESS OR SHORTNESS OF BREATH NOTED AT THIS TIME. NO IV ACCESS, CLINICAL TRIAL PATIENT. REMIND THE PATIENT TO USE CALL LIGHT FOR ANY ASSISTANCE. ALL SAFETY MEASURES IN PLACE, BED IN LOW AND LOCK POSITION, CALL LIGHT AND TABLE WITHIN EASY REACH, SIDE RAILS UP X2. WILL ENDORSE FOR JUANJO.
--- NOTE | 2022-12-03 07:20 | NUR ---
MS RN OPENING NOTES PATIENT IN BED ALERT ORIENTED X 4, NO ACUTE DISTRESS NOTED, BREATHING UNLABORED. NO SOB NOTED.. SAFETY MEASURES IN PLACE, CALL LIGHT WITHIN REACH. WILL CONTINUE TO MONITOR ACCORDINGLY
[2022-12-03] MEDS: [UNRECOGNIZED DRUG - REMARK] PO SCH (07:57)
[2022-12-03] MEDS: HCTZ 25 MG PO SCH (08:59)
[2022-12-03] MEDS: AMLODIPINE 5 MG PO SCH (08:59)
--- NOTE | 2022-12-03 18:51 | NUR ---
MS RN CLOSING NOTES PATIENT IN BED ALERT ORIENTED X 4, NO ACUTE DISTRESS NOTED, BREATHING UNLABORED. NO SOB NOTED. NEEDS ATTENDED AND ANTICIPATED. SAFETY MEASURES IN PLACE, CALL LIGHT WITHIN REACH. WILL ENDORSE TO NIGHT NURSE FOR CONTINUITY OF CARE
[2022-12-03 20:00] VITALS: BP 117/73
[2022-12-03] MEDS: ZOLPIDEM TARTRATE 10 MG TABLET PO PRN (20:47)
--- NOTE | 2022-12-03 21:50 | NUR ---
RN NOTES PATIENT COMPLAINS OF INSOMNIA, REQUESTED AMBIEN. PRN AMBIEN 10 MG PO GIVEN ORDERED FOR INSOMNIA PER PATIENT'S REQUEST AT 2046.
--- NOTE | 2022-12-04 06:32 | NUR ---
MS RN CLOSING NOTE PATIENT SLEEPS IN BED . OPENS HER EYES UPON CALLING HER NAME.PATIENT IS A/O X 4. NO S/S OF PAIN NOTED AT THIS TIME. ON ROOM AIR, BREATHING EVEN UNLABORED, NO DISTRESS OR SHORTNESS OF BREATH NOTED AT THIS TIME. NO IV ACCESS, CLINICAL TRIAL PATIENT. REMIND THE PATIENT TO USE CALL LIGHT FOR ANY ASSISTANCE. ALL SAFETY MEASURES IN PLACE, BED IN LOW AND LOCK POSITION, CALL LIGHT AND TABLE WITHIN EASY REACH, SIDE RAILS UP X2. WILL ENDORSE FOR JUANJO.
--- NOTE | 2022-12-04 07:25 | NUR ---
RN OPENING NOTES RECEIVED PATIENT IN BED, AWAKE. A/O X 4, ABLE TO MAKE NEEDS KNOWN, CALM. NO C/O PAIN/DISCOMFORT AT THIS TIME. NO IV ACCESS. ON ROOM AIR, NO SIGN OF ACUTE RESPIRATORY DISTRESS. SAFETY MEASURES IN PLACE: BED LOCKED AND IN LOWEST POSITION, CALL LIGHT AND TRAY TABLE WITHIN EASY REACH, SIDE RAILS X 2. WILL CONTINUE TO MONITOR.
[2022-12-04] MEDS: [UNRECOGNIZED DRUG - REMARK] PO SCH (07:59)
[2022-12-04 08:00] VITALS: BP 116/81
[2022-12-04] MEDS: HCTZ 25 MG PO SCH (08:03)
[2022-12-04] MEDS: AMLODIPINE 5 MG PO SCH (08:03)
[2022-12-04 16:00] VITALS: BP 112/81
--- NOTE | 2022-12-04 18:38 | NUR ---
RN CLOSING NOTES PATIENT RESTING IN BED. A/O X 4, ABLE TO MAKE NEEDS KNOWN. DID NOT C/O PAIN/DISCOMFORT WITHIN THE SHIFT. NO IV ACCESS. ON ROOM AIR, TOLERATED WELL. NEEDS ATTENDED. NO CHANGES IN BEHAVIOR NOTED. SAFETY MEASURES IN PLACE: BED LOCKED AND IN LOWEST POSITION, CALL LIGHT AND TRAY TABLE WITHIN EASY REACH, SIDE RAILS X 2. WILL ENDORSE JUANJO TO REHAB/PRE VOCATIONAL COUNSELOR.
[2022-12-05 07:00] VITALS: BP 123/69
--- NOTE | 2022-12-05 07:52 | NUR ---
RN OPENING NOTE- PATIENT ASLEEP IN ROOM. EASILY AWAKENED, A/OX4. NO S/S OF DISTRESS, BREATHING WITHOUT DIFFICULTY ON ROOM AIR. NO EPS, DENIES SI HI [facility], SAFETY MEASURES IN PLACE: BED LOCKED AND AT LOWEST POSITION, RAILS UP X2. CALL BUSBY WITHIN REACH. MONITOR / ASSIST
[2022-12-05] MEDS: [UNRECOGNIZED DRUG - REMARK] PO SCH (08:02)
[2022-12-05] MEDS: AMLODIPINE 5 MG PO SCH (09:27)
[2022-12-05] MEDS: HCTZ 25 MG PO SCH (09:27)
[2022-12-05 16:00] VITALS: BP 120/77
--- NOTE | 2022-12-05 18:36 | NUR ---
RN CLOSING NOTE- UNCHANGED, AWAKE A/OX4. NO S/S OF DISTRESS, BREATHING WITHOUT DIFFICULTY ON ROOM AIR. NO EPS, DENIES SI HI [facility], NO AMBIEN OR ATIVAN THIS NOC SHIFT PER MD ORDERS/PROTOCOL. SAFETY MEASURES IN PLACE: BED LOCKED AND AT LOWEST POSITION, RAILS UP X2. CALL BUSBY WITHIN REACH. MONITOR / ASSIST
[2022-12-05 20:00] VITALS: BP 106/68
--- NOTE | 2022-12-05 20:00 | NUR ---
RN MS OPENING NOTES RECEIVED PATIENT IN BED, AWAKE AND COHERENT A/O X 4. ON MODERATE HIGH BACK REST POSITION. ON CLINICAL TRIAL. ATIVAN AND AMBIEN IS ON HOLD TONIGHT. AMBULATOR. ON ROOM AIR TOLERATING WELL. NO CONTRAPTIONS NOTED. KEPT BED ON LOWER LOCKED POSITION. KEPT SIDE RAILS UP X 2 ALL THE TIME. SAFETY MEASURES MAINTAINED. WILL CONTINUE TO MONITOR ANY BEHAVIORAL CHANGES.
--- NOTE | 2022-12-06 06:39 | NUR ---
RN CLOSING NOTES PATIENT IS IN BED, ASLEEP ON MODERATE HIGH BACK REST POSITION. ON CLINICAL TRIAL. NO CONTRAPTIONS NOTED. AMBULATES, NO PAIN OR SHORTNESS OF BREATH NOTED AT THIS TIME. NO BEHAVIORAL CHANGES DURING MY SHIFT. ALL NEEDS ATTENDED. KEPT BED ON LOWER LOCK POSITION. KEPT CALL LIGHT WITHIN AT REACH. SAFETY PRECAUTIONS IN PLACED. WILL ENDORSED TO AM SHIFT FOR JUANJO.
--- NOTE | 2022-12-06 08:00 | NUR ---
MS RN OPENING NOTE Patient in bed, awake. A/O x 4, able to make need known. On room air, breathing evenly and unlabored. No SOB or s/s of distress noted. No IV access due to clinical trial status. Safety precautions in place: bed in low, locked position; siderails up x 2; call light within reach. Will continue to monitor.
[2022-12-06] MEDS: [UNRECOGNIZED DRUG - REMARK] PO SCH (08:17)
[2022-12-06] MEDS: HCTZ 25 MG PO SCH (08:23)
[2022-12-06] MEDS: AMLODIPINE 5 MG PO SCH (08:23)
[2022-12-06 09:00] VITALS: BP 126/93
[2022-12-06 16:00] VITALS: BP 104/74
--- NOTE | 2022-12-06 19:41 | NUR ---
MS RN OPENING NOTE Patient in bed, resting. A/O x 4, able to make need known. On room air, breathing evenly and unlabored. No SOB or s/s of distress noted. No IV access due to clinical trial status. No adverse reactions to meds noted. Safety precautions in place: bed in low, locked position; siderails up x 2; call light within reach. Will endorse to shift engineer nurse for JUANJO.
[2022-12-06 20:00] VITALS: BP 111/79
--- NOTE | 2022-12-06 20:36 | NUR ---
MS RN OPENING NOTES RECEIVED PATIENT IN BED, A/O X 4 ABLE TO MADE NEEDS KNOWN. ON MODERATE HIGH BACK REST POSITION. ON CLINICAL TRIAL OBSERVATION. NO CONTRAPTIONS NOTED. NO S/S OF PAIN AND SHORTNESS OF BREATH. NO BEHAVIORAL CHANGES NOTED AT THIS TIME. KEPT BED ON LOWER LOCKED POSITION. KEPT SIDE RAILS X 3 ALL THE TIME. KEPT SIDE RAILS UP ALL THE TIME. WILL CONTINUE TO MONITOR.
[2022-12-07 08:00] VITALS: BP 118/82
--- NOTE | 2022-12-07 08:08 | NUR ---
RN OPENING NOTES PATIENT IS IN BED, ASLEEP ON MODERATE HIGH BACK REST POSITION. ON CLINICAL TRIAL. NO CONTRAPTIONS NOTED. AMBULATES, NO PAIN OR SHORTNESS OF BREATH NOTED AT THIS TIME. KEPT BED ON LOWER LOCK POSITION. KEPT CALL LIGHT WITHIN AT REACH. SAFETY PRECAUTIONS IN PLACED. WILL CONTINUE TO MONITOR
[2022-12-07] MEDS: [UNRECOGNIZED DRUG - REMARK] PO SCH (08:12)
[2022-12-07] MEDS: HCTZ 25 MG PO SCH (08:15)
[2022-12-07] MEDS: AMLODIPINE 5 MG PO SCH (08:15)
--- NOTE | 2022-12-07 14:00 | NUR ---
RN NOTE RECEIVED PATIENT FORM JEANNA CASEY, PATIENT SITTING IN BED, AWAKE, A/O X4, VERBALLY RESPONSIVE. LISTENING TO MUSIC. ON ROOM AIR, NO SOB NOTED. SAFETY MEASURE MAINTAINED. WILL CONTINUE TO MONITOR PATIENT.
[2022-12-07 16:12] VITALS: BP 128/80
[2022-12-07] MEDS: ACETAMINOPHEN ES 500 MG TABLET PO PRN (16:28)
--- NOTE | 2022-12-07 16:28 | NUR ---
RN NOTE PATIENT C/O BACK PAIN, TYLENOL ES 2 TABS GIVEN ORDERED.
--- NOTE | 2022-12-07 18:46 | NUR ---
RN CLOSING NOTE PATIENT IN BED, AWAKE, A/O X4, VERBALLY RESPONSIVE AND ABLE TO MAKE NEEDS KNOWN. NOT IN ANY FORM OF ACUTE DISTRESS. BREATHING EVEN AND NON LABORED. NO C/O PAIN OR DISCOMFORT THROUGHOUT THE SHIFT. REMAINS ON CLINICAL TRIAL, MONITORED FOR ANY BEHAVIORAL CHANGES. SAFETY MEASURES IN PLACE. KEPT BED IN LOCKED AND IN LOW POSITION. SIDE RAILS UP X2. ADVISED TO USE THE CALL LIGHT WHEN IN NEED OF ASSISTANCE. ALL MEDS GIVEN AND NURSING NEEDS ATTENDED. WILL ENDORSE TO BLOW MOLD TECHNICIAN FOR CONTINUITY OF CARE.
--- NOTE | 2022-12-07 19:41 | NUR ---
MS RN OPENING NOTES: RECEIVED PATIENT AWAKE IN BED, BED IN LOW POSITION CALL LIGHTS WITHIN REACH, NO COMPLAIN AND DISCOMFORT AT THIS TIME, ON ROOM AIR SATURATING WELL, PATIENT IS A/OX4 ABLE TO MAKE NEEDS KNOWN, AMBULATORY, ON CLINICAL TRIAL, NO CHANGES IN BEHAVIOR WAS OBSERVED, PATIENT KEPT CLEAN AND DRY ALL NEEDS MET WILL CONTINUE TO MONITOR.
[2022-12-07] MEDS: LORAZEPAM 1 MG TABLET PO PRN (19:49)
--- NOTE | 2022-12-07 21:02 | NUR ---
RN NOTES; PATIENT REFUSED BLOOD SUGAR CHECK, PATIENT IS A/OX4
--- NOTE | 2022-12-08 06:45 | NUR ---
MS RN CLOSING NOTES: PATIENT SLEEP IN BED COMFORTABLY, AROUSABLE TO VERBAL STIMULI, BED IN LOW POSITION, CALL LIGHTS WITHIN REACH, N9O COMPLAIN OF PAIN AND DISCOMFORT AT THIS TIME, ON ROOM AIR SATURATING WELL, PATIENT IS A/OX4 AMBULATORY ABLE TO MAKE NEEDS KNOWN, NO BEHAVIORAL CHANGES HAS BEEN OBSERVED DURING THE SHIFT, ENDORSE TO INCOMING SHIFT.
[2022-12-08] MEDS: [UNRECOGNIZED DRUG - REMARK] PO SCH (07:47)
--- NOTE | 2022-12-08 07:53 | NUR ---
RN OPENING NOTE- PATIENT ASLEEP IN ROOM. EASILY AWAKENED, A/OX4. NO S/S OF DISTRESS, BREATHING WITHOUT DIFFICULTY ON ROOM AIR. NO EPS, DENIES SI HI [facility], SAFETY MEASURES IN PLACE: BED LOCKED AND AT LOWEST POSITION, RAILS UP X2. CALL BUSBY WITHIN REACH. MONITOR / ASSIST
[2022-12-08 08:00] VITALS: BP 114/77
[2022-12-08] MEDS: AMLODIPINE 5 MG PO SCH (09:03)
[2022-12-08] MEDS: HCTZ 25 MG PO SCH (09:03)
[2022-12-08] MEDS: LORAZEPAM 1 MG TABLET PO PRN (17:34)
--- NOTE | 2022-12-08 18:32 | NUR ---
RN CLOSING NOTE- PATIENT AWAKE INTERACTIVE, UNCHANGED, , A/OX4. NO S/S OF DISTRESS, BREATHING WITHOUT DIFFICULTY ON ROOM AIR. NO EPS, DENIES SI HI [facility], SAFETY MEASURES IN PLACE: BED LOCKED AND AT LOWEST POSITION, RAILS UP X2. CALL BUSBY WITHIN REACH. MONITOR / ASSIST
[2022-12-08 20:00] VITALS: BP 121/86
--- NOTE | 2022-12-08 20:00 | NUR ---
MS CLINICAL TRIAL NURSE NOTES RECEIVED INSIDE THE ROOM,ON SITTING POSITION WATCHING TV PROGRAM,DENIES ANY DISCOMFORTS,VERBALIZED NEEDS.WILL CONTINUE TO MONITOR BEHAVIOR.
[2022-12-08] MEDS: ZOLPIDEM TARTRATE 10 MG TABLET PO PRN (21:30)
--- NOTE | 2022-12-09 06:44 | NUR ---
MS RN/CLINICAL TRIAL SLEEP WELL WITH AMBIEN,NO BEHAVIORAL PROBLEMS NOTED,ENDORSED
[2022-12-09 07:00] VITALS: BP 123/81
--- NOTE | 2022-12-09 07:25 | NUR ---
MS RN OPENING NOTES PATIENT IN BED ALERT ORIENTED X 4, NO ACUTE DISTRESS NOTED, BREATHING UNLABORED. NO SOB NOTED.SAFETY MEASURES IN PLACE, CALL LIGHT WITHIN REACH. WILL CONTINUE TO MONITOR ACCORDINGLY
[2022-12-09] MEDS: AMLODIPINE 5 MG PO SCH (08:16)
[2022-12-09] MEDS: HCTZ 25 MG PO SCH (08:16)
[2022-12-09] MEDS: [UNRECOGNIZED DRUG - REMARK] PO SCH (08:16)
--- NOTE | 2022-12-09 19:00 | NUR ---
MS RN OPENING NOTE PATIENT JUST CAME BACK FROM OUTSIDE. SHE IS ALERT AND ORIENTED, AO X 4. SHE IS ON RA, TOLERATED WELL. NO S/S OF DISTRESS OR SOB. PATIENT IS ON CLINICAL TRIAL , NO IV ACCESS. PATIENT DENIES OF HAVING PAIN OR DISCOMFORT, NOR ANY BEHAVIORAL CHANGES AT THIS MOMENT. SAFETY MEASURES ARE IN PLACE: BED IN LOWEST AND LOCKED POSITION; CALL LIGHT AND TABLE ARE WITHIN REACH; SIDE RAILS UP X 2. WILL CONTINUE MONITORING THE PATIENT AND PROVIDE THE CARE PATIENT NEEDS.
[2022-12-09] MEDS: ZOLPIDEM TARTRATE 10 MG TABLET PO PRN (21:36)
--- NOTE | 2022-12-09 21:36 | NUR ---
MS RN NOTE PT REQUESTED AMBIEN FOR SLEEPING. PRN ORAL MEDICATION, AMBIEN, GIVEN TO THE PT PER MD ORDER.
--- NOTE | 2022-12-10 06:48 | NUR ---
MS RN CLOSING NOTE PT IS SLEEPING IN BED, EASILY BEING AROUSED. SHE IS ALERT AND ORIENTED, AO X 4. SHE IS ON RA, TOLERATED WELL. NO S/S OF DISTRESS OR SOB. PATIENT IS ON CLINICAL TRIAL , NO IV ACCESS. PATIENT DENIES OF HAVING PAIN OR DISCOMFORT. THROUGHOUT THE SHIFT, PT HASN'T HAD ANY BEHAVIORAL CHANGES. SAFETY MEASURES ARE IN PLACE: BED IN LOWEST AND LOCKED POSITION; CALL LIGHT AND TABLE ARE WITHIN REACH; SIDE RAILS UP X 2. WILL ENDORSE NEXT SHIFT NURSE FOR CONTINUING PT CARE.
--- NOTE | 2022-12-10 07:30 | NUR ---
RN MS NOTES PT IN HER ROOM, AWAKE, ALERT AND ORIENTED, NO COMPLAINT OF PAIN OR ANY DISCOMFORT, BREATHING PATTERN NORMAL, CALL LIGHT WITHIN REACH, NEEDS ATTENDED.
[2022-12-10 08:00] VITALS: BP 127/92
[2022-12-10] MEDS: [UNRECOGNIZED DRUG - REMARK] PO SCH (08:00)
[2022-12-10] MEDS: HCTZ 25 MG PO SCH (08:03)
[2022-12-10] MEDS: AMLODIPINE 5 MG PO SCH (08:03)
--- NOTE | 2022-12-10 19:00 | NUR ---
RN MS NOTES PT IN HER ROOM, EATING DINNER, NO COMPLAINT OF ANY DISCOMFORT, NO BEHAVIOR PROBLEM DURING THE SHIFT.
--- NOTE | 2022-12-10 19:30 | NUR ---
MS RN OPENING NOTE RECEIVED PATIENT, EATING HER DINNER. ALERT AND ORIENTED X4. ABLE TO MAKE NEEDS KNOWN. AFEBRILE AND NOT IN ANY FORM OF ACUTE DISTRESS. BREATHING EVEN AND NON LABORED. NO C/O PAIN OR DISCOMFORT. PATIENT IS ON CLINICAL TRIAL, MONITORED FOR ANY BEHAVIORAL CHANGES. SAFETY MEASURES IN PLACE. KEPT BED IN LOCKED AND IN LOW POSITION. SIDE RAILS UP X2. ADVISED TO USE THE CALL LIGHT WHEN IN NEED OF ASSISTANCE.
[2022-12-10 20:00] VITALS: BP 109/79
[2022-12-10] MEDS: ZOLPIDEM TARTRATE 10 MG TABLET PO PRN (20:49)
--- NOTE | 2022-12-11 06:30 | NUR ---
MS RN CLOSING NOTE PATIENT IN BED, ASLEEP BUT EASY TO AROUSE AND RESPONSIVE. ALERT AND ORIENTED X4. ABLE TO MAKE NEEDS KNOWN. AFEBRILE AND NOT IN ANY FORM OF ACUTE DISTRESS. BREATHING EVEN AND NON LABORED. NO C/O PAIN OR DISCOMFORT THROUGHOUT THE SHIFT. PATIENT IS ON CLINICAL TRIAL, MONITORED FOR ANY BEHAVIORAL CHANGES. SAFETY MEASURES IN PLACE. KEPT BED IN LOCKED AND IN LOW POSITION. SIDE RAILS UP X2. ADVISED TO USE THE CALL LIGHT WHEN IN NEED OF ASSISTANCE. ALL NURSING NEEDS ATTENDED. ENDORSED TO INCOMING SHIFT FOR CONTINUITY OF CARE.
--- NOTE | 2022-12-11 07:23 | NUR ---
MS/CT RN OPENING NOTES RECEIVED PATIENT STANDING IN HER ROOM. A/O X 4, ABLE TO MAKE NEEDS KNOWN, NO C/O PAIN OR DISCOMFORTS AT THIS TIME. NO IV ACCESS PER CT PROTOCOL. ON ROOM AIR, TOLERATING WELL, NO SIGNS OF ACUTE RESPIRATORY DISTRESS NOTED. CALL LIGHT WITHIN EASY REACH OF PT. WILL CONTINUE TO MONITOR PT ACCORDINGLY.
[2022-12-11] MEDS: [UNRECOGNIZED DRUG - REMARK] PO SCH (07:56)
[2022-12-11 08:00] VITALS: BP 113/80
[2022-12-11] MEDS: AMLODIPINE 5 MG PO SCH (08:01)
[2022-12-11] MEDS: HCTZ 25 MG PO SCH (08:01)
[2022-12-11 16:00] VITALS: BP 101/57
[2022-12-11] MEDS: LORAZEPAM 1 MG TABLET PO PRN (16:25)
--- NOTE | 2022-12-11 16:26 | NUR ---
RN NOTES PT VERBALIZED THAT SHE'S ANXIOUS, PRN ATIVAN 1MG TAB PO GIVEN AT 1625. WILL CONTINUE TO MONITOR.
--- NOTE | 2022-12-11 18:56 | NUR ---
MS RN CLOSING NOTES PATIENT IN BED ASLEEP AT THIS TIME, AROUSES EASILY. HOB ELEVATED. . A/O X4. ABLE TO MAKE NEEDS KNOWN. DRESSINGS ON RIGHT HIP C/D/I. ON ROOM AIR TOLERATING WELL, BREATHING EVEN AND UNLABORED. IV ACCESS ON REINIER G#20 SALINE LOCKED, INTACT AND PATENT. ALL NEEDS AND CARE ATTENDED WELL. SAFETY MEASURES IN PLACE: BED IN LOWEST LOCKED POSITION, BED ALARM ON, SIDE-RAILS UP X2 AND CALL LIGHT WITHIN REACH. WILL ENDORSE JUANJO TO BEVERAGE SERVER NURSE. Addendum: 12/11/22 at 1858 by EDDIE LOUISE RN CORRECTION: WRONG PATIENT. CLOSING NOTES FOR ANOTHER PT.
--- NOTE | 2022-12-11 18:58 | NUR ---
MS/CT RN CLOSING NOTES PATIENT RESTING IN HER BED AT THIS TIME. A/O X 4, ABLE TO MAKE NEEDS KNOWN. NO INAPPROPRIATE BEHAVIOR EXHIBITED DURING SHIFT. NO IV ACCESS PER CT PROTOCOL. TOLERATING ROOM AIR WELL, WITH NO SIGNS OF SOB NOTED. NEEDS ATTENDED WELL. BED IN LOWEST LOCKED POSITION. CALL LIGHT WITHIN EASY REACH OF PT. WILL ENDORSE JUANJO AND POC TO VETERINARY BACTERIOLOGIST NURSE.
--- NOTE | 2022-12-11 19:30 | NUR ---
MS RN OPENING NOTES RECEIVED PT RESTING IN HER BED AT THIS TIME. A/O X 4, ABLE TO MAKE NEEDS KNOWN. NO IV ACCESS PER CT PROTOCOL. TOLERATING ROOM AIR WELL, WITH NO SIGNS OF SOB NOTED. BED IN LOWEST LOCKED POSITION. CALL LIGHT WITHIN EASY REACH OF PT. WILL CONTINUE TO MONITOR AND ASSIST.
[2022-12-11 20:00] VITALS: BP 122/71
--- NOTE | 2022-12-12 06:54 | NUR ---
MS RN CLOSING NOTES PT RESTING IN HER BED AT THIS TIME. A/O X 4, ABLE TO MAKE NEEDS KNOWN. NO IV ACCESS PER CT PROTOCOL. STABLE ON ROOM AIR WITH NO SIGNS OF SOB NOTED. BED IN LOWEST LOCKED POSITION. CALL LIGHT WITHIN EASY REACH OF PT. WILL ENDORSE JUANJO TO DAY SHIFT NURSE.
--- NOTE | 2022-12-12 07:07 | NUR ---
MS RN OPENING NOTES RECEIVED PATIENT IN BED AWAKE, A/O X 4, ABLE TO MAKE NEEDS KNOWN, DENIES PAIN OR ANY DISCOMFORTS AT THIS TIME. NO IV ACCESS PER CT PROTOCOL. ON ROOM AIR, TOLERATING WELL, NO SIGNS OF ACUTE RESPIRATORY DISTRESS NOTED. BED IN LOWEST LOCKED POSITION AND CALL LIGHT WITHIN EASY REACH OF PT. WILL CONTINUE TO MONITOR.
[2022-12-12 08:00] VITALS: BP 120/85
[2022-12-12] MEDS: AMLODIPINE 5 MG PO SCH (08:02)
[2022-12-12] MEDS: HCTZ 25 MG PO SCH (08:02)
[2022-12-12] MEDS: [UNRECOGNIZED DRUG - REMARK] PO SCH (08:03)
--- NOTE | 2022-12-12 13:35 | NUR ---
PT VERBALIZED THAT SHE'S ANXIOUS, PRN ATIVAN 1MG TAB PO GIVEN AT 1340. WILL CONTINUE TO MONITOR.
[2022-12-12] MEDS: LORAZEPAM 1 MG TABLET PO PRN (13:40)
[2022-12-12 16:00] VITALS: BP 127/87
--- NOTE | 2022-12-12 19:20 | NUR ---
MS RN OPENING NOTE RECEIVED PATIENT SLEEPING IN BED. PT A/O X 4, ABLE TO MAKE NEEDS KNOWN. DENIES PAIN OR DISCOMFORT AT THIS TIME. NO IV ACCESS. PT ON CLINICAL TRAIL. ON ROOM AIR, TOLERATING RA WELL. NO S/S OF ACUTE RESPIRATORY DISTRESS NOTED. SAFETY MEASURES IMPLEMENTED. BED IN LOWEST LOCKED POSITION, CALL LIGHT WITHIN REACH, SR UP X2. WILL CONTINUE TO MONITOR PT.
[2022-12-12 20:00] VITALS: BP 103/61
--- NOTE | 2022-12-13 06:45 | NUR ---
MS RN CLOSING NOTE LEFT PT AWAKE, AMBULATING IN ROOM. PT A/O X 4, ABLE TO MAKE NEEDS KNOWN. NO IV ACCESS. ON CLINICAL TRIAL. STABLE ON ROOM AIR WITH NO SIGNS OF SOB NOTED. BED IN LOWEST LOCKED POSITION. CALL LIGHT WITHIN EASY REACH. WILL ENDORSE TO DAY SHIFT NURSE FOR JUANJO.
--- NOTE | 2022-12-13 07:20 | NUR ---
MS RN OPENING NOTE RECEIVED PATIENT SLEEPING IN BED BUT EASILY WOKEN UP. PATIENT IS ALERT/ ORIENTED X 4, ABLE TO MAKE NEEDS KNOWN. DENIES PAIN OR DISCOMFORT AT THIS TIME. NO IV ACCESS. PT ON CLINICAL TRAIL, WITH PLEASANT DISPOSITION AT THIS TIME. ON ROOM AIR, TOLERATING RA WELL. NO S/S OF ACUTE RESPIRATORY DISTRESS NOTED. SAFETY MEASURES IMPLEMENTED. BED IN LOWEST LOCKED POSITION, CALL LIGHT WITHIN REACH, SR UP X2. WILL CONTINUE WITH PLAN OF CARE.
--- NOTE | 2022-12-13 07:55 | NUR ---
MS RN NOTE CALLED PHARMACY REGARDING INVESTIGATIONAL DRUG. AWAITING DELIVERY.
[2022-12-13 08:00] VITALS: BP 127/91
[2022-12-13] MEDS: [UNRECOGNIZED DRUG - REMARK] PO SCH (08:00)
--- NOTE | 2022-12-13 08:10 | NUR ---
MS RN NOTE PATIENT REFUSED INVESTIGATIONAL DRUG. SAID SHE IS FOR DISCHARGE TODAY AND DOES NOT NEED TO BE ON NPO. SHE ALSO SAID THAT SHE WILL GO TO THE DOCTOR'S OFFICE TODAY. CALLED DR. AVILA'S OFFICE TO VERIFY. AWAITING CALL BACK.
[2022-12-13] MEDS: AMLODIPINE 5 MG PO SCH (08:11)
[2022-12-13] MEDS: HCTZ 25 MG PO SCH (08:11)
--- NOTE | 2022-12-13 08:35 | NUR ---
MS RN NOTE RECEIVED CALL FROM DR. AC. PATIENT FOR DISCHARGE. PATIENT ON HER WAY TO MD OFFICE FOR BLOOD DRAW. PATIENT WILL RETURN AFTER OFFICE APPOINTMENT, PRIOR TO DISCHARGE.
--- NOTE | 2022-12-13 09:15 | NUR ---
MS RN NOTE PATIENT BACK FROM MD OFFICE ACCOMPANIED BY DR. AC'S STAFF FOR DISCHARGE. DISCHARGE PAPERS SIGNED. HEALTH TEACHINGS DONE AND VERBALZIED UNDERSTANDING AND APPRECIATION. INVESTIGATIONAL DRUG SURRENDERED TO DR. AC'S STAFF AND SHE SAID PHARMACY AWARE. PATIENT FOR DISCHARGE ORDERED. IN STABLE CONDITION. REFUSED TO HAVE BELONGINGS INVENTORIED. ENDORSED ACCORDINGLY.
[2022-12-13] MEDS ORDERED: ZOLPIDEM TARTRATE 10 MG TABLET PO PRN (12:01)
[2022-12-13] MEDS ORDERED: LORAZEPAM 1 MG TABLET PO PRN (12:01)
== END 2022-12-13 10:00 | disposition home or self-care (01) | DRG 951 ==
LOC: MED 14:56
PROVIDERS: ADMIT Psychiatry & Neurology Psychiatry; ATTEND Psychiatry & Neurology Psychiatry
DX: Z00.6 Encounter for examination for normal comparison and control in clinical research program (principal); F20.0 Paranoid schizophrenia; Z20.822 Contact with and (suspected) exposure to COVID-19; Z79.899 Other long term (current) drug therapy; Z90.710 Acquired absence of both cervix and uterus; H50.9 Unspecified strabismus; F32.A Depression, unspecified; I10 Essential (primary) hypertension; Z84.89 Family history of other specified conditions
CPT/HCPCS: 87081-TC; G0378

== ENCOUNTER 2025-02-07 09:14 | Inpatient (IN) | payer OTHER ==
[~2025-02-07] VITALS: Ht 170.2 cm; Wt 105.5 kg
[2025-02-07 16:00] VITALS: BP 103/72; TEMP 98.8; O2SAT 98
[2025-02-07] MEDS ORDERED: LORAZEPAM 1 MG TABLET FOR AGITATION PO PRN (17:00)
[2025-02-07] MEDS ORDERED: ZOLPIDEM TARTRATE 10 MG TABLET PO PRN (17:00)
[2025-02-07] MEDS ORDERED: MAGNESIUM HYDROXIDE 30 ML UDC PO PRN (17:00)
[2025-02-07] MEDS ORDERED: IBUPROFEN 200 MG TABLET PO PRN (17:00)
[2025-02-07] MEDS ORDERED: MAG HYDROX/AL HYDROX/SIMETH 30 ML UDC PO PRN (17:00)
[2025-02-07] MEDS ORDERED: ACETAMINOPHEN ES 500 MG TABLET PO PRN (17:00)
[2025-02-07 20:00] VITALS: BP 104/79; TEMP 98.4; O2SAT 97
[2025-02-07] MEDS: QUETIAPINE 300 MG PO SCH (22:06)
[2025-02-08 08:00] VITALS: BP 108/81; TEMP 97.9; O2SAT 96
[2025-02-08] MEDS: AMLODIPINE 10 MG PO SCH (08:14)
[2025-02-08] MEDS: HYDROCHLOROTHIAZIDE 25 MG PO SCH (08:14)
[2025-02-08 17:27] VITALS: BP 108/78; TEMP 98.1; O2SAT 98
[2025-02-08 20:03] VITALS: BP 112/82; TEMP 98.2; O2SAT 97
[2025-02-08 21:42] VITALS: BP 112/82; TEMP 98.2; O2SAT 97
[2025-02-09 08:21] VITALS: BP 109/78; TEMP 97.9; O2SAT 100
[2025-02-09 08:48] VITALS: BP 109/78; TEMP 97.9; O2SAT 100
[2025-02-09 21:09] VITALS: BP 112/76; TEMP 98.4; O2SAT 99
[2025-02-10 16:00] VITALS: BP 99/70; TEMP 98.2; O2SAT 98
[2025-02-10 20:00] VITALS: BP 111/80; TEMP 98.2; O2SAT 98
[2025-02-11 08:00] VITALS: BP 114/81; TEMP 97.9; O2SAT 100
[2025-02-11 16:00] VITALS: BP 101/78; TEMP 98.6; O2SAT 98
[2025-02-11 20:00] VITALS: BP 104/73; TEMP 98.4; O2SAT 96
[2025-02-12 08:00] VITALS: BP 105/83; TEMP 98.2; O2SAT 97
[2025-02-12 16:00] VITALS: BP 107/84; TEMP 98.6; O2SAT 99
[2025-02-12 20:00] VITALS: BP 96/70; TEMP 97.9; O2SAT 98
[2025-02-13 00:39] VITALS: BP 96/70; TEMP 97.9; O2SAT 98
[2025-02-14 16:00] VITALS: BP 113/87; TEMP 97.7; O2SAT 99
[2025-02-14 20:00] VITALS: BP 105/66; TEMP 98.4; O2SAT 95
[2025-02-15 08:00] VITALS: BP 108/83; TEMP 97.9; O2SAT 100
[2025-02-15 16:00] VITALS: BP 110/78; TEMP 97.5; O2SAT 96
[2025-02-15 20:00] VITALS: BP 106/77; TEMP 98.6; O2SAT 97
[2025-02-16 08:00] VITALS: BP 106/77; TEMP 97.5; O2SAT 99
[2025-02-16 16:00] VITALS: BP 104/78; TEMP 97.7; O2SAT 99
[2025-02-16 20:00] VITALS: BP 112/80; TEMP 98.2; O2SAT 99
[2025-02-17 08:40] VITALS: BP 106/75; TEMP 98.1; O2SAT 97
[2025-02-17 16:32] VITALS: BP 110/83; TEMP 98.1; O2SAT 95
[2025-02-17 20:00] VITALS: BP_SYST 106; BP_SYST 126; BP_DIAS 67; BP_DIAS 79; TEMP 97.9; TEMP 98.2; O2SAT 96; O2SAT 99
[2025-02-18 08:00] VITALS: BP 103/82; TEMP 97.9; O2SAT 98
[2025-02-18 16:00] VITALS: BP 111/83; TEMP 97.9; O2SAT 96
[2025-02-18 20:00] VITALS: BP 103/74; TEMP 98.1; O2SAT 100
[2025-02-19 07:00] VITALS: BP 140/63; TEMP 97.5; O2SAT 94
[2025-02-19 08:00] VITALS: BP 140/63; TEMP 97.5; O2SAT 94
[2025-02-19 16:00] VITALS: BP 119/85; TEMP 98.6; O2SAT 97
[2025-02-19 20:00] VITALS: BP 62/97; TEMP 97.9; O2SAT 94
[2025-02-20 08:00] VITALS: BP 103/75; TEMP 98.1; O2SAT 98
[2025-02-20 16:00] VITALS: BP 109/68; TEMP 98.4; O2SAT 99
[2025-02-20 20:00] VITALS: BP 108/84; TEMP 98.6; O2SAT 96
[2025-02-21 08:26] VITALS: BP 106/80; TEMP 98.1; O2SAT 98
[2025-02-21] MEDS ORDERED: ZOLPIDEM TARTRATE 10 MG TABLET PO PRN (13:00)
[2025-02-21] MEDS ORDERED: LORAZEPAM 1 MG TABLET FOR AGITATION PO PRN (13:00)
[2025-02-21 20:00] VITALS: BP 121/87; TEMP 98.1; O2SAT 99
[2025-02-21] MEDS: INVEST MED OTSUKA 382-201-00035 PO SCH (20:27)
[2025-02-22 16:00] VITALS: BP 106/76; TEMP 98.4; O2SAT 96
[2025-02-22 20:00] VITALS: BP 118/77; TEMP 97.9; O2SAT 95
[2025-02-23 16:14] VITALS: BP 112/73; TEMP 98.2; O2SAT 96
[2025-02-23 20:00] VITALS: BP 117/85; TEMP 97.9; O2SAT 98
[2025-02-23 21:17] VITALS: BP 117/85; TEMP 98.9; O2SAT 98
[2025-02-24 16:00] VITALS: BP 112/80; TEMP 98.2; O2SAT 95
[2025-02-24 20:00] VITALS: BP 108/80; TEMP 98.4; O2SAT 97
[2025-02-25 08:00] VITALS: BP 104/79; TEMP 98.1; O2SAT 99
[2025-02-25 16:00] VITALS: BP 115/77; TEMP 98.4; O2SAT 96
[2025-02-25 20:00] VITALS: BP 111/80; TEMP 98.7; O2SAT 99
[2025-02-26 08:00] VITALS: BP 111/86; TEMP 98.2; O2SAT 99
[2025-02-26 16:00] VITALS: BP 113/90; TEMP 98.8; O2SAT 100
[2025-02-26 20:00] VITALS: BP 109/71; TEMP 98.2; O2SAT 96
[2025-02-27 08:00] VITALS: BP 105/75; TEMP 98.4; O2SAT 98
[2025-02-27 16:00] VITALS: BP 126/90; TEMP 98.2; O2SAT 98
[2025-02-27 20:00] VITALS: BP 118/82; TEMP 98.4; O2SAT 96
[2025-02-28 08:00] VITALS: BP 106/79; TEMP 98.4; O2SAT 99
[2025-02-28] MEDS ORDERED: LORAZEPAM 1 MG TABLET FOR AGITATION PO PRN (13:00)
[2025-02-28] MEDS ORDERED: ZOLPIDEM TARTRATE 10 MG TABLET PO PRN (13:00)
[2025-02-28 16:00] VITALS: BP 106/79; TEMP 98.1; O2SAT 100
[2025-02-28 19:55] VITALS: BP 108/82; TEMP 98.2; O2SAT 99
[2025-03-01 07:11] VITALS: BP 118/83; TEMP 98; O2SAT 96
[2025-03-01 16:00] VITALS: BP 114/84; TEMP 98.4; O2SAT 100
[2025-03-01 20:00] VITALS: BP 122/88; TEMP 98.3; O2SAT 100
[2025-03-02 08:00] VITALS: BP 112/79; TEMP 98.4; O2SAT 99
[2025-03-02 16:00] VITALS: BP 115/89; TEMP 98; O2SAT 99
[2025-03-03 20:00] VITALS: BP 98/69; O2SAT 99
[2025-03-04 08:00] VITALS: BP 110/80; TEMP 98.4; O2SAT 98
[2025-03-04 16:00] VITALS: BP 117/85; TEMP 98.6; O2SAT 100
[2025-03-04 20:26] VITALS: BP 108/83; TEMP 98.2; O2SAT 100
[2025-03-05 20:00] VITALS: BP 116/84; TEMP 98.2; O2SAT 98
[2025-03-06 08:33] VITALS: BP 115/85; TEMP 98.4; O2SAT 98
[2025-03-06 20:00] VITALS: BP 121/83; TEMP 98.1; O2SAT 97
[2025-03-07] MEDS ORDERED: LORAZEPAM 1 MG TABLET FOR AGITATION PO PRN (13:00)
[2025-03-07] MEDS ORDERED: ZOLPIDEM TARTRATE 10 MG TABLET PO PRN (13:00)
[2025-03-07 17:15] VITALS: BP 107/78; TEMP 98.8; O2SAT 99
[2025-03-07 20:00] VITALS: BP 117/72; TEMP 97.7; O2SAT 96
[2025-03-08 07:00] VITALS: BP 109/87; TEMP 98.1; O2SAT 100
[2025-03-08 16:00] VITALS: BP 113/80; TEMP 98.1; O2SAT 98
[2025-03-08 20:30] VITALS: BP 113/89; TEMP 98.1; O2SAT 99
[2025-03-09 08:00] VITALS: BP_SYST 109; BP_SYST 139; BP_DIAS 61; BP_DIAS 82; TEMP 97.5; TEMP 98.1; O2SAT 100; O2SAT 98
[2025-03-09 16:00] VITALS: BP 119/80; TEMP 98.4; O2SAT 99
[2025-03-09 20:00] VITALS: BP 116/88; TEMP 98.2; O2SAT 99
[2025-03-10 08:00] VITALS: BP 105/78; TEMP 98.6; O2SAT 100
[2025-03-10 16:00] VITALS: BP 109/83; TEMP 98.4; O2SAT 99
[2025-03-10 20:00] VITALS: BP 109/80; TEMP 98.4; O2SAT 99
[2025-03-11 13:00] VITALS: BP 110/72; TEMP 98; O2SAT 99
[2025-03-11 20:00] VITALS: BP 106/76; TEMP 98.4; O2SAT 98
[2025-03-12 08:00] VITALS: BP 105/82; TEMP 97.9; O2SAT 100
[2025-03-12 16:00] VITALS: BP 112/83; TEMP 98.8; O2SAT 99
[2025-03-12 20:00] VITALS: BP 125/83; TEMP 97.7; O2SAT 100
[2025-03-13 08:00] VITALS: BP 116/87; TEMP 98.4; O2SAT 98
[2025-03-13 16:00] VITALS: BP_SYST 124; BP_SYST 140; BP_DIAS 90; BP_DIAS 95; TEMP 98.2; TEMP 98.4; O2SAT 100; O2SAT 95
[2025-03-13 20:00] VITALS: BP 112/87; TEMP 97; O2SAT 97
[2025-03-14 08:00] VITALS: BP 113/79; TEMP 98.6; O2SAT 100
[2025-03-14] MEDS ORDERED: LORAZEPAM 1 MG TABLET FOR AGITATION PO PRN (13:00)
[2025-03-14 16:00] VITALS: BP 107/69; TEMP 98.6; O2SAT 98
[2025-03-14 20:00] VITALS: BP 118/76; TEMP 98; O2SAT 100
[2025-03-15] MEDS: ZOLPIDEM TARTRATE 10 MG TABLET PO PRN (01:31)
[2025-03-15 20:00] VITALS: BP 120/90; TEMP 98.6; O2SAT 97
[2025-03-16 16:00] VITALS: BP 121/82; TEMP 98.4; O2SAT 100
[2025-03-16 20:00] VITALS: BP 114/81; TEMP 98.1; O2SAT 97
[2025-03-17 18:00] VITALS: BP 122/83; TEMP 98.3; O2SAT 98
[2025-03-17 20:00] VITALS: BP 120/77; TEMP 98.8; O2SAT 97
[2025-03-18 20:00] VITALS: BP 110/81; TEMP 98.2; O2SAT 100
[2025-03-19 08:00] VITALS: BP 111/77; TEMP 98.2; O2SAT 97
[2025-03-19 16:00] VITALS: BP 109/78; TEMP 98; O2SAT 99
[2025-03-19 20:06] VITALS: BP 105/71; TEMP 98.1; O2SAT 97
[2025-03-20 20:00] VITALS: BP 116/84; TEMP 98.4; O2SAT 99
[2025-03-21 08:00] VITALS: BP 108/78; TEMP 98.1; O2SAT 98
[2025-03-21] MEDS ORDERED: LORAZEPAM 1 MG TABLET FOR AGITATION PO PRN (13:00)
[2025-03-21] MEDS ORDERED: ZOLPIDEM TARTRATE 10 MG TABLET PO PRN (13:00)
[2025-03-21 16:50] VITALS: BP 113/78; TEMP 97.8; O2SAT 98
[2025-03-21 20:00] VITALS: BP 104/66; TEMP 98.6; O2SAT 98
[2025-03-22 18:02] VITALS: BP 123/82; TEMP 98.6; O2SAT 96
[2025-03-22 20:00] VITALS: BP 111/75; TEMP 98.2; O2SAT 100
[2025-03-23 08:00] VITALS: BP 128/83; TEMP 98.4; O2SAT 98
[2025-03-23 16:00] VITALS: BP 105/78; TEMP 98.1; O2SAT 98
[2025-03-23 19:52] VITALS: BP 112/74; TEMP 98.4; O2SAT 98
[2025-03-24 17:59] VITALS: BP 122/90; TEMP 97.8; O2SAT 98
[2025-03-24 20:00] VITALS: BP 121/95; TEMP 98.6; O2SAT 98
[2025-03-25 16:00] VITALS: BP 116/78; TEMP 98.1; O2SAT 98
[2025-03-25 20:44] VITALS: BP 114/82; TEMP 98.4; O2SAT 98
[2025-03-26 17:00] VITALS: BP 122/86; TEMP 98.3; O2SAT 98
[2025-03-26 20:00] VITALS: BP 132/86; TEMP 98.4; O2SAT 97
[2025-03-27 08:00] VITALS: BP 122/85; TEMP 98.2; O2SAT 99
[2025-03-27 16:00] VITALS: BP 115/81; TEMP 98.4; O2SAT 99
[2025-03-27 20:00] VITALS: BP 126/87; TEMP 98.6; O2SAT 100
[2025-03-28 07:58] VITALS: BP 115/81; TEMP 98.8; O2SAT 98
[2025-03-28] MEDS ORDERED: LORAZEPAM 1 MG TABLET FOR AGITATION PO PRN (13:00)
[2025-03-28] MEDS ORDERED: ZOLPIDEM TARTRATE 10 MG TABLET PO PRN (13:00)
[2025-03-28 16:00] VITALS: BP 119/92; TEMP 98.6; O2SAT 100
[2025-03-28 20:10] VITALS: BP 122/91; TEMP 98.2; O2SAT 96
[2025-03-29 16:00] VITALS: BP 114/88; TEMP 98.6; O2SAT 96
[2025-03-29 20:04] VITALS: BP 114/87; TEMP 98.4; O2SAT 99
[2025-03-30 07:25] VITALS: BP 97/76; TEMP 98.2; O2SAT 97
[2025-03-30 07:28] VITALS: BP 127/96; TEMP 98.4; O2SAT 98
[2025-03-30 16:00] VITALS: BP_SYST 105; BP_SYST 112; BP_DIAS 77; BP_DIAS 78; TEMP 98.5; TEMP 98.8; O2SAT 99
[2025-03-30 20:00] VITALS: BP 124/77; TEMP 98.7; O2SAT 100
[2025-03-31 19:56] VITALS: BP 120/87; TEMP 98.4; O2SAT 99
[2025-04-03] MEDS: SEROQUEL 300 MG PO SCH (21:19)
[2025-04-06] MEDS: SEROQUEL 300 MG PO SCH (22:37)
[2025-04-08 18:03] VITALS: BP 132/103
[2025-04-10] MEDS: SEROQUEL 300 MG PO SCH (22:00)
== END 2025-04-11 12:55 | disposition home or self-care (01) | DRG 951 ==
LOC: MED 15:03 → MEDSG2 02-25 11:25 → MED 04-01 17:17
PROVIDERS: ADMIT Psychiatry & Neurology Psychiatry; ATTEND Psychiatry & Neurology Psychiatry
DX: Z00.6 Encounter for examination for normal comparison and control in clinical research program (principal); F20.0 Paranoid schizophrenia; H50.9 Unspecified strabismus; G47.00 Insomnia, unspecified; Z91.048 Other nonmedicinal substance allergy status
CPT/HCPCS: G0378

== ENCOUNTER 2025-08-12 15:01 | Inpatient (IN) | payer OTHER ==
[~2025-08-12] VITALS: Ht 170.2 cm; Wt 104.3 kg
[2025-08-12] MEDS ORDERED: QUETIAPINE 300 MG PO SCH (16:41)
[2025-08-12] MEDS ORDERED: IBUPROFEN 200 MG TABLET PO PRN (16:41)
[2025-08-12] MEDS ORDERED: SEROQUEL 300 MG PO SCH ×3 (16:41)
[2025-08-12] MEDS ORDERED: MAGNESIUM HYDROXIDE 30 ML UDC PO PRN (16:41)
[2025-08-12] MEDS ORDERED: MAG HYDROX/AL HYDROX/SIMETH 30 ML UDC PO PRN (16:41)
[2025-08-12] MEDS ORDERED: INVEST MED OTSUKA 382-201-00035 PO SCH (16:41)
[2025-08-12] MEDS ORDERED: LORAZEPAM 1 MG TABLET FOR AGITATION PO PRN ×7 (16:41)
[2025-08-12] MEDS ORDERED: ZOLPIDEM TARTRATE 10 MG TABLET PO PRN ×8 (16:41→22:00)
[2025-08-12] MEDS ORDERED: HYDROCHLOROTHIAZIDE 25 MG PO SCH (16:41)
[2025-08-12] MEDS ORDERED: AMLODIPINE 10 MG PO SCH (16:41)
[2025-08-12 17:30] VITALS: BP 131/87; TEMP 98.2; O2SAT 100
[2025-08-12 20:00] VITALS: BP 131/87; TEMP 98.2; O2SAT 100
[2025-08-12] MEDS: QUETIAPINE 300 MG PO SCH (21:08)
[2025-08-13] MEDS: HYDROCHLOROTHIAZIDE 25 MG PO SCH (08:23)
[2025-08-13] MEDS: AMLODIPINE 10 MG PO SCH (08:24)
[2025-08-13 08:43] VITALS: BP 137/95; TEMP 98.2; O2SAT 96
[2025-08-13 20:00] VITALS: BP 108/67; TEMP 98.1; O2SAT 96
[2025-08-14 08:00] VITALS: BP 106/72; TEMP 98.4; O2SAT 96
[2025-08-14 16:14] VITALS: BP 110/85; TEMP 98.2; O2SAT 98
[2025-08-14 20:00] VITALS: BP 126/93; TEMP 98.2; O2SAT 98
[2025-08-14] MEDS: SEROQUEL 200 MG PO SCH (22:00)
[2025-08-15 08:00] VITALS: BP 106/74; TEMP 98.6; O2SAT 98
[2025-08-15 16:00] VITALS: BP 109/87; TEMP 98.4; O2SAT 97
[2025-08-15 20:00] VITALS: BP 116/74; TEMP 98.1; O2SAT 99
[2025-08-16 07:41] VITALS: BP 118/85; TEMP 98.4; O2SAT 96
[2025-08-16 10:00] VITALS: BP 118/85; TEMP 98.6; O2SAT 97
[2025-08-16 20:00] VITALS: BP 118/93; TEMP 97.4; O2SAT 94
[2025-08-16] MEDS: SEROQUEL 100 MG PO SCH (22:09)
[2025-08-17 08:00] VITALS: BP 133/82; TEMP 98.2; O2SAT 94
[2025-08-17 20:06] VITALS: BP 121/95; TEMP 98.2; O2SAT 100
[2025-08-18 09:03] VITALS: BP 130/81; TEMP 98.4; O2SAT 100
[2025-08-18 16:00] VITALS: BP 118/77; TEMP 98.6; O2SAT 99
[2025-08-18 20:00] VITALS: BP 118/82; TEMP 97.6; O2SAT 97
[2025-08-19 20:00] VITALS: BP 102/73; TEMP 98.2; O2SAT 100
[2025-08-20 08:00] VITALS: BP 115/86; TEMP 98.4; O2SAT 100
[2025-08-20 20:00] VITALS: BP 114/87; TEMP 98.2; O2SAT 100
[2025-08-21 08:00] VITALS: BP 107/76; TEMP 98.6; O2SAT 100
[2025-08-21 20:00] VITALS: BP 121/88; TEMP 98; O2SAT 97
[2025-08-22 08:00] VITALS: BP 106/90; TEMP 98.5; O2SAT 98
[2025-08-22 15:00] VITALS: BP 111/87; TEMP 98.7; O2SAT 98
[2025-08-22] MEDS: LORAZEPAM 1 MG TABLET FOR AGITATION PO PRN (15:26)
[2025-08-23 08:00] VITALS: BP 114/73; TEMP 98.1; O2SAT 97
[2025-08-23 12:00] VITALS: BP 112/78; TEMP 97.9; O2SAT 98
[2025-08-23 16:00] VITALS: BP 116/82; TEMP 98.4; O2SAT 97
[2025-08-23 20:00] VITALS: BP 122/88; TEMP 97.9; O2SAT 97
[2025-08-24 14:55] VITALS: BP 112/84; TEMP 98.8; O2SAT 98
[2025-08-24 15:30] VITALS: BP 112/84; TEMP 98.8; O2SAT 98
[2025-08-24 20:00] VITALS: BP 116/76; O2SAT 98
[2025-08-25 08:00] VITALS: BP 106/78; TEMP 98.1; O2SAT 99
[2025-08-25] MEDS ORDERED: ZOLPIDEM TARTRATE 10 MG TABLET PO PRN (13:00)
[2025-08-25] MEDS ORDERED: LORAZEPAM 1 MG TABLET FOR AGITATION PO PRN (13:00)
[2025-08-25 20:00] VITALS: BP 117/83; TEMP 98.4; O2SAT 96
[2025-08-26] MEDS ORDERED: ENSURE ENLIVE 237 ML LIQUID (VANILLA) PO SCH ×2 (05:30→08:00)
[2025-08-26] MEDS: INVEST MED ML-007C-A-211 1 TAB EA BOTTLE AM PO ONE (06:33)
[2025-08-26 08:02] VITALS: BP 114/80; TEMP 97.8; O2SAT 98
[2025-08-26] MEDS: ENSURE ENLIVE CHOC 237 ML CAN PO SCH (18:26)
[2025-08-26] MEDS: INVEST MED ML-007C-A-211 1TAB EA BOTTLE PM PO SCH (18:30)
[2025-08-26 20:06] VITALS: BP 109/77; TEMP 98.6; O2SAT 99
[2025-08-27] MEDS: INVEST MED ML-007C-A-211 1 TAB EA BOTTLE AM PO SCH (06:32)
[2025-08-27 08:00] VITALS: BP 117/83; TEMP 98.6; O2SAT 99
[2025-08-27] MEDS: ENSURE ENLIVE CHOC 237 ML CAN PO SCH (17:54)
[2025-08-27 20:00] VITALS: BP 131/87; TEMP 98.1; O2SAT 97
[2025-08-28 08:11] VITALS: BP 124/78; TEMP 98; O2SAT 97
[2025-08-28 16:02] VITALS: BP 125/88; TEMP 98.2; O2SAT 98
[2025-08-28 20:00] VITALS: BP 114/78; TEMP 98.4; O2SAT 100
[2025-08-29 08:27] VITALS: BP 116/72; TEMP 98.1; O2SAT 97
[2025-08-29 20:00] VITALS: BP 116/84; TEMP 98.1; O2SAT 100
[2025-08-30 08:00] VITALS: BP 119/83; TEMP 98.1; O2SAT 100
[2025-08-30 20:11] VITALS: BP 113/78; TEMP 98.7; O2SAT 97
[2025-08-31 08:00] VITALS: BP 118/72; TEMP 98.1; O2SAT 97
[2025-08-31 20:48] VITALS: BP 116/74; TEMP 98; O2SAT 97
[2025-09-01 08:00] VITALS: BP 103/78; TEMP 98.2
[2025-09-01] MEDS ORDERED: ZOLPIDEM TARTRATE 10 MG TABLET PO PRN (13:00)
[2025-09-01] MEDS ORDERED: LORAZEPAM 1 MG TABLET FOR AGITATION PO PRN (13:00)
[2025-09-01 16:30] VITALS: BP 122/93; TEMP 98.6; O2SAT 97
[2025-09-01 20:00] VITALS: BP 120/79; TEMP 98.1; O2SAT 98
[2025-09-02 16:22] VITALS: BP 121/86; TEMP 98.6; O2SAT 97
[2025-09-03 08:00] VITALS: BP 123/86; TEMP 98.2; O2SAT 98
[2025-09-03 20:00] VITALS: BP 114/81; TEMP 98.1; O2SAT 96
[2025-09-04 20:00] VITALS: BP 112/80; TEMP 98.4; O2SAT 98
[2025-09-05 08:16] VITALS: BP 112/76; TEMP 98.4; O2SAT 98
[2025-09-05 20:07] VITALS: BP 117/66; TEMP 97.9; O2SAT 100
[2025-09-06 16:20] VITALS: BP 128/88; TEMP 98.2
[2025-09-06 20:05] VITALS: BP 105/72; TEMP 97.9; O2SAT 100
[2025-09-07 08:00] VITALS: BP 110/82; TEMP 98.1; O2SAT 100
[2025-09-08 08:00] VITALS: BP 107/75; TEMP 98.1; O2SAT 100
[2025-09-08] MEDS ORDERED: ZOLPIDEM TARTRATE 10 MG TABLET PO PRN (13:00)
[2025-09-08] MEDS ORDERED: LORAZEPAM 1 MG TABLET FOR AGITATION PO PRN (13:00)
[2025-09-08 20:06] VITALS: BP 114/88; TEMP 97.8; O2SAT 100
[2025-09-09 16:00] VITALS: BP 118/80; TEMP 98.2; O2SAT 98
[2025-09-09 20:03] VITALS: BP 124/81; TEMP 97.6; O2SAT 98
[2025-09-10 10:12] VITALS: BP 119/77; TEMP 97.8; O2SAT 99
[2025-09-11 08:00] VITALS: BP 122/84; TEMP 98.1; O2SAT 99
[2025-09-11 17:30] VITALS: TEMP 98.1; O2SAT 97
[2025-09-11 20:22] VITALS: BP 102/73; TEMP 98.1; O2SAT 97
[2025-09-12 20:00] VITALS: BP 127/85; TEMP 97.7; O2SAT 97
[2025-09-13 18:20] VITALS: BP 137/99; TEMP 98.1; O2SAT 97
[2025-09-13 20:00] VITALS: BP 137/91; TEMP 97.7; O2SAT 99
[2025-09-14 08:13] VITALS: BP 114/79; TEMP 98; O2SAT 99
[2025-09-14 16:00] VITALS: BP 118/77; TEMP 98.1; O2SAT 99
[2025-09-14 20:00] VITALS: BP 129/84; TEMP 98.2; O2SAT 98
[2025-09-15 07:40] VITALS: BP 118/78; TEMP 98.1
[2025-09-15] MEDS ORDERED: ZOLPIDEM TARTRATE 10 MG TABLET PO PRN (13:00)
[2025-09-15] MEDS ORDERED: LORAZEPAM 1 MG TABLET FOR AGITATION PO PRN (13:00)
[2025-09-15 16:00] VITALS: BP 118/79; TEMP 98.2
[2025-09-16 17:54] VITALS: BP 116/75; TEMP 98.2; O2SAT 98
[2025-09-16 20:00] VITALS: BP 123/80; TEMP 98; O2SAT 98
[2025-09-17 16:40] VITALS: BP 117/87; TEMP 97.8; O2SAT 98
[2025-09-18 08:01] VITALS: BP 117/78; TEMP 98.2; O2SAT 100
[2025-09-18 19:39] VITALS: BP 111/79; TEMP 98.4; O2SAT 98
[2025-09-19 08:06] VITALS: BP 111/79; TEMP 98.2; O2SAT 100
[2025-09-19 16:00] VITALS: BP 115/79; TEMP 98.2; O2SAT 97
[2025-09-19] MEDS: ACETAMINOPHEN ES 500 MG TABLET PO PRN (19:41)
[2025-09-20 20:00] VITALS: BP 109/85; TEMP 98.2; O2SAT 99
[2025-09-21 16:00] VITALS: BP 119/86; TEMP 98.1; O2SAT 97
[2025-09-22 08:00] VITALS: BP 112/81; TEMP 98.1; O2SAT 97
[2025-09-22] MEDS ORDERED: ZOLPIDEM TARTRATE 10 MG TABLET PO PRN (13:00)
[2025-09-22] MEDS ORDERED: LORAZEPAM 1 MG TABLET FOR AGITATION/ANXIETY PO PRN (13:00)
[2025-09-22 16:00] VITALS: BP 121/92; TEMP 98.6; O2SAT 100
[2025-09-22 20:00] VITALS: BP 108/67; TEMP 97.3; O2SAT 100
[2025-09-22 22:54] VITALS: BP 108/67; TEMP 98.4; O2SAT 100
[2025-09-23 20:02] VITALS: BP 106/85; TEMP 97.9; O2SAT 99
[2025-09-24 20:00] VITALS: BP 117/83; TEMP 98.2; O2SAT 97
[2025-09-25 00:16] VITALS: BP 117/83; TEMP 98.2; O2SAT 97
[2025-09-25 20:00] VITALS: BP 111/77; TEMP 97.7; O2SAT 99
== END 2025-09-26 09:30 | disposition home or self-care (01) | DRG 951 ==
LOC: MEDSG2 16:10 → MED 09-19 11:00
PROVIDERS: ADMIT Psychiatry & Neurology Psychiatry; ATTEND Psychiatry & Neurology Psychiatry
DX: Z00.6 Encounter for examination for normal comparison and control in clinical research program (principal); F20.0 Paranoid schizophrenia; I10 Essential (primary) hypertension; G47.00 Insomnia, unspecified; Z60.4 Social exclusion and rejection; Z90.710 Acquired absence of both cervix and uterus; H50.9 Unspecified strabismus; Z83.79 Family history of other diseases of the digestive system
CPT/HCPCS: G0378